=== PATIENT | male | born 1960 | race Caucasian/White ===

== ENCOUNTER 2021-08-16 10:30 | Emergency (ER) | payer OTHER, SELFPAY ==
[2021-08-16 10:47] VITALS: BP 158/78; PULSE 156; RESP 20; TEMP 37.9; O2SAT 100
--- NOTE | 2021-08-16 10:59 | ED.GENADULT ---
HPI - General Adult General Chief complaint: Abdominal Pain Stated complaint: abd pain/cough/uti Time Seen by Provider: 08/16/21 10:49 Source: patient Mode of arrival: ambulatory Limitations: no limitations History of Present Illness HPI narrative: 60-year-old male presented for multiple complaints including abdominal pain with associated left lower abdominal bulge, worsening over the past 3 weeks; decreased urinary output, decreased appetite with n/v/d. Endorses weakness and shortness of breath. Nephew at bedside also endorses yellow eyes and skin discoloration. Endorses night sweats. Denies hematuria or hematochezia or melena. Denies chest pain or palpitations. He drinks 1/5 of vodka daily none in the last 2 days, tremors noted. He smokes 1 pack/day. Related Data Home Medications Medication Instructions Recorded Confirmed No Home Medications 08/16/21 08/16/21 Allergies Allergy/AdvReac Type Severity Reaction Status Date / Time No Known Allergies Allergy Verified 08/16/21 10:33 Review of Systems Review of Systems: CONSTITUTIONAL: Endorses night sweats EYES: Endorses yellow discoloration denies visual changes ENT: Denies rhinorrhea, congestion CARDIOVASCULAR: Denies chest pain, palpitations, or edema. RESPIRATORY: Endorses shortness of breath and weakness denies cough GASTROINTESTINAL: Endorses abdominal pain, nausea, vomiting, diarrhea. Denies hematochezia, melena, hematemesis GENITOURINARY: Decreased urinary output denies dysuria, hematuria, or CVA tenderness. SKIN: Yellow discoloration, denies rash, itching, or wounds. MUSCULOSKELETAL: Denies back pain, joint pain, or myalgia. NEUROLOGIC: Denies headache, numbness, tingling, or weakness. PSYCH: Denies mood change All systems reviewed & are unremarkable except as noted in HPI and below PMFSH Comments At time of signature, I have reviewed and agree with nursing past medical, surgical, social and family history unless otherwise noted. Please see nursing chart for further information. There is no relevant family history pertinent to the presenting complaint Exam Narrative: GENERAL: toxic appearing, appears older than stated age HEAD: Normocephalic, atraumatic. EYES: EOMI. yellow sclera ENT: Mucous membranes pink and moist. NECK: Normal AROM. Supple. CHEST: right lower lobe wheezing labored, without respiratory distress. HEART:tachycardic, irregular No murmur appreciated. ABDOMEN: Tender abdomen: LLQ with guarding, asymmetry due to left lower bulging mass approx 5inches diameter, no bruising/discoloration; distended MUSCULOSKELETAL: No bony tenderness. EXTREMITIES: Normal range of motion. No edema. SKIN: Warm, dry, jaundice NEURO: Tremors to hands Alert and oriented x3. Gait unsteady/weakness. Course Course Emergency Course: Pt presented with multiple complaints, given presentation and exam, advised to go to ER for further evaluation and management. Pt agreeable to EMS transfer. EKG showed afib rvr. Patient is aware of diagnosis, understands and agrees to treatment plan. Anticipatory guidance given. Portions of this record may have been created with voice recognition software Level of Care: Express Care Visit Vital Signs Vital signs: Vital Signs Temperature 100.3 F H 08/16/21 10:47 Pulse Rate 156 H 08/16/21 10:47 Respiratory Rate 20 08/16/21 10:47 Blood Pressure 158/78 H 08/16/21 10:47 Pulse Oximetry 100 08/16/21 10:47 Temperature 100.3 F H 08/16/21 10:47 Pulse Rate 156 H 08/16/21 10:47 Respiratory Rate 20 08/16/21 10:47 Blood Pressure 158/78 H 08/16/21 10:47 Pulse Oximetry 100 08/16/21 10:47 reviewed Transfer Transfered to: [facility] rationale: Pt is agreeable to transfer for higher level of care. Requests transfer to [facility] via ambulance. Risks of transportation reviewed with pt; including injury, worsening of condition and . v/u. Report called to Dr Corbett, accepting physician
[2021-08-16 11:14] VITALS: PULSE 156; RESP 26; O2SAT 100
--- NOTE | 2021-08-16 11:28 | ECG_ITS ---
Measurements Intervals [place] Rate: 151 P: [place]: 0 QRS: 54 QRSD: 86 T: 59 QT: 327 QTc: 520 Interpretive Statements ATRIAL FIBRILLATION WITH RAPID VENTRICULAR RESPONSE VENTRICULAR PREMATURE COMPLEXES NONSPECIFIC ST & T-WAVE ABNORMALITY- ANTEROLAT/INF LEADS BASELINE ARTIFACT- I, III, AVL ABNORMAL ECG Electronically Signed On 08-16-2021 12:40:18 FUNERAL PRE NEED CONSULTANT by Philip Casarez D.O.
== END 2021-08-16 11:14 | disposition short-term general hospital (02) ==
PROVIDERS: Emergency Provider Nurse Practitioner Family
DX: I48.91 Unspecified atrial fibrillation (principal); R10.32 Left lower quadrant pain
CPT/HCPCS: 93005; 99215; G0463

== ENCOUNTER 2021-08-16 11:31 | Inpatient (IN) | payer OTHER, SELFPAY ==
[2021-08-16] VITALS (15 sets, daily range): BP systolic 92–145; BP diastolic 66–96; PULSE 79–912; RESP 16–24; TEMP 36.6–37.6; O2SAT 94–100; BMI 28.2
--- NOTE | ~2021-08-16 | CT_ITS ---
EXAMINATION: CT abdomen pelvis w con INDICATION: Abdominal pain and jaundice TECHNIQUE: Computed tomographic images of the abdomen and pelvis were obtained after the administrati on of 100 cc of Omnipaque 350 intravenous contrast. The dose-length product (DLP) was 754.32 mGy-cm. Automated exposure control and iterative reconstruction technique were employed. COMPARISON: None available FINDINGS: Minimal dependent atelectasis is present in the lung bases. The heart size is normal. There is heterogeneous enhancement of the liver a nodularity of the liver surface. The gallbladder is dist ended and contains multiple stones. The spleen, pancreas, and adrenal glands are normal. Hypoattenuat ing lesions in the kidneys, measuring up to 5 mm on the left, are too small to characterize but likel y represent cysts. There is calcified atherosclerosis of the aorta and many of the other arteries. T here is colonic diverticulosis with wall thickening of the sigmoid colon. There is an apparent fistul ous connection to an abscess of the anterior/superior bladder wall. The abscess measures approximatel y 13 x 10 x 15 cm and extends from the superior bladder wall anteriorly into the infraumbilical abdom inal wall. A second component of the abscess extends into the mesentery between the large and small b owel, best appreciated on coronal reconstructed image 81. There is moderate thoracic and lumbar spond ylosis. IMPRESSION: 1. Distended gallbladder with cholelithiasis, possible acute cholecystitis. Consider nuclear hepatobi liary scan. 2. Large abscess of the pelvis and lower abdominal wall, possibly due to fistulization between the si gmoid colon and bladder or urachal remnant. General and urologic surgical evaluation recommended. 3. Cirrhosis. These findings and recommendations were discussed with Dr. Jerad Maradiaga MD in the Emergency Dep artment at 1333 hours on 08/16/2021. Reviewed, dictated and finalized at location A. TRONIC TESTER IMPRESSION: 1. Distended gallbladder with cholelithiasis, possible acute cholecystitis. Con acupuncturist nuclear hepatobiliary scan. 2. Large abscess of the pelvis and lower abdominal wall, possibly due to fistul ization between the sigmoid colon and bladder or urachal remnant. General and u rologic surgical evaluation recommended. 3. Cirrhosis. These findings and recommendations were discussed with Garcia Escalona in the Emergency Department at 1333 hours on 08/16/2021.
--- NOTE | ~2021-08-16 | CT_ITS ---
EXAMINATION: CT abdomen pelvis w con DATE: 08/21/2021 08:56 INDICATION: Pelvic abscess. TECHNIQUE: Computed tomography (CT) of the abdomen and pelvis was performed with 100 mL Omnipaque 350 intravenous contrast. Automated exposure control and iterative reconstruction technique were employe d. The dose-length product was 720.47 mGy-cm. COMPARISON: CT abdomen and pelvis 08/16/2021 FINDINGS: The visualized portions of the lung bases demonstrate minimal atelectasis. There is a 4 mm nodule in left lower lobe, likely benign. No pleural effusion. The heart size is normal. No pericardi al effusion. The liver demonstrates steatosis and surface nodularity, consistent with cirrhosis. The gallbladder is distended and contains gallstones. Gallbladder wall thickening is noted. The spleen, p ancreas, adrenal glands, and kidneys are normal. There are scattered diverticula in the colon. There is wall thickening of the sigmoid colon. There is a network of fistulas between the sigmoid colon, ap pendix, small bowel, and anterosuperior bladder wall. There is anterosuperior wall thickening of the bladder. There is a percutaneous drain in expected position. No significant residual drainable fluid. There is a small volume of ascites. There are no pathologically enlarged lymph nodes. There is mild thoracolumbar spondylosis. IMPRESSION: 1. 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 Drain in expected position in this area without significant residual drainable fluid at this rocael e. 2. Small volume of ascites. 3. Cirrhosis of the liver. 4. Distended gallbladder with gallstones and gallbladder wall thickening. These findings are indeterm inate for acute cholecystitis given that gallbladder wall thickening is an expected finding with cirr hosis. Consider hepatobiliary scintigraphy. Reviewed, dictated and finalized at location A. BUYER IMPRESSION: 1. 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 Drain in expected position in this area without sign ificant residual drainable fluid at this time. 2. Small volume of ascites. 3. Cirrhosis of the liver. 4. Distended gallbladder with gallstones and gallbladder wall thickening. These findings are indeterminate for acute cholecystitis given that gallbladder wall thickening is an expected finding with cirrhosis. Consider hepatobiliary scint igraphy.
--- NOTE | ~2021-08-16 | XR_ITS ---
EXAMINATION: CYSTOGRAM DATE: 08/16/2021 16:00 INDICATION: Colovesical fistula TECHNIQUE: Initial uniform maker radiograph of the pelvis was performed. There was retrograde administration of Omnipaque 350 mixed with saline contrast into patient's existing Leo catheter. 16 fluoroscopic images of the pelvis were obtained including a postvoid image. Fluoroscopy exposure time was 0.8 yan brenden. FINDINGS: There is contrast within the bilateral renal collecting systems, ureters and bladder on the initial s cout image likely related to the prior contrast enhanced CT. The contrast in the bladder outlines the lunate consistent Leo catheter bulb and demonstrates a trabeculated mucosal contour. There is no e xtraluminal contrast accumulation on the initial uniform maker image or following the cystogram with addition al contrast filling of the bladder to suggest either bladder leak, fistulous communication to the bow el or communication with what appears to be an intramural or subserosal abscess at the dome of the bl adder on the prior CT. Some bladder spasm with spontaneous emptying of the bladder occurred during th e retrograde administration of contrast. IMPRESSION: 1. No evident bladder leak, fistulous communication to the bowel or communication with a suspected i ntramural or subserosal abscess at the dome of the bladder suspected based upon prior CT imaging. Reviewed, dictated and finalized at location A. RICTIVE PREPARATION OPERATOR IMPRESSION: 1. No evident bladder leak, fistulous communication to the bowel or communicat ion with a suspected intramural or subserosal abscess at the dome of the bladde r suspected based upon prior CT imaging.
--- NOTE | ~2021-08-16 | XR_ITS ---
EXAMINATION: XR chest 1V portable INDICATION: Cough TECHNIQUE: Portable AP chest at 1143 hours COMPARISON: None available FINDINGS: There are patchy airspace opacities throughout the lungs. No pleural effusion or pneumothor ax is identified. The cardiomediastinal silhouette is normal. IMPRESSION: 1. Patchy bilateral airspace opacities, likely pneumonia. Reviewed, dictated and finalized at location A. CLABLE MATERIALS COLLECTOR
--- NOTE | 2021-08-16 11:36 | ECG_ITS ---
Measurements Intervals [place] Rate: 138 P: 76 DE: 160 QRS: 58 QRSD: 92 T: 81 QT: 350 QTc: 531 Interpretive Statements SINUS TACHYCARDIA BORDERLINE ST-T WAVE ABNORMALITY- INF/HIGH LAT LEADS BASELINE ARTIFACT- I, II, III, AVR, AVL, AVF, V1-V6 ABNORMAL ECG Electronically Signed On 08-16-2021 13:56:24 PROJECT GEOPHYSICIST by Philip Casarez D.O.
[2021-08-16 12:09] LABS: Hematocrit 32.8 % (42.0-52.0); Hemoglobin 11.3 g/dL (14.0-18.0); Mean Corpuscular HGB Conc 34.5 g/dl (32-36); Mean Corpuscular Volume 107.5 fl (80-100); Mean Platelet Volume 11.8 fl (7.4-10.4); Platelet Count Result 195 k/mm3 (150-375); Red Blood Count 3.05 M/mm3 (4.6-6.20); Red Cell Distribution Width 13.8 % (11.5-14.5); White Blood Count 12.1 K/mm3 (4.5-10.0)
[2021-08-16 12:20] LABS: INR 1.4; Prothrombin Time 16.2 Seconds (11.1-14.7)
[2021-08-16 12:21] LABS: Partial Thromboplastin Time 25.4 SECONDS (22.3-36.8)
--- NOTE | 2021-08-16 12:21 | PC.NURSE ---
Pt states he has not seen his PCP in 1.5 years due to her moving. States he was in his usual state of health until approximately 3 weeks ago. He began having a cough and weakness. States he stopped drinking 3 days ago. Reports shaking and yellowing that is new.
--- NOTE | 2021-08-16 12:27 | ED.ABDPAIN ---
HPI - Abdominal Pain General Chief Complaint: Abdominal Pain Stated Complaint: abd pain Time Seen by Provider: 08/16/21 12:16 Source: patient Mode of arrival: ambulatory Limitations: no limitations History of Present Illness HPI narrative: Patient is a 6-year-old male complaining of abdominal distention and discomfort, from mid to lower abdomen, nonradiating, accompanied by yellowing of his skin that started 3 days ago. Patient denies any nausea, vomiting, diarrhea, urinary symptoms, fever or chills. Patient denies any chest pain, shortness of breath or GI bleed. Patient admits to drinking alcohol daily for long time. Related Data Home Medications Medication Instructions Recorded Confirmed No Home Medications 08/16/21 08/16/21 Allergies Allergy/AdvReac Type Severity Reaction Status Date / Time No Known Allergies Allergy Verified 08/16/21 10:33 Review of Systems Review of Systems: All systems reviewed & are unremarkable except as noted in HPI and below Constitutional: Constitutional: Denies body ache(s), Denies chills, Denies excessive sweating, Denies fatigue, Denies fever(s), Denies headache(s), Denies lethargy, Denies malaise, Denies weakness and Denies weight loss Eyes: Eyes: Denies blurry vision, Denies change in vision and Denies loss of vision ENT: Denies dizziness, Denies ear discharge, Denies headache(s), Denies lip swelling, Denies epistaxis, Denies nasal congestion, Denies neck pain, Denies throat swelling and Denies tongue swelling Cardiovascular: Cardiovascular: Denies chest pain, Denies chest pain at rest, Denies chest pain with activity, Denies diaphoresis, Denies rapid heart rate, Denies edema, Denies irregular heart rhythm, Denies lightheadedness, Denies palpitations, Denies dyspnea and Denies dyspnea on exertion Respiratory: Respiratory: Denies chest congestion, Denies cough, Denies hemoptysis, Denies dyspnea and Denies dyspnea on exertion Gastrointestinal: Gastrointestinal: Denies melena, Denies hematochezia, Denies diarrhea, Denies nausea, Denies vomiting and Denies hematemesis Musculoskeletal: Musculoskeletal: Denies abnormal gait, Denies deformity, Denies joint swelling, Denies limited range of motion, Denies neck pain and Denies numbness Neurologic: Denies Abnormal speech present, Denies abnormal gait, Denies confusion, Denies dizziness, Denies headache(s), Denies focal weakness, Denies loss of vision, Denies numbness, Denies Other visual disturbances, Denies Sensory deficit (Neuro) and Denies weakness Psychiatric: Psychiatric: Denies confusion, Denies depression, Denies auditory hallucinations, Denies homicidal ideation and Denies suicidal ideation Endocrine: Endocrine: Denies cold intolerance, Denies excessive sweating, Denies fatigue, Denies heat intolerance and Denies palpitations Hematologic/Lymphatic: Hematologic/Lymphatic: Denies easy bleeding and Denies easy bruising Allergic/Immunologic: Allergic/Immunologic: Denies lip swelling, Denies throat swelling and Denies tongue swelling PMFSH Comments Past medical history: None Family history: None Social history: Positive for smoker, heavy alcohol use, no drug use Exam Const: General: cooperative, comfortable, no acute distress, well developed, alert and awake; No confusion Orientation/consciousness: oriented to person, oriented to place, oriented to time, patient oriented x3 and No confusion Limitations: no limitations HENMT: Head: normal to inspection, normocephalic and atraumatic Ears: hearing grossly normal bilaterally, TM normal on the right and TM normal on the left General nose exam: Normal external nose present, Normal nares present and No nasal discharge present Face and sinus: normal facial exam Mouth: Yes Normal oral and palatal mucosa present, Yes lip normal, Yes tongue normal and Yes oropharynx normal Throat: posterior oropharynx normal, tonsils normal and uvula midline Eyes: Pupils: Equal, round and reactive pupils present
[2021-08-16 12:29] LABS: Alanine Aminotransferase 121 U/L (4-50); Albumin Level 3.2 g/dL (3.5-5.1); Alkaline Phosphatase 246 U/L (38-126); Anion Gap 16 mmol/L (8-16); Aspartate Amino Transferase 272 U/L (17-59); Bilirubin,Total 9.2 mg/dL (0.2-1.3); Blood Urea Nitrogen 19 mg/dL (9-20); Calcium 6.9 mg/dL (8.4-10.2); Carbon Dioxide 25 mmol/L (22-30); Chloride 93 mmol/L (98-107); Estimated CRCL calculation 59 ml/min; Estimated Glomerular Filt Rate 56; Glucose 192 mg/dL (65-110); Lipase 63 U/L (23-300); Potassium 3.3 mmol/L (3.4-5.0); Sodium 134 mmol/L (137-145)
[2021-08-16 12:34] LABS: Magnesium 0.4 mg/dL (1.6-2.3)
[2021-08-16 12:44] LABS: Lipase 61 U/L (23-300)
[2021-08-16] MEDS: LACTATED RINGERS 1,000 ML 999 ML IV CONT ×2 (12:44→14:04)
[2021-08-16] MEDS: IBUPROFEN 600 MG TABLET PO (12:45)
[2021-08-16 12:55] LABS: Band Neutrophils Percent 10 % (0-6); Lymphocytes Absolute Manual 0.48 K/mm3 (1.1-4.5); Monocytes Absolute Manual 0.36 K/mm3 (0.1-0.90); Monocytes Percent Manual 3 % (3-9); Neutrophils Absolute Manual 11.25 K/mm3 (1.3-6.7); Neutrophils Percent Manual 83 % (46-73); Platelet Estimate Adequate (Adequate); Total Cells Counted 100
--- NOTE | 2021-08-16 13:09 | PC.NURSE ---
pt in ct at this time.
[2021-08-16 14:18] LABS: Add Urine Microscopic? YES; Appearance Urine Clear (Clear); Bilirubin Urine 2+ (Negative); Blood Urine Negative (Negative); Color Urine Amber (Yellow); Glucose Urine UA 1+ mg/dL (Negative); Ketones Urine Negative (Negative); Leukocyte Esterase Ur Negative LEU/UL (Negative); Mucus Urine Moderate /lpf; Nitrate Urine Negative (Negative); Protein Urine 2+ mg/dL (Negative); Squamous Epithelial Cell Urine Many /hpf (Few); WBC Urine 0-3 /hpf
[2021-08-16] MEDS: LORazepam INJ (*CRX) 2 MG/ML VIAL 1 MG IV PUSH (14:30)
--- NOTE | 2021-08-16 15:00 | PM.IMHP ---
H&P: HPI History of Present Illness Date/Time: 08/16/21 15:00 Chief Complaint: Abdominal pain. Narrative: This is a pleasant 60-year-old male smoker with history of alcohol abuse who presented to the ER from urgent care for evaluation of abdominal pain. He reports a gradual onset of discomfort in the mid left lower quadrant about 3 weeks ago and a few days thereafter he noticed a bulge in the same area. He has a difficult time describing the pain but it is nonradiating and it has not been severe enough for him to take analgesics. He has had some chills and sweats at nighttime but no fever to his knowledge. The past several days he has noticed a generalized yellowing of his skin with decrease in appetite and he decided to go to urgent care for evaluation. On arrival there he was found to be in atrial fibrillation with rapid ventricular response though an EKG taken in the emergency department today showed sinus tachycardia. CT of the abdomen and pelvis showed a distended gallbladder with cholelithiasis and also a large abscess of the pelvis and lower abdominal wall, possibly due to fistulization between the sigmoid colon and bladder or urachal remnant as well as cirrhosis. Chest x-ray showed bilateral airspace opacities felt to be possible pneumonia. He is currently on his way for cystogram and depending on those results he may or may not go to the OR incision and drainage of the abdominal wall abscess. He is doing okay at this time and he denies fever, sinus congestion, otalgia, odynophagia, cough, shortness of breath, chest pain, pleuritic pain, nausea, and vomiting. He has had loose stools but he denies overt diarrhea. No acholic stools, melena, or hematochezia Review of Systems Review of Systems: 12 systems were reviewed. He has not had alcohol for 2 days and denies symptoms of withdrawal. He specifically denies tremors, anxiety, sweats, confusion, etc. He has never had signs or symptoms of alcohol withdrawal and he has had periods of time where he is quit drinking without issue. Except as documented, all other systems were reviewed and are negative. [facility] Past Medical History Medical History (Updated 08/16/21 @ 19:47 by Nataliia Alvarez PA-C) Alcohol abuse Cholelithiasis Cirrhosis Tobacco abuse Surgical History Surgical History History of open reduction and internal fixation (ORIF) procedure Internal fixation right leg fracture. Family History Family History (Updated 08/16/21 @ 19:40 by Nataliia Alvarez PA-C) Other Hypertension No pertinent family history Social History Social History (Updated 08/16/21 @ 19:41 by Nataliia Alvarez PA-C) Social History: Surrogate decision-maker: Campbell Gimenez, friend. CODE STATUS: Full code. Smoking packs per day: 1 Smoking cigarettes per day: 20.0 Smoking status: Current every day smoker Tobacco type: cigarettes Alcohol intake: current Alcohol use details: 06/28 vodka daily Substance use: never Additional living arrangements comments: The patient was in [place]. Originally from [facility]. Meds Home Medications and Allergies Home Medications Medication Instructions Recorded Confirmed Type No Home Medications 08/16/21 08/16/21 History Allergies Allergy/AdvReac Type Severity Reaction Status Date / Time No Known Allergies Allergy Verified 08/16/21 10:33 Vital Signs Vital Signs - 24 hr 08/16/21 11:34 08/16/21 11:50 08/16/21 12:05 Temperature 99.7 F H Pulse Rate 140 H 134 H Respiratory Rate 22 H 22 H 18 Blood Pressure 145/96 H 134/77 Pulse Oximetry 96 98 08/16/21 13:29 08/16/21 14:23 08/16/21 15:23 Temperature 99.2 F Pulse Rate 122 H 102 H 102 H Respiratory Rate 18 18 18 Blood Pressure 96/66 L 102/73 102/79 Pulse Oximetry 98 98 98 08/16/21 16:16 08/16/21 17:10 08/16/21 18:04 Temperature 97.9 F Pulse Rate 106 H 102 H 90 Respiratory Rate 22 H 18 21 H B
[2021-08-16 15:05] LABS: Reflex Lactic Acid Yes or No Add Lactic
[2021-08-16 15:35] LABS: Lactic Acid 2.6 mmol/L (0.7-2.1)
--- NOTE | 2021-08-16 15:35 | WPDGICN ---
Assessment and Plan Assessment and plan (1) Abdominal pain: Qualifiers: Abdominal location: left lower quadrant Qualified Code(s): R10.32 - Left lower quadrant pain Code(s): R10.9 - Unspecified abdominal pain Status: Acute Assessment and Plan: he has been found to have an abscess by CT scan. He has been started on antibiotics and (2) Intra-abdominal abscess: Code(s): K65.1 - Peritoneal abscess Status: Acute Assessment and Plan: CT scan suggest intra-abdominal abscess: IMPRESSION: 1. Distended gallbladder with cholelithiasis, possible acute cholecystitis. Consider nuclear hepatobiliary scan. 2. Large abscess of the pelvis and lower abdominal wall, possibly due to fistulization between the sigmoid colon and bladder or urachal remnant. General and urologic surgical evaluation recommended. 3. Cirrhosis. (3) Jaundice: Code(s): R17 - Unspecified jaundice Status: Acute Assessment and Plan: cirrhosis is noted on CT scan. Bile duct is not dilated. There is no choledocholithiasis seen. He does not seem to have symptoms suggestive of cholestatic jaundice such as itching. . I told that he has cirrhosis. He is not surprised. I explained that we cannot reverse cirrhosis but we will try to manage it and hopefully by staying off alcohol he will have some improvement (4) Cholelithiasis: Code(s): K80.20 - Calculus of gallbladder without cholecystitis without obstruction Status: Acute Assessment and Plan: Surgery has been consulted GI Consult Note Consult date/time: 08/16/21 15:35 HPI: Garrison Pierson is a 60 year old male who presents to the emergency room with several complaints. The main 1 is that he has discomfort in his lower abdomen. He states that this began 3 weeks ago with a feeling of soreness as though he had done multiple crunches. Over the next several days he began to notice arising and the tenderness. It is worse if he leans forward or sits up. He denies upper abdominal pain denies vomiting but he has not felt like eating for the past 3 weeks. He has not lost weight that he is aware of. He denies vomiting. He denies pruritus but he did become aware of the fact that he was jaundiced. He does not remember having epigastric pain or pain radiating to the back when he would eat that would be suspected with his gallbladder disease. CT scan of the abdomen does show cholelithiasis and an abdominal mass but does not show any evidence of choledocholithiasis or bile duct dilatation. He was never told that he had jaundice or liver disease before. He states that a few years ago he gave blood and short time later received a please send letter to referring physicianthat he shared with his primary care physician stating that he has antibodies to hepatitis. She did further studies and told that he did not have active hepatitis but simply had antibodies. He admits that he drinks a 5th of vodka per day he drinks his straight and has done that for many years Review of Systems Review of Systems: All systems reviewed & are unremarkable except as noted in HPI and below Meds Home Medications and Allergies Home Medications Medication Instructions Recorded Confirmed Type No Home Medications 08/16/21 08/16/21 History Allergies Allergy/AdvReac Type Severity Reaction Status Date / Time No Known Allergies Allergy Verified 08/16/21 10:33 Vital Signs Vital Signs - 24 hr 08/16/21 11:34 08/16/21 11:50 08/16/21 12:05 Temperature 37.6 C H Pulse Rate 140 H 134 H Respiratory Rate 22 H 22 H 18 Blood Pressure 145/96 H 134/77 Pulse Oximetry 96 98 08/16/21 13:29 08/16/21 14:23 08/16/21 15:23 Temperature 37.3 C Pulse Rate 122 H 102 H 102 H Respiratory Rate 18 18 18 Blood Pressure 96/66 L 102/73 102/79 Pulse Oximetry 98 98 98 Exam Const: General: no acute distress Nutritional Appearance: obese Orientation/consciousne
--- NOTE | 2021-08-16 15:41 | PM.CNGS ---
Assessment and Plan Assessment and plan (1) Intra-abdominal abscess: Code(s): K65.1 - Peritoneal abscess Status: Acute Assessment and Plan: CT scan reviewed and discussed with the patient in detail. There is evidence of a large abscess partially intra-abdominal and also extending into the subcutaneous tissue. There is a bulge correlating on exam where this abscess extends. There was concern of a possible fistulous connection to the bladder on CT. Urology was consulted. We ordered a stat cystogram, which showed no contrast leaking from the bladder to suggest a fistulous connection. It is unclear what the source of the abdominal abscess is at this time. There is some evidence of diverticulosis on CT with wall thickening, which could be a source. Another possibility could be a perforated malignancy. Regardless, the patient appears septic and we will plan to proceed with drainage of the intraabdominal abscess in the OR by Dr. Victor today. Keep NPO pre-operatively and continue broad-spectrum IV antibiotics. Thank you for allowing us to see the patient in consultation and we will continue to follow along with you. (2) Sepsis: Qualifiers: Sepsis acute organ dysfunction status: unspecified Sepsis type: sepsis due to unspecified organism Qualified Code(s): A41.9 - Sepsis, unspecified organism Code(s): A41.9 - Sepsis, unspecified organism Status: Acute Assessment and Plan: Criteria met on admission with tachycardia, leukocytosis, fever in the presence of an infection. Secondary to #1 above. Blood cx drawn. Continue broad-spectrum IV antibiotics and IV fluid resuscitation. Plan to take him to the OR today for drainage of the abdominal abscess. See plan above. (3) Jaundice: Code(s): R17 - Unspecified jaundice Status: Acute (4) Cirrhosis: Qualifiers: Ascites presence: unspecified Hepatic cirrhosis type: alcoholic cirrhosis Qualified Code(s): K70.30 - Alcoholic cirrhosis of liver without ascites Code(s): K74.60 - Unspecified cirrhosis of liver Status: Acute Assessment and Plan: Liver cirrhosis noted on CT with transaminitis. No evidence of an obstructive cause, no choledocholithiasis or dilation of bile ducts. Likely related to alcohol abuse. GI has been consulted. Monitor labs. (5) Alcohol abuse: Code(s): F10.10 - Alcohol abuse, uncomplicated Status: Acute Assessment and Plan: Encouraged cessation and stressed that this is imperative. (6) Atrial fibrillation with rapid ventricular response: Code(s): I48.91 - Unspecified atrial fibrillation Status: Acute Assessment and Plan: EKG from urgent care showed afib with RVR, repeat EKG here showed sinus tachycardia. HR improving with IV fluids and he appears to be in sinus tachycardia on the quality assurance monitor final while in the ER during my exam. (7) Tobacco abuse: Code(s): Z72.0 - Tobacco use Status: Acute (8) Cholelithiasis: Code(s): K80.20 - Calculus of gallbladder without cholecystitis without obstruction Status: Acute (9) Electrolyte imbalance: Code(s): E87.8 - Other disorders of electrolyte and fluid balance, not elsewhere classified Status: Acute Additional Plan I have discussed the patient's case and plan of care with Dr. Victor. History of Present Illness Consult details Consult date: 08/16/21 Reason for consult: other (Abdominal abscess into the intraabdominal space and subcutaneous space with possible fistulous connection to the bladder, cholelithiasis) Requesting physician: Jerad Maradiaga MD Narrative: This is a 60-year-old male with a history of heavy alcohol and tobacco abuse, who was referred to the ER after being evaluated in the [facility] urgent care. The patient report first noticing LLQ abdominal pain about 3 weeks ago. He reports ignoring the abdominal pain and after a few days, he began to notice a bulge in the left lower abdom
--- NOTE | 2021-08-16 16:03 | PC.NURSE ---
Pt in cystogram
[2021-08-16] MEDS: KCL 20 MEQ/SW 100 ML 100 ML 50 MEQ IVPB ×2 (16:16→22:28)
--- NOTE | 2021-08-16 16:34 | PC.NURSE ---
Pt contact updated. Report called to OR.
--- NOTE | 2021-08-16 17:11 | WPDANESEPPF ---
Anes - Initial Pre Proc Eval Procedure: Operation Date: 08/16/21 17:00 Proposed Procedures p Excision Abdominal Wall Mass - Luis Alberto Victor MD Date/Time: 08/16/21 17:11 Surgeon: Gokul Saavedra MD Pre Op Diagnosis: sepsis,acute cholecystitis,intra-abdominal/abdomin Patient Data Age: 60 Gender: M Height: 1.83 m Weight: 100 kg Last Vital Signs Temp 37.3 C 08/16/21 14:23 Pulse 102 H 08/16/21 17:10 Resp 18 08/16/21 17:10 BP 102/78 08/16/21 17:10 Pulse Ox 98 08/16/21 17:10 Allergies Allergy/AdvReac Type Severity Reaction Status Date / Time No Known Allergies Allergy Verified 08/16/21 10:33 Home Medications Medication Instructions Recorded Confirmed Type No Home Medications 08/16/21 08/16/21 History Laboratory Tests 08/16/21 08/16/21 08/16/21 11:46 11:46 11:46 WBC 12.1 K/mm3 H K/mm3 (4.5-10.0) RBC 3.05 M/mm3 L M/mm3 (4.6-6.20) Hgb 11.3 g/dL L g/dL (14.0-18.0) Hct 32.8 % L % (42.0-52.0) MCV 107.5 fl H fl (80-100) MCH 37.0 pg H pg (26-34) MCHC 34.5 g/dl g/dl (32-36) RDW 13.8 % % (11.5-14.5) Plt Count 195 k/mm3 k/mm3 (150-375) MPV 11.8 fl H fl (7.4-10.4) Immature Gran % (Auto) Not Reportable Neut % (Auto) Not Reportable Lymph % (Auto) Not Reportable Baker % (Auto) Not Reportable Eos % (Auto) Not Reportable Baso % (Auto) Not Reportable Lymph # (Auto) Not Reportable Baker # (Auto) Not Reportable Eos # (Auto) Not Reportable Baso # (Auto) Not Reportable Abs Immat Gran (auto) Not Reportable Absolute Neuts (auto) Not Reportable Absolute Nucleated RBC Not Reportable Total Counted 100 Neutrophils % (Manual) 83 % H % (46-73) Band Neutrophils % 10 % H % (0-6) Lymphocytes % (Manual) 4.0 % L % (18-44) Monocytes % (Manual) 3 % % (3-9) Nucleated RBC % Not Reportable Abs Neuts (Manual) 11.25 K/mm3 H K/mm3 (1.3-6.7) Abs Lymphs (Manual) 0.48 K/mm3 L K/mm3 (1.1-4.5) Abs Monocytes (Manual) 0.36 K/mm3 K/mm3 (0.1-0.90) Platelet Estimate Adequate (Adequate) PT 16.2 Seconds H Seconds (11.1-14.7) INR 1.4 APTT 25.4 SECONDS SECONDS (22.3-36.8) Sodium 134 mmol/L L mmol/L (137-145) Potassium 3.3 mmol/L L mmol/L (3.4-5.0) Chloride 93 mmol/L L mmol/L (98-107) Carbon Dioxide 25 mmol/L mmol/L (22-30) Anion Gap 16 mmol/L mmol/L (8-16) BUN 19 mg/dL mg/dL (9-20) Creatinine 1.30 mg/dL mg/dL (0.7-1.3) Estim Creat Clear Calc 59 ml/min ml/min Estimated GFR 56 L (59 - ) Glucose 192 mg/dL H mg/dL (65-110) Lactic Acid Calcium 6.9 mg/dL L mg/dL (8.4-10.2) Magnesium Total Bilirubin 9.2 mg/dL H mg/dL (0.2-1.3) AST 272 U/L H U/L (17-59) ALT 121 U/L H U/L (4-50) Alkaline Phosphatase 246 U/L H U/L (38-126) Total Protein 7.0 g/dL g/dL (6.3-8.2) Albumin 3.2 g/dL L g/dL (3.5-5.1) Lipase 63 U/L U/L (23-300) Urine Color Urine Appearance Urine pH Ur Specific Johnson Urine Protein Urine Glucose (UA) Urine Ketones Ur Blood (Man) Urine Nitrate Urine Bilirubin Urine Urobilinogen Leukocyte Esterase Rfl Urine RBC Urine WBC Ur Squamous Epith Cells Urine Mucus SARS-CoV-2 RNA (RT-PCR) 08/16/21 08/16/21 08/16/21 11:46 11:46 11:46 WBC RBC Hgb
--- NOTE | 2021-08-16 17:14 | WPDHPUPDATE1 ---
History and Physical Update Update Date/Time: 08/16/21 17:14 History and Physical has been reviewed, including an updated exam of the patient. There are NO changes in the patient's condition. Risks, benefits, and alternatives have been discussed and questions answered. Patient agrees to proceed with procedure.
[2021-08-16 17:15] LABS: SARS-CoV-2 RNA PCR Negative
[2021-08-16] MEDS: MAGNESIUM SULFATE 3GM/D5W100ML 3 GM/100 ML BAG IVPB (17:22)
[2021-08-16] MEDS: SODIUM CHLORIDE 0.9% IV 1,000 ML 30 ML IV CONT (18:05)
--- NOTE | 2021-08-16 18:48 | W.PM.PROC2 ---
Procedure Note - Detailed Date of Procedure 08/16/21 Pre-op Diagnosis Large abdominal wall abscess, sepsis Post-op Diagnosis same Procedure Performed Incision and drainage of complicated abdominal wall abscess Surgeon Luis Alberto Victor MD Bilingual Student Tutor ROLLY Waggoner Anesthesia general Indications Patient is a 60-year-old man who presented to the emergency room with lower abdominal pain and a large mass in the left lower quadrant, suprapubic area. He has lactic acidosis and evidence of sepsis. His CT scan showed a very large abdominal wall abscess that extends into the abdominal cavity and is associated with both the urinary bladder and the sigmoid colon. A cystogram was done and showed no communication of the abscess with either colon or urinary bladder. Etiology of the abscess is unclear. He is taken to surgery now for incision and drainage. Findings Very large abscess as expected. About 500 cc of purulent fluid were drained. It did communicate with the lower peritoneal cavity as well as the subcutaneous. Description of Procedure The patient was taken to surgery and induced into general anesthesia. The entire abdomen was prepped and draped. A transversely oriented incision over what appeared to be the apex of the abscess in the left lower abdomen was made. Dissection was carried through the subcutaneous and into the abscess itself. Foul-smelling purulent fluid came forth in abundance. Cultures for aerobes anaerobes and Gram stain were obtained. Using the suction we evacuated all of the abscess contents. I was then able to place a finger into the abscess and noted that it did probe down into the pelvis. The abscess cavity was thoroughly irrigated with saline. It was irrigated and suctioned several times. A large mushroom catheter was then passed into the abscess and down into the pelvic depth of the abscess. It was brought out the drainage site. The catheter was sutured to the skin with 2-0 silk. It was cut so that just a few cm extended beyond the skin level. A bulky gauze dressing was then placed. The patient was awakened and taken to recovery in good condition. Sponge and needle counts were correct x2. Estimated Blood Loss -5 Drains Yes (Large mushroom catheter) Packing No Pathology other (Culture sent) Complications No immediate complications Condition stable Disposition PACU
[2021-08-16 20:44] LABS: Anion Gap 9 mmol/L (8-16); Blood Urea Nitrogen 19 mg/dL (9-20); Calcium 6.3 mg/dL (8.4-10.2); Carbon Dioxide 27 mmol/L (22-30); Chloride 93 mmol/L (98-107); Estimated CRCL calculation 76 ml/min; Estimated Glomerular Filt Rate > 60; Glucose 233 mg/dL (65-110); Lactate Dehydrogenase 423 U/L (313-618); Magnesium 1.3 mg/dL (1.6-2.3); Potassium 3.3 mmol/L (3.4-5.0); Sodium 129 mmol/L (137-145)
[2021-08-16] MEDS: LACTATED RINGERS 1,000 ML 100 ML IV CONT (21:00)
[2021-08-16 21:03] LABS: Iron 30 ug/dL (49-181)
[2021-08-16 21:13] LABS: Percent Iron Saturation 23 % (20-50)
[2021-08-16 21:49] LABS: Hepatitis B Surface Antigen Negative (Negative)
[2021-08-16 21:54] LABS: HAV RESULT Negative (Negative); Hepatitis B Core IgM Result Negative (Negative)
[2021-08-16 21:56] LABS: Folic Acid 9.3 ng/mL (2.76->20); Vitamin B12 > 1000.0 pg/mL (239-931)
[2021-08-16 22:06] LABS: Hepatitis C Virus Antibody Negative (Negative)
[2021-08-16] MEDS: MAGNESIUM SULF 1 GM/D5W 100 ML 1 GM/100 ML BAG IVPB (22:27)
[2021-08-16] MEDS: THIAMINE HCL 200 MG/2 ML VIAL 100 MG IV PUSH (22:27)
[2021-08-17] VITALS (12 sets, daily range): BP systolic 100–144; BP diastolic 58–87; PULSE 68–109; RESP 12–21; TEMP 36.1–36.9; O2SAT 92–100
[2021-08-17 00:35] LABS: Glucose Point of Care 259 mg/dl (65-105)
[2021-08-17 04:59] LABS: Hematocrit 26.3 % (42.0-52.0); Immature Platelet Fraction Pct 10.8 % (0.9-11.2); Mean Corpuscular HGB Conc 34.2 g/dl (32-36); Mean Platelet Volume 11.9 fl (7.4-10.4); Platelet Count Result 140 k/mm3 (150-375); Red Blood Count 2.37 M/mm3 (4.6-6.20); Red Cell Distribution Width 13.7 % (11.5-14.5); White Blood Count 6.6 K/mm3 (4.5-10.0)
[2021-08-17 05:13] LABS: INR 1.4; Prothrombin Time 16.6 Seconds (11.1-14.7)
[2021-08-17 05:14] LABS: Partial Thromboplastin Time 34.6 SECONDS (22.3-36.8)
[2021-08-17 05:18] LABS: Alanine Aminotransferase 96 U/L (4-50); Albumin Level 2.7 g/dL (3.5-5.1); Alkaline Phosphatase 170 U/L (38-126); Anion Gap 10 mmol/L (8-16); Aspartate Amino Transferase 150 U/L (17-59); Bilirubin,Total 6.6 mg/dL (0.2-1.3); Blood Urea Nitrogen 18 mg/dL (9-20); Calcium 6.1 mg/dL (8.4-10.2); Carbon Dioxide 27 mmol/L (22-30); Chloride 95 mmol/L (98-107); Estimated CRCL calculation 84 ml/min; Estimated Glomerular Filt Rate > 60; Glucose 241 mg/dL (65-110); Magnesium 1.3 mg/dL (1.6-2.3); Potassium 3.2 mmol/L (3.4-5.0); Sodium 132 mmol/L (137-145)
[2021-08-17 05:19] LABS: Lactic Acid Reflex 1.2 mmol/L (0.7-2.1)
[2021-08-17] MEDS: MAGNESIUM SULF 2 GM/WATER 50ML 2 GM/50 ML BAG IVPB (08:13)
[2021-08-17] MEDS: CALCIUM GLUC 2,000 MG/NS 100ML 2,000 MG/100 ML BAG 100 MG IVPB (08:14)
[2021-08-17 08:24] LABS: Hemoglobin A1C 5.8 % (<5.7)
[2021-08-17 08:45] LABS: Glucose Point of Care 232 mg/dl (65-105)
[2021-08-17] MEDS: INSULIN ASPART (*BKC) 100 UNITS/ML SUB-Q ×3 (08:45→16:47)
[2021-08-17] MEDS: POTASSIUM CHLORIDE 20 MEQ TABLET 40 MEQ PO (08:48)
[2021-08-17] MEDS: FOLIC ACID 1 MG TABLET PO (08:49)
[2021-08-17] MEDS: THIAMINE HCL 100 MG TABLET PO (08:49)
[2021-08-17] MEDS: PANTOPRAZOLE 40 MG TABLET PO (08:50)
[2021-08-17] MEDS: ENOXAPARIN 40 MG/0.4 ML SYRINGE SUB-Q (08:50)
[2021-08-17] MEDS: chlordiazePOXIDE (*CRX) 25 MG CAPSULE PO ×3 (08:57→20:41)
[2021-08-17] MEDS: LACTATED RINGERS 1,000 ML 100 ML IV CONT ×2 (10:12→20:40)
--- NOTE | 2021-08-17 11:44 | WPDANESPN ---
Anes - Prog Note Post-Op Date/Time: 08/17/21 11:44 Cardiovascular status: normal and other (management per ICU team) Respiratory status: normal Airway patency: baseline Mental status: baseline Post-Op hydration status: normal and other (management per ICU team) Vital Signs: Last Vital Signs Temp 36.9 C 08/17/21 04:00 Pulse 68 08/17/21 06:00 Resp 12 08/17/21 06:00 BP 100/59 L 08/17/21 06:00 Pulse Ox 95 08/17/21 06:00 Pain Score (VAS): 1 I/O: Intake & Output 08/16/21 08/17/21 08/17/21 23:59 07:59 15:59 Intake Total 1200 1200 Output Total 225 900 Balance 975 300 Laboratory Tests 08/17/21 04:43 08/17/21 04:43 08/16/21 08/16/21 08/16/21 11:46 11:46 11:46 WBC 12.1 H RBC 3.05 L Hgb 11.3 L Hct 32.8 L MCV 107.5 H MCH 37.0 H MCHC 34.5 RDW 13.8 Plt Count 195 MPV 11.8 H Immature Gran % (Auto) Not Reportable Neut % (Auto) Not Reportable Lymph % (Auto) Not Reportable Ventura % (Auto) Not Reportable Eos % (Auto) Not Reportable Baso % (Auto) Not Reportable Lymph # (Auto) Not Reportable Ventura # (Auto) Not Reportable Eos # (Auto) Not Reportable Baso # (Auto) Not Reportable Abs Immat Gran (auto) Not Reportable Absolute Neuts (auto) Not Reportable Absolute Nucleated RBC Not Reportable Total Counted 100 Neutrophils % (Manual) 83 H Band Neutrophils % 10 H Lymphocytes % (Manual) 4.0 L Monocytes % (Manual) 3 Nucleated RBC % Not Reportable Abs Neuts (Manual) 11.25 H Abs Lymphs (Manual) 0.48 L Abs Monocytes (Manual) 0.36 Platelet Estimate Adequate % Immature Plt Fraction PT 16.2 H INR 1.4 APTT 25.4 Sodium 134 L Potassium 3.3 L Chloride 93 L Carbon Dioxide 25 Anion Gap 16 BUN 19 Creatinine 1.30 Estim Creat Clear Calc 59 Estimated GFR 56 L Glucose 192 H POC Capillary Glucose Hemoglobin A1c Lactic Acid Calcium 6.9 L Magnesium Iron TIBC % Saturation Ferritin Total Bilirubin 9.2 H AST 272 H ALT 121 H Alkaline Phosphatase 246 H Lactate Dehydrogenase Total Protein 7.0 Albumin 3.2 L Lipase 63 Vitamin B12 Folate TSH (Reflex) Urine Color Urine Appearance Urine pH Ur Specific Gomer Urine Protein Urine Glucose (UA) Urine Ketones Ur Blood (Man) Urine Nitrate Urine Bilirubin Urine Urobilinogen Leukocyte Esterase Rfl Urine RBC Urine WBC Ur Squamous Epith Cells Urine Mucus Hepatitis A IgM Ab Hep Bs Antigen Hep B Core IgM Ab Hepatitis C Ab Screen SARS-CoV-2 RNA (RT-PCR) Blood Type Antibody Screen 08/16/21 08/16/21 08/16/21 11:46 11:46 11:46 WBC RBC Hgb Hct MCV MCH MCHC RDW Plt Count MPV Immature Gran % (Auto) Neut % (Auto) Lymph % (Auto) Ventura % (Auto) Eos % (Auto) Baso % (Auto) Lymph # (Auto) Ventura # (Auto) Eos # (Auto) Baso # (Auto) Abs Immat Gran (auto) Absolute Neuts (auto) Absolute Nucleated RBC Total Counted Neutrophils % (Manual) Band Neutrophils % Lymphocytes % (Manual) Monocytes % (Manual) Nucleated RBC % Abs Neuts (Manual) Abs Lymphs (Manual) Abs Monocytes (Manual) Platelet Estimate % Immature Plt Fraction PT INR APTT Sodium Potassium Chloride Carbon Dioxide Anion Gap BUN Creatinine Estim Creat Clear Calc Estimated GFR Glucose POC Capillary Glucose Hemoglobin A1c Lactic Acid 5.0 H* Calcium Magnesium 0.4 L Iron TIBC % Saturation Ferritin Total Bilirubin AST ALT Alkaline Phosphatase Lactate Dehydrogenase Total Protein Albumin Lipase 61 Vitamin B12 Folate TSH (Reflex) Urine Color Urine Appearance Urine pH Ur Specific Gomer Urine Protein Urine G
[2021-08-17 12:28] LABS: Glucose Point of Care 273 mg/dl (65-105)
--- NOTE | 2021-08-17 12:29 | PM.IMPN ---
Progress Note: A&P Assessment and Plan (1) Sepsis: Qualifiers: Sepsis acute organ dysfunction status: unspecified Sepsis type: sepsis due to unspecified organism Qualified Code(s): A41.9 - Sepsis, unspecified organism Code(s): A41.9 - Sepsis, unspecified organism Status: Acute Assessment and Plan: RESOLVED Present on admission and supported by fever, leukocytosis with bandemia, and lactic acidosis in the setting of infection. Lactic acid level has improved with IV fluid rehydration. -08/16 Blood cultures with no growth so far -08/16: Abscess cultures pending (2) Abdominal wall abscess: Code(s): L02.211 - Cutaneous abscess of abdominal wall Status: Acute Assessment and Plan: 08/16/2021 status post incision and drainage of the abdominal abscess by surgery -see operative note for further information -surgery following the patient -discuss with surgery team, okay to transfer to [facility] floor (3) Electrolyte abnormality: Code(s): E87.8 - Other disorders of electrolyte and fluid balance, not elsewhere classified Status: Acute Assessment and Plan: potassium and magnesium replaced, -mild hyponatremia at with sodium levels of 132, continue to monitor (4) Hyperglycemia: Code(s): R73.9 - Hyperglycemia, unspecified Status: Acute Assessment and Plan: Added sliding scale insulin and Accu-Cheks -hemoglobin A1c this admission is 5.8 (5) Hepatitis: Code(s): K75.9 - Inflammatory liver disease, unspecified Status: Acute Assessment and Plan: Etiology not entirely clear. May be related to sepsis, alcoholic hepatitis, or other. Possible cholecystitis on CT though that seems less likely by exam. -hepatitis panel is negative -continue to monitor (6) Cirrhosis: Qualifiers: Ascites presence: unspecified Hepatic cirrhosis type: alcoholic cirrhosis Qualified Code(s): K70.30 - Alcoholic cirrhosis of liver without ascites Code(s): K74.60 - Unspecified cirrhosis of liver Status: Acute Assessment and Plan: Likely related to his ongoing alcohol abuse. Will need close follow-up for this as an outpatient. (7) Macrocytic anemia: Code(s): D53.9 - Nutritional anemia, unspecified Status: Acute Assessment and Plan: Check iron studies and B12/folate. -could be related to alcohol abuse (8) Tobacco abuse: Code(s): Z72.0 - Tobacco use Status: Acute Assessment and Plan: Discussed cessation of tobacco use, he is going to look into it. He declines the need for nicotine patch. (9) Alcohol abuse: Code(s): F10.10 - Alcohol abuse, uncomplicated Status: Acute Assessment and Plan: Initiate CIWA protocol. Continue thiamine and folic acid. -patient on Librium -continue p.r.n. Ativan (10) Abnormal CT scan, gallbladder: Code(s): R93.2 - Abnormal findings on diagnostic imaging of liver and biliary tract Status: Acute Assessment and Plan: CT shows possible acute cholecystitis. History and exam do not suggest this however. -surgery following (11) Intra-abdominal abscess: Code(s): K65.1 - Peritoneal abscess Status: Acute Assessment and Plan: As above Additional Plan This dictation may have been done utilizing a voice recognition system. Attempts have been made to correct errors. However, there may be uncorrected grammatical, spelling, and recognition errors present. Subjective Date/time seen: 08/17/21 12:29 Interval history: 60-year-old gentleman with history of cholelithiasis, cirrhosis, tobacco abuse, alcohol abuse presented the ED on 08/16/2020 with complains of abdominal pain. CT scan of the abdomen and pelvis showed distended gallbladder with cholelithiasis and also a large abscess of the pelvis and lower abdominal wall possibly to fistulization between the sigmoid colon and bladder or urachal
--- NOTE | 2021-08-17 13:00 | PM.PNGS ---
Progress Note: A&P Assessment and Plan (1) Intra-abdominal abscess: Code(s): K65.1 - Peritoneal abscess Status: Acute Assessment and Plan: POD#1 incision and drainage of complicated abdominal wall abscess. WBC down to normal. Afebrile. Clinically improving. Continue with gauze dressing changes over the left lower quadrant drain and monitor output. Continue IV antibiotics. Okay from our standpoint to transfer the patient out of ICU today. Okay to remove Leo catheter. (2) Sepsis: Qualifiers: Sepsis acute organ dysfunction status: unspecified Sepsis type: sepsis due to unspecified organism Qualified Code(s): A41.9 - Sepsis, unspecified organism Code(s): A41.9 - Sepsis, unspecified organism Status: Acute Assessment and Plan: Improving following source control in the OR yesterday. Blood cx NGTD. Continue broad-spectrum IV antibiotics. Downgraded out of ICU today. (3) Jaundice: Code(s): R17 - Unspecified jaundice Status: Acute Assessment and Plan: Total bilirubin down to 6.6 today. Continue to trend labs. (4) Cirrhosis: Qualifiers: Ascites presence: unspecified Hepatic cirrhosis type: alcoholic cirrhosis Qualified Code(s): K70.30 - Alcoholic cirrhosis of liver without ascites Code(s): K74.60 - Unspecified cirrhosis of liver Status: Acute (5) Alcohol abuse: Code(s): F10.10 - Alcohol abuse, uncomplicated Status: Acute Additional Plan I have discussed the plan of care with Dr. Victor. Subjective Subjective Date/Time Seen: 08/17/21 13:00 Post Op day: 1 Patient reports: no new complaints, feels better, pain is less and afebrile Interval history: Patient seen and examined. He reports feeling much better today. He is not having any abdominal pain at the time of my exam. He is eating a solid diet and tolerating this well. Denies any nausea, vomiting, or bloating. Per nursing, they did have to change his abdominal dressing overnight due to saturation of drainage. Vital signs remained stable overnight and the grain unloader machine is comfortable with downgrading the patient today. Review of Systems Review of Systems: All systems reviewed & are unremarkable except as noted in HPI and below Constitutional: Constitutional: Reports as per HPI, Reports no additional constitutional complaints, Denies chills and Denies fever(s) Cardiovascular: Cardiovascular: Reports no additional cardiovascular complaints, Denies chest pain and Denies leg edema Respiratory: Respiratory: Reports no additional respiratory complaints, Denies cough and Denies dyspnea Gastrointestinal: Gastrointestinal: Reports as per HPI and Reports no additional gastrointestinal complaints Neurologic: Reports system reviewed and no additional complaints, except as documented, Denies Abnormal speech present and Denies focal weakness Exam Const: General: comfortable, no acute distress, alert and awake Orientation/consciousness: patient oriented x3 GI: Inspection: non-distended GI Palp: Yes Soft to palpation, Yes Tenderness to palpation present (GI) ( Only at drain site and left lower quadrant, improved), No Guarding due to palpation present (GI), No Palpable mass present ( no bulge) and No Rebound tenderness present Auscultation: normal bowel sounds Other: left lower quadrant mushroom drain in place draining cloudy serosanguineous drainage Urinary Catheter: Urinary Catheter: patent and draining and urine clear Skin: General skin exam: jaundice Neuro: General: moves all extremities and no focal motor deficits Extrem: General: no clubbing, cyanosis or edema and no calf tenderness Psych: Mental Status: mental status grossly normal Insight: Good insight present (Psych) Judgement: Good judgement present (Psych) Objective Data Vital Signs Vital Signs: Vital Signs - 24 hr 08/16/21 13:29 08/16/21 14:23 08/16/21 15:23 Temperature 99.2 F Pulse Rate 122
[2021-08-17] MEDS: HYDROcodone/acetaminophen (*CRX) 5-325 MG TABLET 1 TAB PO (13:37)
[2021-08-17] MEDS: MORPHINE SULFATE (*CRX) 4 MG/ML INJ IV PUSH (14:16)
--- NOTE | 2021-08-17 16:06 | PC.NURSE ---
This patient, Garrison Pierson, was received from ICU on 08/17/21 at 1540 . Patient/family oriented to unit policies and routines
[2021-08-17 16:33] LABS: Glucose Point of Care 244 mg/dl (65-105)
--- NOTE | 2021-08-17 16:38 | PC.NURSE ---
This patient, Garrison Pierson, was transferred to room 256 via wheelchair on 08/17/21 at 1638. Personal belongings sent with patient. Report given to med/transverse abdominal muscle surgeon. Appropriate documentation sent with patient.
[2021-08-17 21:06] LABS: Glucose Point of Care 212 mg/dl (65-105)
[2021-08-18] VITALS (8 sets, daily range): BP systolic 102–122; BP diastolic 57–72; PULSE 91–109; RESP 16–18; TEMP 35.8–36.6; O2SAT 94–96
[2021-08-18] MEDS: chlordiazePOXIDE (*CRX) 25 MG CAPSULE PO ×4 (02:35→21:27)
[2021-08-18] MEDS: LACTATED RINGERS 1,000 ML 100 ML IV CONT (05:26)
--- NOTE | 2021-08-18 07:24 | WPDGIPROGNO ---
Progress Note: A&P Assessment and Plan (1) Abdominal pain: Qualifiers: Abdominal location: left lower quadrant Qualified Code(s): R10.32 - Left lower quadrant pain Code(s): R10.9 - Unspecified abdominal pain Status: Inactive Assessment and Plan: he has been found to have an abscess by CT scan. He has been started on antibiotics and and surgery has drained it. This was an abdominal wall abscess not communicating with internal organs (2) Intra-abdominal abscess: Code(s): K65.1 - Peritoneal abscess Status: Acute Assessment and Plan: CT scan suggest intra-abdominal abscess: IMPRESSION: 1. Distended gallbladder with cholelithiasis, possible acute cholecystitis. Consider nuclear hepatobiliary scan. 2. Large abscess of the pelvis and lower abdominal wall, possibly due to fistulization between the sigmoid colon and bladder or urachal remnant. General and urologic surgical evaluation recommended. 3. Cirrhosis. according to surgeon's report this did communicate with the intraperitoneal cavity but did not communicate with the colon or bladder (3) Jaundice: Code(s): R17 - Unspecified jaundice Status: Acute Assessment and Plan: cirrhosis is noted on CT scan. Bile duct is not dilated. There is no choledocholithiasis seen. He does not seem to have symptoms suggestive of cholestatic jaundice such as itching. . I told that he has cirrhosis. He is not surprised. I explained that we cannot reverse cirrhosis but we will try to manage it and hopefully by staying off alcohol he will have some improvement 08/18 bilirubin is down to 6.5. AST and ALT slightly higher at 2:55 a.m. and 100. Alkaline phosphatase 193. Iron studies are normal and hepatitis serology all negative (4) Cholelithiasis: Code(s): K80.20 - Calculus of gallbladder without cholecystitis without obstruction Status: Acute Assessment and Plan: Surgery has been consulted This may explain part of his liver enzyme elevation although he is known to have cirrhosis and has not been followed by anybody. Subjective Date/time seen: 08/18/21 07:24 he states that he is still having pain, not unexpectedly, from drainage of his abscess. Otherwise no new complaints. His white blood count is down to normal. INR is 1.5. Bilirubin has come down to 6.5 but LFTs are slightly higher. He will need to be evaluated as an outpatient regarding his liver disease. Ideally with hepatology. Dr. King will be covering for me until August 23 Review of Systems Review of Systems: All systems reviewed & are unremarkable except as noted in HPI and below Exam Const: General: alert and uncomfortable Orientation/consciousness: patient oriented x3 Resp: Auscultation: clear to auscultation bilaterally Cardio: Rhythm: regular rhythm GI: Inspection: other ( large dressing to lower abdomen) GI Palp: Yes abdominal tenderness ( mild and generalized, mostly near abscess), Yes Soft to palpation, No Tenderness to palpation present (GI) and No Ascites present Auscultation: normal bowel sounds Neuro: General: patient oriented x3 Objective Data Vital Signs Vital Signs: Vital Signs - 24 hr 08/17/21 08:00 08/17/21 10:00 08/17/21 12:00 Temperature 36.6 C 36.6 C Pulse Rate 84 81 77 Respiratory Rate 16 14 18 Blood Pressure 117/87 115/87 127/81 Pulse Oximetry 98 98 97 08/17/21 14:00 08/17/21 15:49 08/17/21 19:08 Temperature 36.6 C 36.1 C L 36.2 C L Pulse Rate 90 109 H 94 Respiratory Rate 19 16 18 Blood Pressure 144/82 H 107/61 100/60 Pulse Oximetry 95 95 100 08/17/21 20:00 08/17/21 23:14 08/18/21 00:00 Temperature 36.2 C L Pulse Rate 94 101 H Respiratory Rate 18 18 Blood Pressure 100/60 102/58 L 102/58 L Pulse Oximetry 100 92 08/18/21 03:27 08/18/21 04:00 Temperature 36.2 C L Pulse Rate 91 Respiratory Rate 16 Blood Pressure 103/57 L 103/57 L Pulse Oximetry 94 Intake/O
[2021-08-18 07:44] LABS: Glucose Point of Care 169 mg/dl (65-105)
[2021-08-18] MEDS: PANTOPRAZOLE 40 MG TABLET PO (08:24)
[2021-08-18] MEDS: THIAMINE HCL 100 MG TABLET PO (08:24)
[2021-08-18] MEDS: ENOXAPARIN 40 MG/0.4 ML SYRINGE SUB-Q (08:24)
[2021-08-18] MEDS: FOLIC ACID 1 MG TABLET PO (08:24)
--- NOTE | 2021-08-18 10:53 | PM.IMPN ---
Progress Note: A&P Assessment and Plan (1) Sepsis: Qualifiers: Sepsis acute organ dysfunction status: unspecified Sepsis type: sepsis due to unspecified organism Qualified Code(s): A41.9 - Sepsis, unspecified organism Code(s): A41.9 - Sepsis, unspecified organism Status: Acute Assessment and Plan: RESOLVED Present on admission and supported by fever, leukocytosis with bandemia, and lactic acidosis in the setting of infection. Lactic acid level has improved with IV fluid rehydration. -08/16 Blood cultures with no growth so far -08/16: Abscess cultures pending . G stain with many white blood cells few Gram-positive cocci few Gram-negative bacilli currently on Zosyn start date 08/17/2021 (2) Abdominal wall abscess: Code(s): L02.211 - Cutaneous abscess of abdominal wall Status: Acute Assessment and Plan: 08/16/2021 status post incision and drainage of the abdominal abscess by surgery -see operative note for further information -surgery following the patient (3) Electrolyte abnormality: Code(s): E87.8 - Other disorders of electrolyte and fluid balance, not elsewhere classified Status: Acute Assessment and Plan: potassium and magnesium replaced, -mild hyponatremia at with sodium levels of 132, continue to monitor Recheck labs today (4) Hyperglycemia: Code(s): R73.9 - Hyperglycemia, unspecified Status: Acute Assessment and Plan: Added sliding scale insulin and Accu-Cheks -hemoglobin A1c this admission is 5.8 Likely due to underlying infection (5) Hepatitis: Code(s): K75.9 - Inflammatory liver disease, unspecified Status: Acute Assessment and Plan: Etiology not entirely clear. May be related to sepsis, alcoholic hepatitis, or other. Possible cholecystitis on CT though that seems less likely by exam. -hepatitis panel is negative -continue to monitor (6) Cirrhosis: Qualifiers: Ascites presence: unspecified Hepatic cirrhosis type: alcoholic cirrhosis Qualified Code(s): K70.30 - Alcoholic cirrhosis of liver without ascites Code(s): K74.60 - Unspecified cirrhosis of liver Status: Acute Assessment and Plan: Likely related to his ongoing alcohol abuse. Will need close follow-up for this as an outpatient. (7) Macrocytic anemia: Code(s): D53.9 - Nutritional anemia, unspecified Status: Acute Assessment and Plan: Check iron studies and B12/folate. -could be related to alcohol abuse (8) Tobacco abuse: Code(s): Z72.0 - Tobacco use Status: Acute Assessment and Plan: Discussed cessation of tobacco use, he is going to look into it. He declines the need for nicotine patch. (9) Alcohol abuse: Code(s): F10.10 - Alcohol abuse, uncomplicated Status: Acute Assessment and Plan: Initiate CIWA protocol. Continue thiamine and folic acid. -patient on Librium -continue p.r.n. Ativan (10) Abnormal CT scan, gallbladder: Code(s): R93.2 - Abnormal findings on diagnostic imaging of liver and biliary tract Status: Acute Assessment and Plan: CT shows possible acute cholecystitis. History and exam do not suggest this however. -surgery following (11) Intra-abdominal abscess: Code(s): K65.1 - Peritoneal abscess Status: Acute Assessment and Plan: As above Subjective Date/time seen: 08/18/21 10:53 Interval history: 60-year-old gentleman with history of cholelithiasis, cirrhosis, tobacco abuse, alcohol abuse presented the ED on 08/16/2020 with complains of abdominal pain. CT scan of the abdomen and pelvis showed distended gallbladder with cholelithiasis and also a large abscess of the pelvis and lower abdominal wall possibly to fistulization between the sigmoid colon and bladder or urachal remnant as well as cirrhosis. Chest x-ray showed bilateral airspace opacities felt to be possible pn
[2021-08-18 11:19] LABS: Hematocrit 24.5 % (42.0-52.0); Hemoglobin 8.4 g/dL (14.0-18.0); Immature Platelet Fraction Pct 9.6 % (0.9-11.2); Mean Corpuscular HGB Conc 34.3 g/dl (32-36); Mean Corpuscular Hemoglobin 37.5 pg (26-34); Mean Corpuscular Volume 109.4 fl (80-100); Mean Platelet Volume 11.3 fl (7.4-10.4); Platelet Count Result 151 k/mm3 (150-375); Red Blood Count 2.24 M/mm3 (4.6-6.20); Red Cell Distribution Width 13.7 % (11.5-14.5); White Blood Count 7.9 K/mm3 (4.5-10.0)
[2021-08-18 11:40] LABS: INR 1.4; Prothrombin Time 16.6 Seconds (11.1-14.7)
[2021-08-18 11:42] LABS: Glucose Point of Care 184 mg/dl (65-105)
[2021-08-18 12:10] LABS: Band Neutrophils Percent 8 % (0-6); Lymphocytes Absolute Manual 0.55 K/mm3 (1.1-4.5); Metamyelocytes Percent 2 %; Monocytes Absolute Manual 0.31 K/mm3 (0.1-0.90); Monocytes Percent Manual 4 % (3-9); Neutrophils Absolute Manual 6.87 K/mm3 (1.3-6.7); Neutrophils Percent Manual 79 % (46-73); Total Cells Counted 100
[2021-08-18 12:11] LABS: Hypochromasia 2+ (NORMAL); Platelet Estimate Adequate (Adequate)
[2021-08-18 12:41] LABS: Alanine Aminotransferase 100 U/L (4-50); Albumin Level 2.3 g/dL (3.5-5.1); Alkaline Phosphatase 193 U/L (38-126); Anion Gap 10 mmol/L (8-16); Aspartate Amino Transferase 255 U/L (17-59); Bilirubin,Total 6.5 mg/dL (0.2-1.3); Blood Urea Nitrogen 14 mg/dL (9-20); Calcium 6.2 mg/dL (8.4-10.2); Carbon Dioxide 26 mmol/L (22-30); Chloride 95 mmol/L (98-107); Estimated CRCL calculation 84 ml/min; Estimated Glomerular Filt Rate > 60; Glucose 188 mg/dL (65-110); Potassium 3.7 mmol/L (3.4-5.0); Sodium 131 mmol/L (137-145)
--- NOTE | 2021-08-18 15:16 | PM.PNGS ---
Progress Note: A&P Assessment and Plan (1) Abdominal wall abscess: Code(s): L02.211 - Cutaneous abscess of abdominal wall Status: Acute Assessment and Plan: Seems to be well drained. Probably repeat CT scan on Saturday. Cultures show polymicrobial infection by Gram stain. No growth of any organisms as yet. Patient continues on Zosyn which is appropriate. Advance to regular diet. DC Leo catheter. Increase ambulation. (2) Cirrhosis: Qualifiers: Ascites presence: unspecified Hepatic cirrhosis type: alcoholic cirrhosis Qualified Code(s): K70.30 - Alcoholic cirrhosis of liver without ascites Code(s): K74.60 - Unspecified cirrhosis of liver Status: Chronic Assessment and Plan: Bilirubin around 6. Remains jaundiced as below. Dr. Medina following (3) Jaundice: Code(s): R17 - Unspecified jaundice Status: Acute (4) Macrocytic anemia: Code(s): D53.9 - Nutritional anemia, unspecified Status: Chronic (5) Alcohol abuse: Code(s): F10.10 - Alcohol abuse, uncomplicated Status: Chronic (6) Cholelithiasis: Code(s): K80.20 - Calculus of gallbladder without cholecystitis without obstruction Status: Chronic Assessment and Plan: Gallstones on imaging but no evidence of cholecystitis. No plans for cholecystectomy at this time. Cholecystectomy in cirrhotic patient is much more hazardous procedure. Would only recommend if clearly indicated and necessary. Subjective Subjective Date/Time Seen: 08/18/21 15:16 Post Op day: 2 Patient reports: no new complaints, pain is less, tolerating a regular diet and afebrile Review of Systems Review of Systems: All systems reviewed & are unremarkable except as noted in HPI and below Constitutional: Constitutional: Denies chills, Denies fever(s), Denies headache(s) and Reports lethargy Cardiovascular: Cardiovascular: Denies chest pain and Denies dyspnea Respiratory: Respiratory: Denies cough and Denies dyspnea Gastrointestinal: Gastrointestinal: Denies abdominal pain, Denies GI cramping, Denies heartburn, Denies diarrhea and Denies vomiting Neurologic: Denies confusion and Denies headache(s) Exam Const: General: comfortable and no acute distress; No confusion Orientation/consciousness: patient oriented x3 and No confusion GI: Inspection: non-distended and incision (Dressing dry and intact. Drain in good position.) GI Palp: Yes Soft to palpation, Yes Tenderness to palpation present (GI) (Mild tenderness at drain site), No Guarding due to palpation present (GI), No Hernia present, No Palpable mass present and No Rebound tenderness present Auscultation: normal bowel sounds Skin: General skin exam: jaundice Neuro: General: patient oriented x3, no focal motor deficits and No confusion Extrem: General: no calf tenderness and no edema Psych: Affect: normal affect Insight: Good insight present (Psych) Judgement: Good judgement present (Psych) Objective Data Vital Signs Vital Signs: Vital Signs - 24 hr 08/17/21 15:49 08/17/21 19:08 08/17/21 20:00 Temperature 36.1 C L 36.2 C L Pulse Rate 109 H 94 94 Respiratory Rate 16 18 18 Blood Pressure 107/61 100/60 100/60 Pulse Oximetry 95 100 100 08/17/21 23:14 08/18/21 00:00 08/18/21 03:27 Temperature 36.2 C L 36.2 C L Pulse Rate 101 H 91 Respiratory Rate 18 16 Blood Pressure 102/58 L 102/58 L 103/57 L Pulse Oximetry 92 94 08/18/21 04:00 08/18/21 09:50 08/18/21 14:00 Temperature 36.0 C L 36.4 C L Pulse Rate 94 95 Respiratory Rate 18 18 Blood Pressure 103/57 L 115/68 118/72 Pulse Oximetry 95 96 Intake/Output Intake/Output: Intake & Output 08/15/21 08/16/21 08/17/21 08/18/21 23:59 23:59 23:59 23:59 Intake Total 2250 3320 2880 Output Total 225 1999 850 Balance 2024 1319 2029 Meds/Results Medications: Active Medications Generic Name Dose Route Start Last Admin Trade Name Freq PRN Reason Stop
[2021-08-18 16:25] LABS: Glucose Point of Care 173 mg/dl (65-105)
[2021-08-18 21:36] LABS: Glucose Point of Care 182 mg/dl (65-105)
[2021-08-19] VITALS (7 sets, daily range): BP systolic 100–126; BP diastolic 52–90; PULSE 78–101; RESP 16–20; TEMP 36.1–37.1; O2SAT 96–99
[2021-08-19] MEDS: chlordiazePOXIDE (*CRX) 25 MG CAPSULE PO ×4 (03:00→19:37)
[2021-08-19 05:47] LABS: Basophils Absolute Auto 0.1 K/mm3 (0.0-0.1); Basophils Percent Auto 0.5 % (0.2-1.2); Eosinophils Percent Auto 0.3 % (0-4.4); Hematocrit 26.4 % (42.0-52.0); Immature Granulocyte Absolute 0.08 K/mm3 (0.00-0.031); Immature Granulocyte Percent A 0.9 % (0-0.5); Lymphocytes Absolute Auto 1.07 K/mm3 (0.9-3.2); Lymphocytes Percent Auto 11.6 % (18.3-44.2); Mean Corpuscular HGB Conc 34.1 g/dl (32-36); Mean Corpuscular Volume 108.6 fl (80-100); Mean Platelet Volume 11.6 fl (7.4-10.4); Monocytes Absolute Auto 0.5 K/mm3 (0.1-0.6); Monocytes Percent Auto 5.2 % (2.6-8.5); Neutrophils Absolute Auto 7.5 K/mm3 (1.3-6.7); Neutrophils Percent Auto 81.5 % (45.5-73.1); Platelet Count Result 149 k/mm3 (150-375); Red Blood Count 2.43 M/mm3 (4.6-6.20); Red Cell Distribution Width 13.8 % (11.5-14.5); White Blood Count 9.2 K/mm3 (4.5-10.0)
[2021-08-19 05:55] LABS: Alanine Aminotransferase 141 U/L (4-50); Albumin Level 2.6 g/dL (3.5-5.1); Alkaline Phosphatase 244 U/L (38-126); Anion Gap 5 mmol/L (8-16); Aspartate Amino Transferase 295 U/L (17-59); Bilirubin,Total 7.1 mg/dL (0.2-1.3); Blood Urea Nitrogen 11 mg/dL (9-20); Calcium 6.1 mg/dL (8.4-10.2); Carbon Dioxide 29 mmol/L (22-30); Chloride 97 mmol/L (98-107); Estimated CRCL calculation 84 ml/min; Estimated Glomerular Filt Rate > 60; Glucose 163 mg/dL (65-110); Sodium 131 mmol/L (137-145)
[2021-08-19 07:38] LABS: Glucose Point of Care 143 mg/dl (65-105)
[2021-08-19] MEDS: FOLIC ACID 1 MG TABLET PO (09:20)
[2021-08-19] MEDS: THIAMINE HCL 100 MG TABLET PO (09:20)
[2021-08-19] MEDS: PANTOPRAZOLE 40 MG TABLET PO (09:20)
[2021-08-19] MEDS: ENOXAPARIN 40 MG/0.4 ML SYRINGE SUB-Q (09:20)
[2021-08-19 11:28] LABS: Glucose Point of Care 164 mg/dl (65-105)
[2021-08-19 11:42] LABS: Glucose Point of Care 179 mg/dl (65-105)
--- NOTE | 2021-08-19 13:22 | PM.IMPN ---
Progress Note: A&P Assessment and Plan (1) Sepsis: Qualifiers: Sepsis acute organ dysfunction status: unspecified Sepsis type: sepsis due to unspecified organism Qualified Code(s): A41.9 - Sepsis, unspecified organism Code(s): A41.9 - Sepsis, unspecified organism Status: Acute Assessment and Plan: RESOLVED Present on admission and supported by fever, leukocytosis with bandemia, and lactic acidosis in the setting of infection. Lactic acid level has improved with IV fluid rehydration. -08/16 Blood cultures with no growth so far -08/16: Abscess cultures with E coli. Streptococcus anginosus. sensitivity pending currently on Zosyn start date 08/17/2021 (2) Abdominal wall abscess: Code(s): L02.211 - Cutaneous abscess of abdominal wall Status: Acute Assessment and Plan: 08/16/2021 status post incision and drainage of the abdominal abscess by surgery -see operative note for further information -surgery following the patient (3) Electrolyte abnormality: Code(s): E87.8 - Other disorders of electrolyte and fluid balance, not elsewhere classified Status: Acute Assessment and Plan: potassium and magnesium replaced, -mild hyponatremia at with sodium levels of 132, continue to monitor Recheck labs today (4) Hyperglycemia: Code(s): R73.9 - Hyperglycemia, unspecified Status: Acute Assessment and Plan: Added sliding scale insulin and Accu-Cheks -hemoglobin A1c this admission is 5.8 Likely due to underlying infection (5) Hepatitis: Code(s): K75.9 - Inflammatory liver disease, unspecified Status: Acute Assessment and Plan: Etiology not entirely clear. May be related to sepsis, alcoholic hepatitis, or other. Possible cholecystitis on CT though that seems less likely by exam. -hepatitis panel is negative -continue to monitor (6) Cirrhosis: Qualifiers: Ascites presence: unspecified Hepatic cirrhosis type: alcoholic cirrhosis Qualified Code(s): K70.30 - Alcoholic cirrhosis of liver without ascites Code(s): K74.60 - Unspecified cirrhosis of liver Status: Chronic Assessment and Plan: Likely related to his ongoing alcohol abuse. Will need close follow-up for this as an outpatient. (7) Macrocytic anemia: Code(s): D53.9 - Nutritional anemia, unspecified Status: Chronic Assessment and Plan: Check iron studies and B12/folate. -could be related to alcohol abuse (8) Tobacco abuse: Code(s): Z72.0 - Tobacco use Status: Acute Assessment and Plan: Discussed cessation of tobacco use, he is going to look into it. He declines the need for nicotine patch. (9) Alcohol abuse: Code(s): F10.10 - Alcohol abuse, uncomplicated Status: Chronic Assessment and Plan: Initiate CIWA protocol. Continue thiamine and folic acid. -patient on Librium -continue p.r.n. Ativan (10) Abnormal CT scan, gallbladder: Code(s): R93.2 - Abnormal findings on diagnostic imaging of liver and biliary tract Status: Acute Assessment and Plan: CT shows possible acute cholecystitis. History and exam do not suggest this however. -surgery following (11) Intra-abdominal abscess: Code(s): K65.1 - Peritoneal abscess Status: Acute Assessment and Plan: As above Additional Plan This dictation may have been done utilizing a voice recognition system. Attempts have been made to correct errors. However, there may be uncorrected grammatical, spelling, and recognition errors present. Subjective Date/time seen: 08/19/21 13:22 Interval history: 60-year-old gentleman with history of cholelithiasis, cirrhosis, tobacco abuse, alcohol abuse presented the ED on 08/16/2020 with complains of abdominal pain. CT scan of the abdomen and pelvis showed distended gallbladder with cholelithiasis and also a large abscess of the pelvis and lower
--- NOTE | 2021-08-19 14:35 | WPDGIPROGNO ---
Progress Note: A&P Assessment and Plan (1) Abdominal wall abscess: Code(s): L02.211 - Cutaneous abscess of abdominal wall Status: Acute Assessment and Plan: s/p surgical drainage, on antibiotics- this is better surgery planning to repeat CT scan in few days to reassess repeat imaging did not find fistula (2) Cirrhosis, alcoholic: Code(s): K70.30 - Alcoholic cirrhosis of liver without ascites Status: Acute Assessment and Plan: new diagnosis, he is an alcoholic hepatitis panel negative jaundice probably exacerbated by infection, he has normal renal function now nutritional support, thiamine and will need to stop drinking altogether if never had egd then at some point will need egd to assess if varices also will need close follow-up with liver imaging every 6 months for HCC screening (3) Jaundice: Code(s): R17 - Unspecified jaundice Status: Acute Assessment and Plan: elevated but relatively stable (4) Macrocytic anemia: Code(s): D53.9 - Nutritional anemia, unspecified Status: Chronic Assessment and Plan: multifactorial from cirrhosis, etoh abuse, infection, etc Subjective Date/time seen: 08/19/21 14:35 Interval history: no new complaints, abdominal pain better- dressing in place Review of Systems Review of Systems: All systems reviewed & are unremarkable except as noted in HPI and below Exam Const: General: comfortable and no acute distress; No confusion Orientation/consciousness: patient oriented x3 and No confusion Eyes: Other: icteric sclerae Neck: Neck: supple Resp: Auscultation: clear to auscultation bilaterally Cardio: Rate: regular rate GI: Inspection: non-distended and incision (Dressing dry and intact. Drain in good position.) GI Palp: Yes Soft to palpation, Yes Tenderness to palpation present (GI) (Mild tenderness at drain site), No Guarding due to palpation present (GI), No Palpable mass present and No Rebound tenderness present Auscultation: normal bowel sounds Skin: General skin exam: no rashes or lesions noted and jaundice Neuro: General: patient oriented x3, no focal motor deficits and No confusion Speech: normal speech Extrem: General: no calf tenderness and no edema Psych: Affect: normal affect Insight: Good insight present (Psych) Judgement: Good judgement present (Psych) Objective Data Vital Signs Vital Signs: Vital Signs - 24 hr 08/18/21 17:55 08/18/21 19:09 08/18/21 23:24 Temperature 97.9 F 98 F 96.4 F L Pulse Rate 104 H 109 H 106 H Pulse Rate [Bilateral Pedal (Dorsalis Pedis) Palpation] Respiratory Rate 16 18 17 Blood Pressure 115/60 122/62 116/64 Pulse Oximetry 96 96 94 08/19/21 04:00 08/19/21 10:12 08/19/21 12:00 Temperature 98.8 F 97.0 F L Pulse Rate 97 91 Pulse Rate [Bilateral Pedal (Dorsalis Pedis) Palpation] 78 Respiratory Rate 17 20 Blood Pressure 100/60 126/90 Pulse Oximetry 96 99 08/19/21 14:13 Temperature 98.6 F Pulse Rate 98 Pulse Rate [Bilateral Pedal (Dorsalis Pedis) Palpation] Respiratory Rate 16 Blood Pressure 101/71 Pulse Oximetry 98 Intake/Output Intake/Output: Intake & Output 08/16/21 08/17/21 08/18/21 08/19/21 23:59 23:59 23:59 23:59 Intake Total 2250 3320 2980 870 Output Total 225 2000 1150 750 Balance 2025 1320 1830 120 Meds/Results Medications: Active Medications Generic Name Dose Route Start Last Admin Trade Name Freq PRN Reason Stop Dose Admin Acetaminophen 500 mg 08/16/21 19:04 Acetaminophen 500 Mg Tablet PO Q6H PRN Mild Pain (1-3) or Fever Hydrocodone Bitart/Acetaminophen 1 tab 08/16/21 19:04 08/17/21 13:37 Hydrocodone/Acetaminophen (*Crx) 5-325 Mg Tablet PO 1 tab Q4H PRN Administration Pain Rated 4-6 Chlordiazepoxide HCl 25 mg 08/17/21 09:00 08/19/21 09:19 Chlordiazepoxide (*Crx) 25 Mg Capsule PO 25 mg Q6H RYANN Administration Dextrose 12.5 gm 08/17/21 07:44 Dextrose 50% 25
[2021-08-19] MEDS: POTASSIUM CHLORIDE 20 MEQ TABLET 40 MEQ PO (15:07)
[2021-08-19 16:10] LABS: Glucose Point of Care 199 mg/dl (65-105)
--- NOTE | 2021-08-19 16:12 | PM.PNGS ---
Progress Note: A&P Assessment and Plan (1) Abdominal wall abscess: Code(s): L02.211 - Cutaneous abscess of abdominal wall Status: Acute Assessment and Plan: Seems to be well drained. Probably repeat CT scan on Saturday. Cultures show polymicrobial infection by Gram stain. E coli and strep anginosus now identified but no sensitivities yet. Patient continues on Zosyn which is still appropriate. Advance to regular diet. urinating okay with Leo catheter out. Increase ambulation. (2) Cirrhosis: Qualifiers: Ascites presence: unspecified Hepatic cirrhosis type: alcoholic cirrhosis Qualified Code(s): K70.30 - Alcoholic cirrhosis of liver without ascites Code(s): K74.60 - Unspecified cirrhosis of liver Status: Chronic Assessment and Plan: Bilirubin around 7. Remains jaundiced as below. Dr. Medina following (3) Jaundice: Code(s): R17 - Unspecified jaundice Status: Acute (4) Macrocytic anemia: Code(s): D53.9 - Nutritional anemia, unspecified Status: Chronic Assessment and Plan: H&H stable. (5) Alcohol abuse: Code(s): F10.10 - Alcohol abuse, uncomplicated Status: Chronic (6) Cholelithiasis: Code(s): K80.20 - Calculus of gallbladder without cholecystitis without obstruction Status: Chronic Assessment and Plan: Gallstones on imaging but no evidence of cholecystitis. No plans for cholecystectomy at this time. Cholecystectomy in cirrhotic patient is much more hazardous procedure. Would only recommend if clearly indicated and necessary. (7) Electrolyte abnormality: Code(s): E87.8 - Other disorders of electrolyte and fluid balance, not elsewhere classified Status: Acute Assessment and Plan: potassium low at 3.0 hospitalist has supplemented Magnesium low at 1.0 ( I ordered one 3 gram rider and will start p.o. supplementation tomorrow morning). Recheck magnesium in 2 days Subjective Subjective Date/Time Seen: 08/19/21 16:12 Post Op day: 3 (Postop day 3 status post left lower quadrant abdominal abscess drainage) Patient reports: no new complaints, feels better and still having pain ( but significantly less than prior to surgery) Interval history: patient lying on his side sleeping when I entered the room. He awakens easily. Seems to be comfortable. Nurse states that he is up walking in the the room but not in the wong. Apparently tolerating his diet. Review of Systems Review of Systems: All systems reviewed & are unremarkable except as noted in HPI and below Constitutional: Constitutional: Reports as per HPI, Reports no additional constitutional complaints, Denies chills, Reports fatigue, Denies fever(s), Denies headache(s) and Reports lethargy Respiratory: Respiratory: Reports no additional respiratory complaints, Denies cough and Denies dyspnea Gastrointestinal: Gastrointestinal: Reports as per HPI Musculoskeletal: Musculoskeletal: Denies deformity, Denies joint swelling, Denies numbness and Denies tingling Integumentary/Breasts: Skin/Breast: Reports jaundice Neurologic: Reports system reviewed and no additional complaints, except as documented, Denies Abnormal speech present, Denies confusion, Denies headache(s), Denies focal weakness, Denies numbness and Denies tingling Psychiatric: Psychiatric: Denies confusion and Reports other (alcohol abuse) Endocrine: Endocrine: Reports fatigue Exam Const: General: comfortable, no acute distress, alert and awake; No confusion Nutritional Appearance: average body habitus Orientation/consciousness: patient oriented x3 and No confusion HENMT: Head: normocephalic and atraumatic Ears: hearing grossly normal bilaterally Mouth: No moist mucous membranes Eyes: General: appearance normal, both eyes and all related structures Sclera: scleral abnormality bilateral (scleral icteric) Pupils: Equal, round and reactive pupils present EOM: EOMs intac
[2021-08-19] MEDS: MAGNESIUM SULFATE 3GM/D5W100ML 3 GM/100 ML BAG IVPB (16:16)
[2021-08-19 20:46] LABS: Glucose Point of Care 195 mg/dl (65-105)
[2021-08-20] VITALS: BP 116/54; PULSE 91; RESP 16; TEMP 36.8; O2SAT 96
[2021-08-20 02:35] LABS: Glucose Point of Care 170 mg/dl (65-105)
[2021-08-20] MEDS: chlordiazePOXIDE (*CRX) 25 MG CAPSULE PO ×2 (02:37→09:32)
[2021-08-20 04:00] VITALS: BP 133/59; PULSE 82; RESP 17; TEMP 36.4; O2SAT 97
[2021-08-20 04:55] LABS: Basophils Absolute Auto 0.1 K/mm3 (0.0-0.1); Basophils Percent Auto 0.7 % (0.2-1.2); Eosinophils Absolute Auto 0.1 K/mm3 (0-0.3); Eosinophils Percent Auto 0.9 % (0-4.4); Hematocrit 26.8 % (42.0-52.0); Immature Granulocyte Absolute 0.12 K/mm3 (0.00-0.031); Immature Granulocyte Percent A 1.3 % (0-0.5); Lymphocytes Absolute Auto 1.13 K/mm3 (0.9-3.2); Lymphocytes Percent Auto 12.7 % (18.3-44.2); Mean Corpuscular HGB Conc 33.6 g/dl (32-36); Mean Corpuscular Volume 110.3 fl (80-100); Mean Platelet Volume 11.1 fl (7.4-10.4); Monocytes Absolute Auto 0.5 K/mm3 (0.1-0.6); Monocytes Percent Auto 5.5 % (2.6-8.5); Neutrophils Percent Auto 78.9 % (45.5-73.1); Platelet Count Result 151 k/mm3 (150-375); Red Blood Count 2.43 M/mm3 (4.6-6.20); Red Cell Distribution Width 14.3 % (11.5-14.5); White Blood Count 8.9 K/mm3 (4.5-10.0)
[2021-08-20 05:06] LABS: Alanine Aminotransferase 137 U/L (4-50); Albumin Level 2.6 g/dL (3.5-5.1); Alkaline Phosphatase 273 U/L (38-126); Anion Gap 3 mmol/L (8-16); Aspartate Amino Transferase 234 U/L (17-59); Bilirubin,Total 7.5 mg/dL (0.2-1.3); Blood Urea Nitrogen 9 mg/dL (9-20); Calcium 6.3 mg/dL (8.4-10.2); Carbon Dioxide 29 mmol/L (22-30); Chloride 99 mmol/L (98-107); Estimated CRCL calculation 106 ml/min; Estimated Glomerular Filt Rate > 60; Glucose 152 mg/dL (65-110); Potassium 3.4 mmol/L (3.4-5.0); Sodium 131 mmol/L (137-145)
[2021-08-20 07:48] LABS: Glucose Point of Care 159 mg/dl (65-105)
[2021-08-20 08:00] VITALS: BP 106/63; PULSE 91; RESP 16; TEMP 36.5; O2SAT 99
[2021-08-20] MEDS: ENOXAPARIN 40 MG/0.4 ML SYRINGE SUB-Q (09:32)
[2021-08-20] MEDS: PANTOPRAZOLE 40 MG TABLET PO (09:32)
[2021-08-20] MEDS: FOLIC ACID 1 MG TABLET PO (09:32)
[2021-08-20] MEDS: MAGNESIUM OXIDE 400 MG TABLET PO (09:32)
[2021-08-20] MEDS: THIAMINE HCL 100 MG TABLET PO (09:32)
--- NOTE | 2021-08-20 10:11 | WPDGIPROGNO ---
Progress Note: A&P Assessment and Plan (1) Abdominal wall abscess: Code(s): L02.211 - Cutaneous abscess of abdominal wall Status: Acute Assessment and Plan: s/p surgical drainage, on antibiotics- this is better and he has less pain. imaging negative for fistula surgery planning to repeat CT scan in 1-2 days to reassess (2) Cirrhosis, alcoholic: Code(s): K70.30 - Alcoholic cirrhosis of liver without ascites Status: Acute Assessment and Plan: new diagnosis, he is an alcoholic hepatitis panel negative jaundice probably exacerbated by infection and has been ~ 7 he also could have component of alcoholic hepatitis but can not get steroids because active infection normal renal function and he is comfortable nutritional support, thiamine and will need to stop drinking altogether if never had egd then at some point will need egd to assess if varices also will need close follow-up with liver imaging every 6 months for HCC screening (3) Jaundice: Code(s): R17 - Unspecified jaundice Status: Acute Assessment and Plan: elevated but relatively stable (4) Macrocytic anemia: Code(s): D53.9 - Nutritional anemia, unspecified Status: Chronic Assessment and Plan: multifactorial from cirrhosis, etoh abuse, infection, etc Subjective Date/time seen: 08/20/21 10:11 Interval history: he is doing well and comfortable watching TV Review of Systems Review of Systems: All systems reviewed & are unremarkable except as noted in HPI and below Exam Const: General: comfortable and no acute distress; No confusion Orientation/consciousness: patient oriented x3 and No confusion Eyes: Other: icteric sclerae Neck: Neck: supple Resp: Auscultation: clear to auscultation bilaterally Cardio: Rate: regular rate GI: Inspection: non-distended and incision (Dressing dry and intact. Drain in good position.) GI Palp: Yes Soft to palpation, Yes Tenderness to palpation present (GI) (Mild tenderness at drain site), No Guarding due to palpation present (GI), No Palpable mass present and No Rebound tenderness present Auscultation: normal bowel sounds Skin: General skin exam: no rashes or lesions noted and jaundice Neuro: General: patient oriented x3, no focal motor deficits and No confusion Speech: normal speech Extrem: General: no calf tenderness and no edema Psych: Affect: normal affect Insight: Good insight present (Psych) Judgement: Good judgement present (Psych) Objective Data Vital Signs Vital Signs: Vital Signs - 24 hr 08/19/21 10:12 08/19/21 12:00 08/19/21 14:13 Temperature 97.0 F L 98.6 F Pulse Rate 91 98 Pulse Rate [Bilateral Pedal (Dorsalis Pedis) Palpation] 78 Respiratory Rate 20 16 Blood Pressure 126/90 101/71 Pulse Oximetry 99 98 08/19/21 16:00 08/19/21 17:57 08/19/21 20:00 Temperature 98.4 F 98.4 F Pulse Rate 101 H 100 Pulse Rate [Bilateral Pedal (Dorsalis Pedis) Palpation] 86 Respiratory Rate 16 17 Blood Pressure 100/52 L 118/71 Pulse Oximetry 96 97 08/20/21 00:00 08/20/21 04:00 08/20/21 08:00 Temperature 98.3 F 97.6 F 97.7 F Pulse Rate 91 82 91 Pulse Rate [Bilateral Pedal (Dorsalis Pedis) Palpation] Respiratory Rate 16 17 16 Blood Pressure 116/54 L 133/59 L 106/63 Pulse Oximetry 96 97 99 Intake/Output Intake/Output: Intake & Output 08/17/21 08/18/21 08/19/21 08/20/21 23:59 23:59 23:59 23:59 Intake Total 3320 2980 1160 880 Output Total 1999 1150 1550 600 Balance 1320 1830 -390 280 Meds/Results Medications: Active Medications Generic Name Dose Route Start Last Admin Trade Name Freq PRN Reason Stop Dose Admin Acetaminophen 500 mg 08/16/21 19:04 Acetaminophen 500 Mg Tablet PO Q6H PRN Mild Pain (1-3) or Fever Hydrocodone Bitart/Acetaminophen 1 tab 08/16/21 19:04 08/17/21 13:37 Hydrocodone/Acetaminophen (*Crx) 5-325 Mg Tablet PO 1 tab Q4H PRN Administration Pain Rated 4-6
[2021-08-20 12:00] VITALS: BP 99/60; PULSE 85; RESP 16; TEMP 37.3; O2SAT 97
[2021-08-20 13:08] LABS: Glucose Point of Care 174 mg/dl (65-105)
--- NOTE | 2021-08-20 14:08 | PM.IMPN ---
Progress Note: A&P Assessment and Plan (1) Sepsis: Qualifiers: Sepsis acute organ dysfunction status: unspecified Sepsis type: sepsis due to unspecified organism Qualified Code(s): A41.9 - Sepsis, unspecified organism Code(s): A41.9 - Sepsis, unspecified organism Status: Acute Assessment and Plan: RESOLVED Present on admission and supported by fever, leukocytosis with bandemia, and lactic acidosis in the setting of infection. Lactic acid level has improved with IV fluid rehydration. -08/16 Blood cultures with no growth so far -08/16: Abscess cultures with E coli. Streptococcus anginosus. sensitivity pending currently on Zosyn start date 08/17/2021 (2) Abdominal wall abscess: Code(s): L02.211 - Cutaneous abscess of abdominal wall Status: Acute Assessment and Plan: 08/16/2021 status post incision and drainage of the abdominal abscess by surgery -see operative note for further information -surgery following the patient Plan for tomorrow per General surgery Drain in place further management per surgery (3) Electrolyte abnormality: Code(s): E87.8 - Other disorders of electrolyte and fluid balance, not elsewhere classified Status: Acute Assessment and Plan: potassium and magnesium replaced, -mild hyponatremia at with sodium levels of 132, continue to monitor Recheck labs and monitor (4) Hyperglycemia: Code(s): R73.9 - Hyperglycemia, unspecified Status: Acute Assessment and Plan: Added sliding scale insulin and Accu-Cheks -hemoglobin A1c this admission is 5.8 Likely due to underlying infection (5) Hepatitis: Code(s): K75.9 - Inflammatory liver disease, unspecified Status: Acute Assessment and Plan: Etiology not entirely clear. May be related to sepsis, alcoholic hepatitis, or other. Possible cholecystitis on CT though that seems less likely by exam. -hepatitis panel is negative -continue to monitor (6) Cirrhosis: Qualifiers: Ascites presence: unspecified Hepatic cirrhosis type: alcoholic cirrhosis Qualified Code(s): K70.30 - Alcoholic cirrhosis of liver without ascites Code(s): K74.60 - Unspecified cirrhosis of liver Status: Chronic Assessment and Plan: Likely related to his ongoing alcohol abuse. Will need close follow-up for this as an outpatient. GI following (7) Macrocytic anemia: Code(s): D53.9 - Nutritional anemia, unspecified Status: Chronic Assessment and Plan: Check iron studies and B12/folate. -could be related to alcohol abuse (8) Tobacco abuse: Code(s): Z72.0 - Tobacco use Status: Acute Assessment and Plan: Discussed cessation of tobacco use, he is going to look into it. He declines the need for nicotine patch. (9) Alcohol abuse: Code(s): F10.10 - Alcohol abuse, uncomplicated Status: Chronic Assessment and Plan: Initiate CIWA protocol. Continue thiamine and folic acid. -patient on Librium, will taper Librium to q.8 hours -continue p.r.n. Ativan (10) Abnormal CT scan, gallbladder: Code(s): R93.2 - Abnormal findings on diagnostic imaging of liver and biliary tract Status: Acute Assessment and Plan: CT shows possible acute cholecystitis. History and exam do not suggest this however. -surgery following (11) Intra-abdominal abscess: Code(s): K65.1 - Peritoneal abscess Status: Acute Assessment and Plan: As above Additional Plan This dictation may have been done utilizing a voice recognition system. Attempts have been made to correct errors. However, there may be uncorrected grammatical, spelling, and recognition errors present. Subjective Date/time seen: 08/20/21 14:08 Interval history: 60-year-old gentleman with history of cholelithiasis, cirrhosis, tobacco abuse, alcohol abuse presented the ED on 08/16/2020 with complains of abdominal pain
--- NOTE | 2021-08-20 15:59 | PM.PNGS ---
Progress Note: A&P Assessment and Plan (1) Abdominal wall abscess: Code(s): L02.211 - Cutaneous abscess of abdominal wall Status: Acute Assessment and Plan: Seems to be well drained. Will schedule repeat CT scan of ABD/pelvis for late morning on Saturday so if Dr. Victor doesn't end up wanting it he can cancel it on AM rounds.. Cultures show polymicrobial infection by Gram stain. E coli and strep anginosus now identified but no sensitivities yet. Patient continues on Zosyn which is still appropriate. Has dvanced to regular diet. urinating okay with Leo catheter out. Increase ambulation. (Nurses report he is up walking (2) Cirrhosis: Qualifiers: Ascites presence: unspecified Hepatic cirrhosis type: alcoholic cirrhosis Qualified Code(s): K70.30 - Alcoholic cirrhosis of liver without ascites Code(s): K74.60 - Unspecified cirrhosis of liver Status: Chronic Assessment and Plan: Bilirubin around 7. Remains jaundiced as below. Dr. Medina/Shamika following (3) Jaundice: Code(s): R17 - Unspecified jaundice Status: Acute (4) Macrocytic anemia: Code(s): D53.9 - Nutritional anemia, unspecified Status: Chronic Assessment and Plan: H&H stable. (5) Alcohol abuse: Code(s): F10.10 - Alcohol abuse, uncomplicated Status: Chronic (6) Cholelithiasis: Code(s): K80.20 - Calculus of gallbladder without cholecystitis without obstruction Status: Chronic Assessment and Plan: Gallstones on imaging but no evidence of cholecystitis. No plans for cholecystectomy at this time. Cholecystectomy in cirrhotic patient is much more hazardous procedure. Would only recommend if clearly indicated and necessary. Subjective Subjective Date/Time Seen: 08/20/21 15:59 Post Op day: 4 ( Status post abscess drainage) Patient reports: no new complaints Interval history: patient states he is eating okay and having bowel movements. denies much pain. Review of Systems Review of Systems: All systems reviewed & are unremarkable except as noted in HPI and below Constitutional: Constitutional: Reports as per HPI, Reports no additional constitutional complaints, Denies chills, Reports fatigue, Denies fever(s), Denies headache(s) and Reports lethargy Eyes: Eyes: Reports no additional eye complaints and Denies change in vision ENT: Reports system reviewed and no additional complaints, except as documented and Denies headache(s) Respiratory: Respiratory: Reports no additional respiratory complaints, Denies cough and Denies dyspnea Gastrointestinal: Gastrointestinal: Reports as per HPI, Reports no additional gastrointestinal complaints, Denies abdominal pain, Denies melena, Reports bloating (bulge in LLQ), Denies hematochezia, Denies constipation, Denies GI cramping, Denies heartburn, Denies diarrhea, Reports loose stools, Denies nausea and Denies vomiting Musculoskeletal: Musculoskeletal: Denies deformity, Denies joint swelling, Denies numbness and Denies tingling Integumentary/Breasts: Skin/Breast: Reports jaundice Neurologic: Reports system reviewed and no additional complaints, except as documented, Denies Abnormal speech present, Denies confusion, Denies headache(s), Denies focal weakness, Denies numbness and Denies tingling Exam Const: General: comfortable, no acute distress, alert and awake; No confusion Nutritional Appearance: average body habitus Orientation/consciousness: patient oriented x3 and No confusion HENMT: Head: normocephalic and atraumatic Ears: hearing grossly normal bilaterally Mouth: No moist mucous membranes Eyes: General: appearance normal, both eyes and all related structures Sclera: scleral abnormality bilateral (scleral icteric) Pupils: Equal, round and reactive pupils present EOM: EOMs intact bilaterally Neck: Neck: full ROM and supple Resp: Effort & Inspection: able to speak in complete sentences and no res
[2021-08-20 16:00] VITALS: BP 110/57; PULSE 94; RESP 18; TEMP 36.9; O2SAT 97
[2021-08-20 16:18] LABS: Glucose Point of Care 198 mg/dl (65-105)
[2021-08-20 20:00] VITALS: BP 98/60; PULSE 104; RESP 17; TEMP 36.7; O2SAT 98
[2021-08-20 20:12] LABS: Glucose Point of Care 170 mg/dl (65-105)
[2021-08-21] VITALS (7 sets, daily range): BP systolic 99–131; BP diastolic 66–78; PULSE 86–101; RESP 17–22; TEMP 36.2–36.4; O2SAT 97–100
[2021-08-21] MEDS: chlordiazePOXIDE (*CRX) 25 MG CAPSULE PO ×2 (03:14→20:46)
[2021-08-21 05:28] LABS: Basophils Absolute Auto 0.1 K/mm3 (0.0-0.1); Basophils Percent Auto 0.6 % (0.2-1.2); Eosinophils Absolute Auto 0.1 K/mm3 (0-0.3); Eosinophils Percent Auto 0.9 % (0-4.4); Hematocrit 30.6 % (42.0-52.0); Hemoglobin 10.5 g/dL (14.0-18.0); Immature Granulocyte Absolute 0.14 K/mm3 (0.00-0.031); Immature Granulocyte Percent A 1.3 % (0-0.5); Lymphocytes Absolute Auto 1.76 K/mm3 (0.9-3.2); Lymphocytes Percent Auto 15.9 % (18.3-44.2); Mean Corpuscular HGB Conc 34.3 g/dl (32-36); Mean Corpuscular Hemoglobin 36.6 pg (26-34); Mean Corpuscular Volume 106.6 fl (80-100); Mean Platelet Volume 11.3 fl (7.4-10.4); Monocytes Absolute Auto 0.6 K/mm3 (0.1-0.6); Neutrophils Absolute Auto 8.5 K/mm3 (1.3-6.7); Neutrophils Percent Auto 76.3 % (45.5-73.1); Platelet Count Result 212 k/mm3 (150-375); Red Blood Count 2.87 M/mm3 (4.6-6.20); Red Cell Distribution Width 14.4 % (11.5-14.5); White Blood Count 11.1 K/mm3 (4.5-10.0)
[2021-08-21 05:42] LABS: Alanine Aminotransferase 138 U/L (4-50); Albumin Level 2.9 g/dL (3.5-5.1); Alkaline Phosphatase 331 U/L (38-126); Anion Gap 6 mmol/L (8-16); Aspartate Amino Transferase 209 U/L (17-59); Bilirubin,Total 8.8 mg/dL (0.2-1.3); Blood Urea Nitrogen 9 mg/dL (9-20); Calcium 6.9 mg/dL (8.4-10.2); Carbon Dioxide 28 mmol/L (22-30); Chloride 97 mmol/L (98-107); Estimated CRCL calculation 94 ml/min; Estimated Glomerular Filt Rate > 60; Glucose 160 mg/dL (65-110); Magnesium 1.2 mg/dL (1.6-2.3); Potassium 3.7 mmol/L (3.4-5.0); Sodium 131 mmol/L (137-145)
[2021-08-21 07:36] LABS: Glucose Point of Care 151 mg/dl (65-105)
[2021-08-21] MEDS: ENOXAPARIN 40 MG/0.4 ML SYRINGE SUB-Q (09:06)
[2021-08-21] MEDS: MAGNESIUM OXIDE 400 MG TABLET PO (09:07)
[2021-08-21] MEDS: MAGNESIUM SULF 2 GM/WATER 50ML 2 GM/50 ML BAG IVPB (09:07)
[2021-08-21] MEDS: THIAMINE HCL 100 MG TABLET PO (09:07)
[2021-08-21] MEDS: FOLIC ACID 1 MG TABLET PO (09:07)
[2021-08-21] MEDS: PANTOPRAZOLE 40 MG TABLET PO (09:07)
[2021-08-21 09:38] LABS: Ammonia < 9 umol/L (9-30)
--- NOTE | 2021-08-21 11:03 | PM.PNGS ---
Progress Note: A&P Assessment and Plan (1) Abdominal wall abscess: Code(s): L02.211 - Cutaneous abscess of abdominal wall Status: Acute Assessment and Plan: Continues to improve. WBC up slightly to 11K today, afebrile. Repeat CT scan ordered this morning, which showed the abscess has been adequately drained without any residual fluid collection. There is also mention of fistulous connections between the sigmoid colon, appendix, small bowel, and anterosuperior bladder wall. Cystogram on admission showed no evidence of bladder leak. Dr. Victor will review CT scan independently. Continue IV Zosyn. Abscess cx showed E coli, susceptible to Zosyn, and strep anginosus. Monitor LLQ drain, continue gauze dressing changes. (2) Cirrhosis: Qualifiers: Ascites presence: unspecified Hepatic cirrhosis type: alcoholic cirrhosis Qualified Code(s): K70.30 - Alcoholic cirrhosis of liver without ascites Code(s): K74.60 - Unspecified cirrhosis of liver Status: Chronic Assessment and Plan: Newly diagnosed with liver cirrhosis. Bilirubin 8.8 today. Hep panel negative. GI following. (3) Jaundice: Code(s): R17 - Unspecified jaundice Status: Acute (4) Macrocytic anemia: Code(s): D53.9 - Nutritional anemia, unspecified Status: Chronic (5) Alcohol abuse: Code(s): F10.10 - Alcohol abuse, uncomplicated Status: Chronic (6) Cholelithiasis: Code(s): K80.20 - Calculus of gallbladder without cholecystitis without obstruction Status: Chronic Additional Plan I have discussed the plan of care with Dr. Victor. Subjective Subjective Date/Time Seen: 08/21/21 10:03 Post Op day: 5 Patient reports: no new complaints, bowel movement (Today) and afebrile Interval history: Patient seen and examined today. He reports feeling well with no complaints of abdominal pain. He reports having a BM this morning. He denies any nausea or vomiting, but does report lack of appetite. Supplements have been ordered in addition to his diet. No other complaints at this time. Review of Systems Review of Systems: All systems reviewed & are unremarkable except as noted in HPI and below Constitutional: Constitutional: Reports as per HPI, Reports no additional constitutional complaints, Denies chills and Denies fever(s) Cardiovascular: Cardiovascular: Reports no additional cardiovascular complaints, Denies chest pain and Denies leg edema Respiratory: Respiratory: Reports no additional respiratory complaints, Denies cough and Denies dyspnea Gastrointestinal: Gastrointestinal: Reports as per HPI and Reports no additional gastrointestinal complaints Neurologic: Reports system reviewed and no additional complaints, except as documented, Denies Abnormal speech present and Denies focal weakness Exam Const: General: no acute distress and alert Orientation/consciousness: patient oriented x3 Eyes: Sclera: scleral abnormality bilateral (scleral icteric) Resp: Effort & Inspection: no respiratory distress Auscultation: clear to auscultation bilaterally Cardio: Rhythm: regular rhythm GI: Inspection: non-distended GI Palp: Yes Soft to palpation, Yes Tenderness to palpation present (GI) (LLQ, reportedly improved) and No Guarding due to palpation present (GI) Auscultation: normal bowel sounds Other: LLQ mushroom drain in place draining serosanguineous drainage, mod amount on dressing. Skin: General skin exam: jaundice Neuro: General: moves all extremities and no focal motor deficits Extrem: General: no calf tenderness and no edema Psych: Insight: Good insight present (Psych) Judgement: Good judgement present (Psych) Objective Data Vital Signs Vital Signs: Vital Signs - 24 hr 08/20/21 12:00 08/20/21 16:00 08/20/21 20:00 Temperature 99.1 F 98.4 F 98.1 F Pulse Rate 85 94 104 H Pulse Rate [Bilateral Pedal (Dorsalis Pedis) Palpation] Respiratory Rate 16 18 17 Blood Pressure 99
--- NOTE | 2021-08-21 11:12 | PM.IMPN ---
Progress Note: A&P Assessment and Plan (1) Sepsis: Qualifiers: Sepsis acute organ dysfunction status: unspecified Sepsis type: sepsis due to unspecified organism Qualified Code(s): A41.9 - Sepsis, unspecified organism Code(s): A41.9 - Sepsis, unspecified organism Status: Acute Assessment and Plan: RESOLVED Present on admission and supported by fever, leukocytosis with bandemia, and lactic acidosis in the setting of infection. Lactic acid level has improved with IV fluid rehydration. -08/16 Blood cultures with no growth so far -08/16: Abscess cultures with E coli. Streptococcus anginosus. E coli is pansensitive. currently on Zosyn start date 08/17/2021 May change to Augmentin for continue treatment. 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 Drain in place further management per surgery drain cavity without significant residual drainable fluid. Removal of drain per General surgery will await their recommendations (3) Electrolyte abnormality: Code(s): E87.8 - Other disorders of electrolyte and fluid balance, not elsewhere classified Status: Acute Assessment and Plan: potassium and magnesium replaced, -mild hyponatremia at with sodium levels of 132, continue to monitor Recheck labs and monitor Replace magnesium with magnesium sulfate 2 g today (4) Hyperglycemia: Code(s): R73.9 - Hyperglycemia, unspecified Status: Acute Assessment and Plan: Added sliding scale insulin and Accu-Cheks -hemoglobin A1c this admission is 5.8 Likely due to underlying infection (5) Hepatitis: Code(s): K75.9 - Inflammatory liver disease, unspecified Status: Acute Assessment and Plan: Etiology not entirely clear. May be related to sepsis, alcoholic hepatitis, or other. Possible cholecystitis on CT though that seems less likely by exam. -hepatitis panel is negative -continue to monitor (6) Cirrhosis: Qualifiers: Ascites presence: unspecified Hepatic cirrhosis type: alcoholic cirrhosis Qualified Code(s): K70.30 - Alcoholic cirrhosis of liver without ascites Code(s): K74.60 - Unspecified cirrhosis of liver Status: Chronic Assessment and Plan: Likely related to his ongoing alcohol abuse. Counseled on stopping alcohol use He will need to follow up with liver closely as an outpatient basis CT abdomen with minimal ascites Will need EGD to assess for versus Hepatitis profile is negative Ferritin is 964 Alpha fetoprotein ordered which is pending INR is 1.4, AST more than ALT, macrocytosis suggestive of alcoholic liver disease Ammonia level is normal Add lactulose p.r.n. (7) Macrocytic anemia: Code(s): D53.9 - Nutritional anemia, unspecified Status: Chronic Assessment and Plan: B12 folate normal iron studies with anemia of chronic disease -could be related to alcohol abuse (8) Tobacco abuse: Code(s): Z72.0 - Tobacco use Status: Acute Assessment and Plan: Discussed cessation of tobacco use, he is going to look into it. He declines the need for nicotine patch. (9) Alcohol abuse: Code(s): F10.10 - Alcohol abuse, uncomplicated Status: Chronic Assessment and Plan: Initiate CIWA protocol. Continue thiamine and folic acid. -patient on Librium, on Librium will continue to taper down -continue p.r.n. Ativan (10) Abnormal CT scan, gallbladder: Code(s): R93.2 - Abnormal findings on jose ramon
[2021-08-21 11:26] LABS: Glucose Point of Care 155 mg/dl (65-105)
--- NOTE | 2021-08-21 15:53 | WPDGIPROGNO ---
Progress Note: A&P Assessment and Plan (1) Abdominal wall abscess: Code(s): L02.211 - Cutaneous abscess of abdominal wall Status: Acute Assessment and Plan: s/p surgical drainage, on antibiotics- this is better and he has less pain. cystogram without leakage or fistula in bladder CT scan repeated, abscess better but possible network of fistulas in sigmoid, appendix, small bowel. Also drain in good position without residual abscess, noted distended GB and cirrhosis- surgery reviewed imaging and no obvious fistula that will need surgery and recommending to continue with antibiotics, agree that no clinical evidence of cholecystitis he probably will need colonoscopy but as outpatient (2) Cirrhosis, alcoholic: Code(s): K70.30 - Alcoholic cirrhosis of liver without ascites Status: Acute Assessment and Plan: new diagnosis, he is an alcoholic hepatitis panel negative jaundice probably exacerbated by infection and has been ~ 7-8 range nutritional support, thiamine and will need to stop drinking altogether if never had egd then at some point will need egd to assess if varices liver imaging every 6 months for HCC screening (3) Jaundice: Code(s): R17 - Unspecified jaundice Status: Acute Assessment and Plan: elevated but relatively stable (4) Macrocytic anemia: Code(s): D53.9 - Nutritional anemia, unspecified Status: Chronic Assessment and Plan: multifactorial from cirrhosis, etoh abuse, infection, etc Subjective Date/time seen: 08/21/21 15:53 Interval history: patient is doing well, resting. Review of Systems Review of Systems: All systems reviewed & are unremarkable except as noted in HPI and below Exam Const: General: comfortable and no acute distress; No confusion Orientation/consciousness: patient oriented x3 and No confusion Eyes: Other: icteric sclerae Neck: Neck: supple Resp: Auscultation: clear to auscultation bilaterally Cardio: Rate: regular rate GI: Inspection: non-distended and incision (dressing in pace) GI Palp: Yes Soft to palpation, Yes Tenderness to palpation present (GI) (Mild tenderness at drain site), No Guarding due to palpation present (GI), No Palpable mass present and No Rebound tenderness present Auscultation: normal bowel sounds Skin: General skin exam: no rashes or lesions noted and jaundice Neuro: General: patient oriented x3, no focal motor deficits and No confusion Speech: normal speech Extrem: General: no calf tenderness and no edema Psych: Affect: normal affect Insight: Good insight present (Psych) Judgement: Good judgement present (Psych) Objective Data Vital Signs Vital Signs: Vital Signs - 24 hr 08/20/21 16:00 08/20/21 20:00 08/21/21 00:00 Temperature 98.4 F 98.1 F 97.6 F Pulse Rate 94 104 H 98 Pulse Rate [Bilateral Pedal (Dorsalis Pedis) Palpation] Respiratory Rate 18 17 17 Blood Pressure 110/57 L 98/60 L 131/78 Pulse Oximetry 97 98 99 08/21/21 03:16 08/21/21 04:00 08/21/21 10:00 Temperature 97.5 F L 97.2 F L Pulse Rate 94 86 Pulse Rate [Bilateral Pedal (Dorsalis Pedis) Palpation] 94 Respiratory Rate 17 22 H Blood Pressure 99/71 L 115/74 Pulse Oximetry 97 100 08/21/21 12:20 Temperature 97.3 F L Pulse Rate 90 Pulse Rate [Bilateral Pedal (Dorsalis Pedis) Palpation] Respiratory Rate 20 Blood Pressure 110/71 Pulse Oximetry 98 Intake/Output Intake/Output: Intake & Output 08/18/21 08/19/21 08/20/21 08/21/21 23:59 23:59 23:59 23:59 Intake Total 2980 1160 1340 1300 Output Total 1150 7995 997 1968 Balance 1830 -390 540 300 Meds/Results Medications: Active Medications Generic Name Dose Route Start Last Admin Trade Name Freq PRN Reason Stop Dose Admin Acetaminophen 500 mg 08/16/21 19:04 Acetaminophen 500 Mg Tablet PO Q6H PRN Mild Pain (1-3) or Fever Hydrocodone Bitart/Acetaminophen 1 tab 08/16/21 19:04 08/17/21 13:37 Hydrocodone/Acetami
[2021-08-21 15:58] LABS: Glucose Point of Care 454 mg/dl (65-105)
[2021-08-21 16:07] LABS: Glucose Point of Care 236 mg/dl (65-105)
[2021-08-21] MEDS: INSULIN ASPART (*BKC) 100 UNITS/ML SUB-Q (16:19)
[2021-08-21 20:35] LABS: Glucose Point of Care 227 mg/dl (65-105)
[2021-08-22] VITALS (9 sets, daily range): BP systolic 108–138; BP diastolic 56–80; PULSE 78–95; RESP 14–21; TEMP 36.1–36.7; O2SAT 98–100
[2021-08-22 05:19] LABS: Basophils Absolute Auto 0.1 K/mm3 (0.0-0.1); Basophils Percent Auto 0.7 % (0.2-1.2); Eosinophils Absolute Auto 0.1 K/mm3 (0-0.3); Eosinophils Percent Auto 0.8 % (0-4.4); Hematocrit 26.9 % (42.0-52.0); Hemoglobin 9.1 g/dL (14.0-18.0); Immature Granulocyte Absolute 0.21 K/mm3 (0.00-0.031); Immature Granulocyte Percent A 2.1 % (0-0.5); Lymphocytes Absolute Auto 1.55 K/mm3 (0.9-3.2); Lymphocytes Percent Auto 15.7 % (18.3-44.2); Mean Corpuscular HGB Conc 33.8 g/dl (32-36); Mean Corpuscular Hemoglobin 37.1 pg (26-34); Mean Corpuscular Volume 109.8 fl (80-100); Mean Platelet Volume 11.2 fl (7.4-10.4); Monocytes Absolute Auto 0.5 K/mm3 (0.1-0.6); Monocytes Percent Auto 5.4 % (2.6-8.5); Neutrophils Absolute Auto 7.4 K/mm3 (1.3-6.7); Neutrophils Percent Auto 75.3 % (45.5-73.1); Platelet Count Result 171 k/mm3 (150-375); Red Blood Count 2.45 M/mm3 (4.6-6.20); Red Cell Distribution Width 14.7 % (11.5-14.5); White Blood Count 9.9 K/mm3 (4.5-10.0)
[2021-08-22 05:53] LABS: Alanine Aminotransferase 102 U/L (4-50); Albumin Level 2.6 g/dL (3.5-5.1); Alkaline Phosphatase 288 U/L (38-126); Anion Gap 7 mmol/L (8-16); Aspartate Amino Transferase 155 U/L (17-59); Bilirubin,Total 7.9 mg/dL (0.2-1.3); Blood Urea Nitrogen 7 mg/dL (9-20); Calcium 6.7 mg/dL (8.4-10.2); Carbon Dioxide 25 mmol/L (22-30); Chloride 101 mmol/L (98-107); Estimated CRCL calculation 106 ml/min; Estimated Glomerular Filt Rate > 60; Glucose 136 mg/dL (65-110); Magnesium 1.3 mg/dL (1.6-2.3); Potassium 3.9 mmol/L (3.4-5.0); Sodium 133 mmol/L (137-145)
[2021-08-22 07:30] LABS: Glucose Point of Care 129 mg/dl (65-105)
[2021-08-22] MEDS: MAGNESIUM SULF 4 GM/WATER100ML 4 GM/100 ML BAG IVPB (09:00)
[2021-08-22] MEDS: MAGNESIUM OXIDE 400 MG TABLET PO (10:09)
[2021-08-22] MEDS: THIAMINE HCL 100 MG TABLET PO (10:09)
[2021-08-22] MEDS: FOLIC ACID 1 MG TABLET PO (10:12)
[2021-08-22] MEDS: ENOXAPARIN 40 MG/0.4 ML SYRINGE SUB-Q (10:13)
[2021-08-22] MEDS: PANTOPRAZOLE 40 MG TABLET PO (10:14)
[2021-08-22] MEDS: LACTULOSE 20 GM/30 ML UDC PO (10:14)
[2021-08-22 11:18] LABS: Glucose Point of Care 186 mg/dl (65-105)
[2021-08-22] MEDS: chlordiazePOXIDE (*CRX) 25 MG CAPSULE PO ×2 (12:29→20:19)
--- NOTE | 2021-08-22 12:41 | PM.PNGS ---
Progress Note: A&P Assessment and Plan (1) Abdominal wall abscess: Code(s): L02.211 - Cutaneous abscess of abdominal wall Status: Acute Assessment and Plan: Abscess adequately drained. Continue to monitor the abdominal drain today. Dr. Victor plans to withdraw the drain up to the subcutaneous space tomorrow at the bedside and suture in place. Continue gauze dressing changes. Continue IV antibiotics. Encouraged increasing activity, continue PT/OT (2) Cirrhosis: Qualifiers: Ascites presence: unspecified Hepatic cirrhosis type: alcoholic cirrhosis Qualified Code(s): K70.30 - Alcoholic cirrhosis of liver without ascites Code(s): K74.60 - Unspecified cirrhosis of liver Status: Chronic Assessment and Plan: Newly diagnosed with liver cirrhosis with heavy alcohol use. Bilirubin 7.9 today. Hep panel negative. GI following. (3) Jaundice: Code(s): R17 - Unspecified jaundice Status: Acute (4) Macrocytic anemia: Code(s): D53.9 - Nutritional anemia, unspecified Status: Chronic (5) Alcohol abuse: Code(s): F10.10 - Alcohol abuse, uncomplicated Status: Chronic (6) Cholelithiasis: Code(s): K80.20 - Calculus of gallbladder without cholecystitis without obstruction Status: Chronic Additional Plan I have discussed the plan of care with Dr. Victor. Subjective Subjective Date/Time Seen: 08/22/21 12:41 Post Op day: 6 Patient reports: feels better, tolerating a regular diet, flatus, bowel movement and afebrile Interval history: Patient seen and examined. He reports feeling well today. No abdominal pain, nausea, vomiting, or bloating. Tolerating a regular diet but still with poor appetite. He is trying to drink the supplements. He does have complaints of dysuria and feeling like he is not emptying his bladder. Exam Const: General: no acute distress and awake Orientation/consciousness: patient oriented x3 GI: Inspection: non-distended GI Palp: Yes Soft to palpation, No Tenderness to palpation present (GI), No Guarding due to palpation present (GI) and No Rebound tenderness present Auscultation: normal bowel sounds Other: LLQ mushroom drain in place draining mostly serous drainage today slightly wells, drainage seems to be decreasing Skin: General skin exam: jaundice Neuro: General: moves all extremities and no focal motor deficits Extrem: General: no calf tenderness and no edema Psych: Insight: Good insight present (Psych) Judgement: Good judgement present (Psych) Objective Data Vital Signs Vital Signs: Vital Signs - 24 hr 08/21/21 18:10 08/21/21 20:00 08/22/21 00:00 Temperature 97.3 F L 97.4 F L 97.1 F L Pulse Rate 90 101 H 78 Pulse Rate [Bilateral Pedal (Dorsalis Pedis) Palpation] 94 94 Respiratory Rate 20 17 17 Blood Pressure 110/71 124/66 108/58 L Pulse Oximetry 98 98 99 08/22/21 04:00 08/22/21 08:00 08/22/21 10:00 Temperature 97.1 F L 96.9 F L Pulse Rate 87 94 Pulse Rate [Bilateral Pedal (Dorsalis Pedis) Palpation] 94 94 Respiratory Rate 17 14 Blood Pressure 112/71 112/71 110/56 L Pulse Oximetry 98 100 Intake/Output Intake/Output: Intake & Output 08/19/21 08/20/21 08/21/21 08/22/21 23:59 23:59 23:59 23:59 Intake Total 1160 1340 1950 910 Output Total 7823 670 7252 800 Balance -390 540 550 110 Meds/Results Medications: Active Medications Generic Name Dose Route Start Last Admin Trade Name Freq PRN Reason Stop Dose Admin Acetaminophen 500 mg 08/16/21 19:04 Acetaminophen 500 Mg Tablet PO Q6H PRN Mild Pain (1-3) or Fever Hydrocodone Bitart/Acetaminophen 1 tab 08/16/21 19:04 08/17/21 13:37 Hydrocodone/Acetaminophen (*Crx) 5-325 Mg Tablet PO 1 tab Q4H PRN Administration Pain Rated 4-6 Chlordiazepoxide HCl 25 mg 08/21/21 21:00 08/22/21 12:29 Chlordiazepoxide (*Crx) 25 Mg Capsule PO 25 mg Q12HR RYANN Administration Dextrose 12.5 gm 08/17/21 07:44 Dex
--- NOTE | 2021-08-22 14:03 | P.PNIM_ITS ---
Progress Note: A&P Assessment and Plan (1) Sepsis: Qualifiers: Sepsis acute organ dysfunction status: unspecified Sepsis type: sepsis due to unspecified organism Qualified Code(s): A41.9 - Sepsis, unspecified o rganism Code(s): A41.9 - Sepsis, unspecified organism Status: Acute Assessment and Plan: RESOLVED Present on admission and supported by fever, leukocytosis with bandemia, and lactic acidosis in the setting of infection. Lactic acid level has improved with IV fluid rehydration. -08/16 Blood cultures with no growth so far -08/16: Abscess cultures with E coli. Streptococcus anginosus. E coli is pansensitive. currently on Zosyn start date 08/17/2021 May change to Augmentin for continue treatment. 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 Drain in place further management per surgery drain cavity without significant residual drainable fluid. Removal of drain per General surgery will await their recommendations (3) Electrolyte abnormality: Code(s): E87.8 - Other disorders of electrolyte and fluid balance, not elsewhere classified Status: Acute Assessment and Plan: potassium and magnesium replaced, -mild hyponatremia at with sodium levels of 132, continue to monitor Recheck labs and monitor Replace magnesium with magnesium sulfate 2 g today (4) Hyperglycemia: Code(s): R73.9 - Hyperglycemia, unspecified Status: Acute Assessment and Plan: Added sliding scale insulin and Accu-Cheks -hemoglobin A1c this admission is 5.8 Likely due to underlying infection (5) Hepatitis: Code(s): K75.9 - Inflammatory liver disease, unspecified Status: Acute Assessment and Plan: Etiology not entirely clear. May be related to sepsis, alcoholic hepatitis, or other. Possible cholecystitis on CT though that seems less likely by exam. -hepatitis panel is negative -continue to monitor (6) Cirrhosis: Qualifiers: Ascites presence: unspecified Hepatic cirrhosis type: alcoholic cirrhosis Qualified Code(s): K70.30 - Alcoholic cirrhosis of liver without ascites Code(s): K74.60 - Unspecified cirrhosis of liver Status: Chronic Assessment and Plan: Likely related to his ongoing alcohol abuse. Counseled on stopping alcohol use He will need to follow up with liver closely as an outpatient basis CT abdomen with minimal ascites Will need EGD to assess for versus Hepatitis profile is negative Ferritin is 964 Alpha fetoprotein ordered which is pending INR is 1.4, AST more than ALT, macrocytosis suggestive of alcoholic liver disease Ammonia level is normal Add lactulose p.r.n. (7) Macrocytic anemia: Code(s): D53.9 - Nutritional anemia, unspecified Status: Chronic Assessment and Plan: B12 folate normal iron studies with anemia of chronic disease -could be related to alcohol abuse (8) Tobacco abuse: Code(s): Z72.0 - Tobacco use Status: Acute Assessment and Plan: Discussed cessation of tobacco use, he is going to look into
--- NOTE | 2021-08-22 15:20 | PC.NURSE ---
On 08/22/21 [employer] studentMartha charted in [facility]. I have reviewed their documentation and agree with the findings.
[2021-08-22 16:40] LABS: Glucose Point of Care 219 mg/dl (65-105)
[2021-08-22] MEDS: INSULIN ASPART (*BKC) 100 UNITS/ML SUB-Q (17:26)
--- NOTE | 2021-08-22 17:37 | WPDGIPROGNO ---
Progress Note: A&P Assessment and Plan (1) Abdominal wall abscess: Code(s): L02.211 - Cutaneous abscess of abdominal wall Status: Acute Assessment and Plan: s/p surgical drainage, on antibiotics- this is better, management by surgery team cystogram without leakage or fistula in bladder new CT scan showed abscess better but possible network of fistulas in sigmoid, appendix, small bowel. Also drain in good position without residual abscess, noted distended GB and cirrhosis. he probably will need colonoscopy but as outpatient (2) Cirrhosis, alcoholic: Code(s): K70.30 - Alcoholic cirrhosis of liver without ascites Status: Acute Assessment and Plan: new diagnosis due to excess alcohol use hepatitis panel negative jaundice probably exacerbated by infection and has been ~ 7-8 range nutritional support, thiamine and will need to stop drinking altogether egd as outpatient to assess if varices liver imaging every 6 months for HCC screening (3) Jaundice: Code(s): R17 - Unspecified jaundice Status: Acute Assessment and Plan: elevated but relatively stable (4) Macrocytic anemia: Code(s): D53.9 - Nutritional anemia, unspecified Status: Chronic Assessment and Plan: multifactorial from cirrhosis, etoh abuse, infection, etc (5) Diarrhea: Code(s): R19.7 - Diarrhea, unspecified Status: Acute Assessment and Plan: probably from antibiotics, will check for C diff Subjective Date/time seen: 08/22/21 17:37 Interval history: c/o diarrhea today Review of Systems Review of Systems: All systems reviewed & are unremarkable except as noted in HPI and below Exam Const: General: comfortable and no acute distress; No confusion Orientation/consciousness: patient oriented x3 and No confusion Eyes: Other: icteric sclerae Neck: Neck: supple Resp: Auscultation: clear to auscultation bilaterally Cardio: Rate: regular rate GI: Inspection: non-distended and incision (dressing in pace) GI Palp: Yes Soft to palpation, Yes Tenderness to palpation present (GI) (Mild tenderness at drain site), No Guarding due to palpation present (GI), No Palpable mass present and No Rebound tenderness present Auscultation: normal bowel sounds Skin: General skin exam: no rashes or lesions noted and jaundice Neuro: General: patient oriented x3, no focal motor deficits and No confusion Speech: normal speech Extrem: General: no calf tenderness and no edema Psych: Affect: normal affect Insight: Good insight present (Psych) Judgement: Good judgement present (Psych) Objective Data Vital Signs Vital Signs: Vital Signs - 24 hr 08/21/21 18:10 08/21/21 20:00 08/22/21 00:00 Temperature 97.3 F L 97.4 F L 97.1 F L Pulse Rate 90 101 H 78 Pulse Rate [Bilateral Pedal (Dorsalis Pedis) Palpation] 94 94 Respiratory Rate 20 17 17 Blood Pressure 110/71 124/66 108/58 L Pulse Oximetry 98 98 99 08/22/21 04:00 08/22/21 08:00 08/22/21 10:00 Temperature 97.1 F L 96.9 F L Pulse Rate 87 94 Pulse Rate [Bilateral Pedal (Dorsalis Pedis) Palpation] 94 94 Respiratory Rate 17 14 Blood Pressure 112/71 112/71 110/56 L Pulse Oximetry 98 100 08/22/21 12:00 08/22/21 14:00 08/22/21 16:00 Temperature 97.6 F 97.7 F Pulse Rate 95 92 Pulse Rate [Bilateral Pedal (Dorsalis Pedis) Palpation] 94 Respiratory Rate 16 16 Blood Pressure 110/56 L 138/80 138/77 Pulse Oximetry 100 99 Intake/Output Intake/Output: Intake & Output 08/19/21 08/20/21 08/21/21 08/22/21 23:59 23:59 23:59 23:59 Intake Total 1160 1340 1950 1130 Output Total 0763 537 0658 800 Balance -390 540 550 330 Meds/Results Medications: Active Medications Generic Name Dose Route Start Last Admin Trade Name Sheeba PRN Reason Stop Dose Admin Acetaminophen 500 mg 08/16/21 19:04 Acetaminophen 500 Mg Tablet PO Q6H PRN Mild Pain (1-3) or Fever Hydrocodone Bitart/Acetaminophen 1 tab
[2021-08-22 20:15] LABS: Glucose Point of Care 161 mg/dl (65-105)
[2021-08-23] VITALS (8 sets, daily range): BP systolic 102–137; BP diastolic 50–74; PULSE 86–94; RESP 17–21; TEMP 35.9–36.6; O2SAT 97–100
[2021-08-23 05:59] LABS: Hematocrit 25.3 % (42.0-52.0); Hemoglobin 8.8 g/dL (14.0-18.0); Mean Corpuscular HGB Conc 34.8 g/dl (32-36); Mean Corpuscular Hemoglobin 37.1 pg (26-34); Mean Corpuscular Volume 106.8 fl (80-100); Mean Platelet Volume 11.2 fl (7.4-10.4); Platelet Count Result 181 k/mm3 (150-375); Red Blood Count 2.37 M/mm3 (4.6-6.20); Red Cell Distribution Width 14.8 % (11.5-14.5); White Blood Count 11.6 K/mm3 (4.5-10.0)
[2021-08-23 06:14] LABS: Alanine Aminotransferase 91 U/L (4-50); Albumin Level 2.6 g/dL (3.5-5.1); Alkaline Phosphatase 328 U/L (38-126); Anion Gap 8 mmol/L (8-16); Aspartate Amino Transferase 129 U/L (17-59); Bilirubin,Total 8.1 mg/dL (0.2-1.3); Blood Urea Nitrogen 6 mg/dL (9-20); Calcium 7.3 mg/dL (8.4-10.2); Carbon Dioxide 23 mmol/L (22-30); Chloride 101 mmol/L (98-107); Estimated CRCL calculation 122 ml/min; Estimated Glomerular Filt Rate > 60; Glucose 153 mg/dL (65-110); Magnesium 1.4 mg/dL (1.6-2.3); Potassium 3.9 mmol/L (3.4-5.0); Sodium 132 mmol/L (137-145)
--- NOTE | 2021-08-23 07:29 | WPDGIPROGNO ---
Progress Note: A&P Assessment and Plan (1) Abdominal wall abscess: Code(s): L02.211 - Cutaneous abscess of abdominal wall Status: Acute Assessment and Plan: s/p surgical drainage, on antibiotics- this is better, management by surgery team cystogram without leakage or fistula in bladder new CT scan showed abscess better but possible network of fistulas in sigmoid, appendix, small bowel. Also drain in good position without residual abscess, noted distended GB and cirrhosis. he will need colonoscopy at some point (2) Cirrhosis, alcoholic: Code(s): K70.30 - Alcoholic cirrhosis of liver without ascites Status: Acute Assessment and Plan: new diagnosis due to excess alcohol use hepatitis panel negative jaundice probably exacerbated by infection and has been ~ 7-8 range nutritional support, thiamine and will need to stop drinking altogether egd as outpatient to assess if varices liver imaging every 6 months for HCC screening unfortunately liver studies and bilirubin are not improving. I emphasized to him the importance of stay away from alcohol. I will schedule him for EGD tomorrow for the varices (3) Jaundice: Code(s): R17 - Unspecified jaundice Status: Acute Assessment and Plan: elevated but relatively stable (4) Macrocytic anemia: Code(s): D53.9 - Nutritional anemia, unspecified Status: Chronic Assessment and Plan: multifactorial from cirrhosis, etoh abuse, infection, etc. B12 and folic acid levels are normal (5) Diarrhea: Code(s): R19.7 - Diarrhea, unspecified Status: Acute Assessment and Plan: probably from antibiotics, will check for C diff Subjective Date/time seen: 08/23/21 07:29 he tells me he feels a little better every day. The plan is to have his drain removed at bedside today. I discussed with him his recent illness. He states that he thinks he began to feel pain about a month ago. Possibly he has something like diverticulitis that rupture at that time if this is indeed an abscess that started in the gut. His hepatic function also is unfortunately not improving, bilirubin increasing. I told that we need to do an EGD to rule out varices I will do that tomorrow. Review of Systems Review of Systems: All systems reviewed & are unremarkable except as noted in HPI and below Exam Const: General: alert Orientation/consciousness: patient oriented x3 Resp: Auscultation: clear to auscultation bilaterally Cardio: Rhythm: regular rhythm GI: Inspection: incision (Dressing on lower abdomen) GI Palp: Yes Soft to palpation and No Tenderness to palpation present (GI) Auscultation: normal bowel sounds Neuro: General: patient oriented x3 Objective Data Vital Signs Vital Signs: Vital Signs - 24 hr 08/22/21 08:00 08/22/21 10:00 08/22/21 12:00 Temperature 36.1 C L Pulse Rate 94 Pulse Rate [Bilateral Pedal (Dorsalis Pedis) Palpation] 94 94 Respiratory Rate 14 Blood Pressure 112/71 110/56 L 110/56 L Pulse Oximetry 100 08/22/21 14:00 08/22/21 16:00 08/22/21 20:00 Temperature 36.4 C 36.5 C Pulse Rate 95 92 87 Pulse Rate [Bilateral Pedal (Dorsalis Pedis) Palpation] 94 Respiratory Rate 16 16 21 H Blood Pressure 138/80 138/77 127/66 Pulse Oximetry 100 99 100 08/22/21 20:05 08/23/21 00:00 08/23/21 03:33 Temperature 36.7 C 35.9 C L Pulse Rate 87 92 Pulse Rate [Bilateral Pedal (Dorsalis Pedis) Palpation] 94 94 Respiratory Rate 21 H 21 H Blood Pressure 124/66 117/67 117/67 Pulse Oximetry 100 100 08/23/21 04:00 Temperature 36.4 C Pulse Rate 89 Pulse Rate [Bilateral Pedal (Dorsalis Pedis) Palpation] Respiratory Rate 18 Blood Pressure 108/65 Pulse Oximetry 97 Intake/Output Intake/Output: Intake & Output 08/20/21 08/21/21 08/22/21 08/23/21 23:59 23:59 23:59 23:59 Intake Total 1340 1950 1870 700 Output Total 800 1400 970 500 Balance 540 550 900 200 Meds/Results Medications: Ac
[2021-08-23 07:36] LABS: Glucose Point of Care 146 mg/dl (65-105)
[2021-08-23] MEDS: MAGNESIUM SULFATE 3GM/D5W100ML 3 GM/100 ML BAG IVPB (08:40)
[2021-08-23] MEDS: ENOXAPARIN 40 MG/0.4 ML SYRINGE SUB-Q (08:42)
[2021-08-23] MEDS: MAGNESIUM OXIDE 400 MG TABLET PO (08:43)
[2021-08-23] MEDS: FOLIC ACID 1 MG TABLET PO (08:44)
[2021-08-23] MEDS: PANTOPRAZOLE 40 MG TABLET PO (08:44)
[2021-08-23] MEDS: THIAMINE HCL 100 MG TABLET PO (08:44)
[2021-08-23] MEDS: chlordiazePOXIDE (*CRX) 25 MG CAPSULE PO ×2 (08:47→20:05)
[2021-08-23 11:37] LABS: Glucose Point of Care 156 mg/dl (65-105)
[2021-08-23] MEDS: LIDO 1%/EPINEPHRINE 1:100,000 20 ML VIAL INFILTRATE (13:30)
--- NOTE | 2021-08-23 14:49 | PM.PNGS ---
Progress Note: A&P Assessment and Plan (1) Abdominal wall abscess: Code(s): L02.211 - Cutaneous abscess of abdominal wall Status: Acute Assessment and Plan: Removed about half of the mushroom catheter draining the abscess today. Remaining catheter sutured in place at bedside. Continue dressing changes and hopefully remove the rest of the catheter in 4-7 days. This can be done as an outpatient if patient ready to go home otherwise. (2) Jaundice: Code(s): R17 - Unspecified jaundice Status: Acute (3) Cirrhosis, alcoholic: Code(s): K70.30 - Alcoholic cirrhosis of liver without ascites Status: Chronic Subjective Subjective Date/Time Seen: 08/23/21 14:49 Patient reports: no new complaints and afebrile Review of Systems Review of Systems: All systems reviewed & are unremarkable except as noted in HPI and below (HPI and those items note below) Constitutional: Constitutional: Denies chills, Denies fever(s) and Reports poor appetite Gastrointestinal: Gastrointestinal: Reports bloating (Appetite has been poor), Denies nausea and Denies vomiting Genitourinary: Genitourinary: Reports dysuria and Reports urinary hesitancy Exam Const: General: cooperative, comfortable, no acute distress, alert, awake and lethargic Nutritional Appearance: overweight GI: Inspection: non-distended, incision (Drain in place. Pulled drain back about 5 in and re-sutured.) and other (Excess drain cut off and discarded. End of drain in subcutaneous now) GI Palp: Yes Soft to palpation, No Tenderness to palpation present (GI) and No Guarding due to palpation present (GI) Auscultation: normal bowel sounds Skin: General skin exam: jaundice Objective Data Vital Signs Vital Signs: Vital Signs - 24 hr 08/22/21 16:00 08/22/21 20:00 08/22/21 20:05 Temperature 36.5 C 36.7 C Pulse Rate 92 87 87 Pulse Rate [Bilateral Pedal (Dorsalis Pedis) Palpation] 94 Respiratory Rate 16 21 H 21 H Blood Pressure 138/77 127/66 124/66 Pulse Oximetry 99 100 100 08/23/21 00:00 08/23/21 03:33 08/23/21 04:00 Temperature 35.9 C L 36.4 C Pulse Rate 92 89 Pulse Rate [Bilateral Pedal (Dorsalis Pedis) Palpation] 94 94 Respiratory Rate 21 H 18 Blood Pressure 117/67 117/67 108/65 Pulse Oximetry 100 97 08/23/21 08:00 08/23/21 12:00 Temperature 35.9 C L Pulse Rate 89 Pulse Rate [Bilateral Pedal (Dorsalis Pedis) Palpation] 94 94 Respiratory Rate 17 Blood Pressure 137/74 137/74 Pulse Oximetry 99 Intake/Output Intake/Output: Intake & Output 08/20/21 08/21/21 08/22/21 08/23/21 23:59 23:59 23:59 23:59 Intake Total 1340 1950 1870 970 Output Total 800 1400 970 500 Balance 540 550 900 470 Meds/Results Medications: Active Medications Generic Name Dose Route Start Last Admin Trade Name Freq PRN Reason Stop Dose Admin Acetaminophen 500 mg 08/16/21 19:04 Acetaminophen 500 Mg Tablet PO Q6H PRN Mild Pain (1-3) or Fever Hydrocodone Bitart/Acetaminophen 1 tab 08/16/21 19:04 08/17/21 13:37 Hydrocodone/Acetaminophen (*Crx) 5-325 Mg Tablet PO 1 tab Q4H PRN Administration Pain Rated 4-6 Chlordiazepoxide HCl 25 mg 08/21/21 21:00 08/23/21 08:47 Chlordiazepoxide (*Crx) 25 Mg Capsule PO 25 mg Q12HR RYANN Administration Dextrose 12.5 gm 08/17/21 07:44 Dextrose 50% 25 Gm/50 Ml Syringe IV PUSH PRN PRN Hypoglycemia Protocol Enoxaparin Sodium 40 mg 08/17/21 09:00 08/23/21 08:42 Enoxaparin 40 Mg/0.4 Ml Syringe SUB-Q 40 mg DAILY RYANN Administration Folic Acid 1 mg 08/17/21 09:00 08/23/21 08:44 Folic Acid 1 Mg Tablet PO 1 mg DAILY RYANN Administration Glucagon 1 mg 08/17/21 07:44 Glucagon For Inj 1 Mg Vial IM PRN PRN Hypoglycemia Protocol Glucose 15 gm 08/17/21 07:44 Glucose Oral Gel 15 Gm Of Glucse In 37.5 Gm Tube PO PRN PRN Hypoglycemia Protocol Dextrose 1,000 mls @ 100 mls/hr 08/17/21 07:
[2021-08-23 17:45] LABS: Glucose Point of Care 181 mg/dl (65-105)
[2021-08-23 22:07] LABS: Glucose Point of Care 194 mg/dl (65-105)
[2021-08-24] VITALS (9 sets, daily range): BP systolic 85–143; BP diastolic 46–88; PULSE 64–94; RESP 14–21; TEMP 36.1–36.6; O2SAT 98–100; BMI 28.7
[2021-08-24 05:52] LABS: Mean Corpuscular HGB Conc 33.3 g/dl (32-36); Mean Corpuscular Volume 111.1 fl (80-100); Mean Platelet Volume 11.1 fl (7.4-10.4); Platelet Count Result 183 k/mm3 (150-375); Red Blood Count 2.43 M/mm3 (4.6-6.20); Red Cell Distribution Width 14.9 % (11.5-14.5); White Blood Count 10.4 K/mm3 (4.5-10.0)
[2021-08-24 06:10] LABS: Alanine Aminotransferase 78 U/L (4-50); Albumin Level 2.6 g/dL (3.5-5.1); Alkaline Phosphatase 309 U/L (38-126); Anion Gap 6 mmol/L (8-16); Aspartate Amino Transferase 110 U/L (17-59); Bilirubin,Total 7.3 mg/dL (0.2-1.3); Blood Urea Nitrogen 6 mg/dL (9-20); Calcium 7.6 mg/dL (8.4-10.2); Carbon Dioxide 25 mmol/L (22-30); Chloride 102 mmol/L (98-107); Estimated CRCL calculation 106 ml/min; Estimated Glomerular Filt Rate > 60; Glucose 148 mg/dL (65-110); Magnesium 1.4 mg/dL (1.6-2.3); Potassium 3.8 mmol/L (3.4-5.0); Sodium 133 mmol/L (137-145)
[2021-08-24 07:38] LABS: Glucose Point of Care 160 mg/dl (65-105)
[2021-08-24] MEDS: MAGNESIUM SULFATE 3GM/D5W100ML 3 GM/100 ML BAG IVPB (10:21)
[2021-08-24 11:21] LABS: Glucose Point of Care 168 mg/dl (65-105)
[2021-08-24 12:18] LABS: Glucose Point of Care 140 mg/dl (65-105)
[2021-08-24] MEDS: LACTATED RINGERS 1,000 ML 150 ML IV CONT (12:18)
--- NOTE | 2021-08-24 12:21 | WPDANESEPPF ---
Anes - Initial Pre Proc Eval Procedure: Operation Date: 08/24/21 12:30 Proposed Procedures p Esophagogastroduodenoscopy - Spike Medina MD Date/Time: 08/24/21 12:21 Surgeon: Gokul Saavedra MD Pre Op Diagnosis: sepsis,acute cholecystitis,intra-abdominal/abdomin Patient Data Age: 60 Gender: M Height: 1.83 m Weight: 96.1 kg Last Vital Signs Temp 36.3 C L 08/24/21 08:08 Pulse 78 08/24/21 08:08 Resp 14 08/24/21 08:08 BP 109/68 08/24/21 08:08 Pulse Ox 100 08/24/21 08:08 Allergies Allergy/AdvReac Type Severity Reaction Status Date / Time No Known Allergies Allergy Verified 08/24/21 12:08 Home Medications Medication Instructions Recorded Confirmed Type No Home Medications 08/16/21 08/24/21 History Laboratory Tests 08/23/21 08/23/21 08/23/21 05:50 16:45 20:03 WBC RBC Hgb Hct MCV MCH MCHC RDW Plt Count MPV Sodium Potassium Chloride Carbon Dioxide Anion Gap BUN Creatinine Estim Creat Clear Calc Estimated GFR Glucose POC Capillary Glucose 181 mg/dl H mg/dl 194 mg/dl H mg/dl (65-105) (65-105) Calcium Magnesium Total Bilirubin AST ALT Alkaline Phosphatase Total Protein Albumin C. difficile (PCR) Pending 08/24/21 08/24/21 08/24/21 05:47 05:47 07:31 WBC 10.4 K/mm3 H K/mm3 (4.5-10.0) RBC 2.43 M/mm3 L M/mm3 (4.6-6.20) Hgb 9.0 g/dL L g/dL (14.0-18.0) Hct 27.0 % L % (42.0-52.0) MCV 111.1 fl H fl (80-100) MCH 37.0 pg H pg (26-34) MCHC 33.3 g/dl g/dl (32-36) RDW 14.9 % H % (11.5-14.5) Plt Count 183 k/mm3 k/mm3 (150-375) MPV 11.1 fl H fl (7.4-10.4) Sodium 133 mmol/L L mmol/L (137-145) Potassium 3.8 mmol/L mmol/L (3.4-5.0) Chloride 102 mmol/L mmol/L (98-107) Carbon Dioxide 25 mmol/L mmol/L (22-30) Anion Gap 6 mmol/L L mmol/L (8-16) BUN 6 mg/dL L mg/dL (9-20) Creatinine 0.70 mg/dL mg/dL (0.7-1.3) Estim Creat Clear Calc 106 ml/min ml/min Estimated GFR > 60 (59 - ) Glucose 148 mg/dL H mg/dL (65-110) POC Capillary Glucose 160 mg/dl H mg/dl (65-105) Calcium 7.6 mg/dL L mg/dL (8.4-10.2) Magnesium 1.4 mg/dL L mg/dL (1.6-2.3) Total Bilirubin 7.3 mg/dL H mg/dL (0.2-1.3) AST 110 U/L H U/L (17-59) ALT 78 U/L H U/L (4-50) Alkaline Phosphatase 309 U/L H U/L (38-126) Total Protein 6.0 g/dL L g/dL (6.3-8.2) Albumin 2.6 g/dL L g/dL (3.5-5.1) C. difficile (PCR) 08/24/21 08/24/21 11:11 12:15 WBC RBC Hgb Hct MCV MCH MCHC RDW Plt Count MPV Sodium Potassium Chloride Carbon Dioxide Anion Gap BUN Creatinine Estim Creat Clear Calc Estimated GFR Glucose POC Capillary Glucose 168 mg/dl H mg/dl 140 mg/dl H mg/dl (65-105) (65-105) Calcium Magnesium Total Bilirubin AST ALT Alkaline Phosphatase Total Protein Albumin C. difficile (PCR) Patient hx anesthesia problems: none Family hx anesthesia problems: none Results Review: All pre-operative results and documents have been reviewed as part of the pre-operative evaluation. [facility] Past Medical History Medical History (Updated 08/23/21 @ 15:46 by Luis Alberto
[2021-08-24] MEDS: POTASSIUM CHLORIDE 20 MEQ TABLET 40 MEQ PO (13:41)
[2021-08-24] MEDS: PANTOPRAZOLE 40 MG TABLET PO (13:42)
[2021-08-24] MEDS: chlordiazePOXIDE (*CRX) 25 MG CAPSULE PO ×2 (13:42→21:38)
[2021-08-24] MEDS: MAGNESIUM OXIDE 400 MG TABLET PO (13:42)
[2021-08-24] MEDS: THIAMINE HCL 100 MG TABLET PO (13:42)
[2021-08-24] MEDS: ENOXAPARIN 40 MG/0.4 ML SYRINGE SUB-Q (13:42)
[2021-08-24] MEDS: FOLIC ACID 1 MG TABLET PO (13:43)
--- NOTE | 2021-08-24 14:30 | PC.NURSE ---
On 08/24/21, the student, [Pablo Dunn], provided care and completed [facility] documentation on this patient. I have reviewed the student's documentation and agree with the findings.
[2021-08-24 17:22] LABS: Glucose Point of Care 133 mg/dl (65-105)
[2021-08-24 21:43] LABS: Glucose Point of Care 171 mg/dl (65-105)
[2021-08-25] VITALS: BP 142/69; PULSE 92; RESP 100; TEMP 36.1; O2SAT 100
[2021-08-25 04:00] VITALS: BP 127/82; PULSE 82; RESP 21; TEMP 36.3; O2SAT 100
[2021-08-25 04:41] LABS: Hematocrit 30.9 % (42.0-52.0); Hemoglobin 10.5 g/dL (14.0-18.0); Mean Corpuscular Hemoglobin 37.5 pg (26-34); Mean Corpuscular Volume 110.4 fl (80-100); Mean Platelet Volume 11.2 fl (7.4-10.4); Platelet Count Result 239 k/mm3 (150-375); Red Cell Distribution Width 15.5 % (11.5-14.5); White Blood Count 13.7 K/mm3 (4.5-10.0)
[2021-08-25 04:54] LABS: Alanine Aminotransferase 82 U/L (4-50); Albumin Level 3.1 g/dL (3.5-5.1); Alkaline Phosphatase 368 U/L (38-126); Anion Gap 5 mmol/L (8-16); Aspartate Amino Transferase 117 U/L (17-59); Bilirubin,Total 7.2 mg/dL (0.2-1.3); Blood Urea Nitrogen 6 mg/dL (9-20); Calcium 8.1 mg/dL (8.4-10.2); Carbon Dioxide 25 mmol/L (22-30); Chloride 102 mmol/L (98-107); Estimated CRCL calculation 106 ml/min; Estimated Glomerular Filt Rate > 60; Glucose 143 mg/dL (65-110); Magnesium 1.5 mg/dL (1.6-2.3); Potassium 4.2 mmol/L (3.4-5.0); Sodium 132 mmol/L (137-145)
[2021-08-25 07:46] LABS: Glucose Point of Care 136 mg/dl (65-105)
[2021-08-25] MEDS: FOLIC ACID 1 MG TABLET PO (08:25)
[2021-08-25] MEDS: THIAMINE HCL 100 MG TABLET PO (08:25)
[2021-08-25] MEDS: PANTOPRAZOLE 40 MG TABLET PO (08:25)
[2021-08-25] MEDS: MAGNESIUM OXIDE 400 MG TABLET PO (08:25)
[2021-08-25] MEDS: ENOXAPARIN 40 MG/0.4 ML SYRINGE SUB-Q (08:25)
[2021-08-25] MEDS: chlordiazePOXIDE (*CRX) 25 MG CAPSULE PO ×2 (08:25→20:03)
[2021-08-25 09:30] VITALS: BP 110/72; PULSE 86; RESP 16; TEMP 36.1; O2SAT 99
[2021-08-25] MEDS: MAGNESIUM SULF 2 GM/WATER 50ML 2 GM/50 ML BAG IVPB (10:30)
--- NOTE | 2021-08-25 11:11 | PCNFU ---
Nutrition Follow-Up Complete: Altered GI function as related to diverticular abscess as evidenced by NPO Goal: Meet estimated nutritional needs Patient is progressing towards goal. We will continue current goal. Pt current nutrition is Regular with Ensure compact BID. Last recorded weight is 95.5 kg, up from 94.3 kg on admit. Bowel Motility:+BM reported 3/4 Labs Reviewed:Mg 1.5, BUN 6, Glu 143, Alb 3.1, Na 132, Hct 30.9,Hgb 10.5 Meds Noted:Thiamine, Folic Acid, Librium, Lovenox, Mag-ox, Protonix, Zosyn Skin:WNL Additional Notes: Nutrition follow up. Patient had EGD noting candidiasis esophagitis. Diet orders has advanced to a regular diet with ensure compact BID providing an additional 220 kcals and 9 gms protein. Oral Intake at breakfast 50% of meal. Agree with diet orders. Monitoring: will monitor every 5 days.
[2021-08-25 11:29] LABS: Glucose Point of Care 154 mg/dl (65-105)
--- NOTE | 2021-08-25 11:45 | PM.PNGS ---
Progress Note: A&P Assessment and Plan (1) Abdominal wall abscess: Code(s): L02.211 - Cutaneous abscess of abdominal wall Status: Acute Assessment and Plan: Draining mushroom catheter was backed out 2 days ago and is only in the subcutaneous now. Plan to leave this in place for several more days and then removed completely. Will be in about 5 more days. This can be managed as an outpatient if patient is ready to be discharged. He will need outpatient colonoscopy in 3-4 weeks assuming no recurrent infections or abscesses. (2) Cirrhosis, alcoholic: Code(s): K70.30 - Alcoholic cirrhosis of liver without ascites Status: Chronic Assessment and Plan: Total bilirubin down to 7.1 today. Patient would be high risk for any intra-abdominal surgery. (3) Jaundice: Code(s): R17 - Unspecified jaundice Status: Acute Assessment and Plan: See above. Jaundice slightly better. (4) Cholelithiasis: Code(s): K80.20 - Calculus of gallbladder without cholecystitis without obstruction Status: Chronic Assessment and Plan: Has gallstones but no evidence of cholecystitis. No plans for cholecystectomy. Cholecystectomy would be quite high risk in this patient with cirrhosis and elevated liver enzymes jaundice. (5) Catherine esophagitis: Code(s): B37.81 - Candidal esophagitis Status: Acute Assessment and Plan: Suggested on EGD yesterday. Biopsy reports are pending. Perhaps we are waiting for the biopsies. Consider starting oral Diflucan. Subjective Subjective Date/Time Seen: 08/25/21 11:45 Patient reports: feels better, pain is less, tolerating a regular diet, bowel movement and other (Only complaint is dribbling urine and occasional incontinence of urine) Interval history: Nursing reports that when patient was sleeping yesterday he was incontinent of a large amount of urine. He has had some dribbling urinary incontinence as well. No complaints of abdominal pain or complaints regarding his drain. Review of Systems Review of Systems: All systems reviewed & are unremarkable except as noted in HPI and below (HPI and those items below) Constitutional: Constitutional: Denies chills, Denies fever(s), Denies headache(s), Denies night sweats and Denies poor appetite Gastrointestinal: Gastrointestinal: Denies abdominal pain, Denies constipation, Denies GI cramping, Denies nausea and Denies vomiting Genitourinary: Genitourinary: Reports urinary incontinence Exam GI: Inspection: non-distended and incision (Drain in place with minimal drainage) GI Palp: Yes Soft to palpation, No Tenderness to palpation present (GI), No Hernia present and No Palpable mass present Skin: General skin exam: jaundice (Less jaundiced than yesterday or the day before) Objective Data Vital Signs Vital Signs: Vital Signs - 24 hr 08/24/21 12:22 08/24/21 12:51 08/24/21 13:01 Temperature 36.1 C L Pulse Rate 85 82 83 Pulse Rate [Bilateral Pedal (Dorsalis Pedis) Palpation] Respiratory Rate 16 20 20 Blood Pressure 143/88 H 85/46 L 103/56 L Pulse Oximetry 100 98 98 08/24/21 13:11 08/24/21 16:00 08/24/21 20:00 Temperature 36.6 C Pulse Rate 80 81 Pulse Rate [Bilateral Pedal (Dorsalis Pedis) Palpation] 94 Respiratory Rate 18 21 H Blood Pressure 102/48 L 115/62 Pulse Oximetry 98 100 08/25/21 00:00 08/25/21 04:00 08/25/21 09:30 Temperature 36.1 C L 36.3 C L 36.1 C L Pulse Rate 92 82 86 Pulse Rate [Bilateral Pedal (Dorsalis Pedis) Palpation] Respiratory Rate 100 H 21 H 16 Blood Pressure 142/69 H 127/82 110/72 Pulse Oximetry 100 100 99 Intake/Output Intake/Output: Intake & Output 08/22/21 08/23/21 08/24/21 08/25/21 23:59 23:59 23:59 23:59 Intake Total 1870 2070 700 750 Output Total 970 1025 950 600 Balance 900 1045 -250 150 Meds/Results Medications: Active Medications Generic Name Dose Route Start Last Admin Trade Name Freq PRN Reason Stop Dos
[2021-08-25 13:18] VITALS: BP 129/74; PULSE 89; RESP 18; TEMP 36.6; O2SAT 100
--- NOTE | 2021-08-25 13:20 | WPDANESPN ---
Anes - Prog Note Post-Op Date/Time: 08/25/21 13:20 Cardiovascular status: normal and other (management per ICU team) Respiratory status: normal Airway patency: baseline Mental status: baseline Post-Op hydration status: normal and other (management per ICU team) Vital Signs: Last Vital Signs Temp 36.6 C 08/25/21 13:18 Pulse 89 08/25/21 13:18 Resp 18 08/25/21 13:18 BP 129/74 08/25/21 13:18 Pulse Ox 100 08/25/21 13:18 Pain Score (VAS): 0 I/O: Intake & Output 08/24/21 08/25/21 08/25/21 23:59 07:59 15:59 Intake Total 300 450 300 Output Total 350 600 Balance -50 -150 300 Laboratory Tests 08/25/21 04:33 08/25/21 04:33 08/23/21 08/24/21 08/24/21 05:50 17:19 21:32 WBC RBC Hgb Hct MCV MCH MCHC RDW Plt Count MPV Sodium Potassium Chloride Carbon Dioxide Anion Gap BUN Creatinine Estim Creat Clear Calc Estimated GFR Glucose POC Capillary Glucose 133 H 171 H Calcium Magnesium Total Bilirubin AST ALT Alkaline Phosphatase Total Protein Albumin C. difficile (PCR) Cancelled 08/25/21 08/25/21 08/25/21 04:33 04:33 07:38 WBC 13.7 H RBC 2.80 L Hgb 10.5 L Hct 30.9 L MCV 110.4 H MCH 37.5 H MCHC 34.0 RDW 15.5 H Plt Count 239 MPV 11.2 H Sodium 132 L Potassium 4.2 Chloride 102 Carbon Dioxide 25 Anion Gap 5 L BUN 6 L Creatinine 0.70 Estim Creat Clear Calc 106 Estimated GFR > 60 Glucose 143 H POC Capillary Glucose 136 H Calcium 8.1 L Magnesium 1.5 L Total Bilirubin 7.2 H AST 117 H ALT 82 H Alkaline Phosphatase 368 H Total Protein 8.0 Albumin 3.1 L C. difficile (PCR) 08/25/21 11:19 WBC RBC Hgb Hct MCV MCH MCHC RDW Plt Count MPV Sodium Potassium Chloride Carbon Dioxide Anion Gap BUN Creatinine Estim Creat Clear Calc Estimated GFR Glucose POC Capillary Glucose 154 H Calcium Magnesium Total Bilirubin AST ALT Alkaline Phosphatase Total Protein Albumin C. difficile (PCR) Post-procedural complaints: none Patient Feedback: Patient satisfied with anesthetic care.
[2021-08-25] MEDS: FLUCONAZOLE 100 MG TABLET PO (13:25)
--- NOTE | 2021-08-25 13:47 | WPDGIPROGNO ---
Progress Note: A&P Assessment and Plan (1) Abdominal wall abscess: Code(s): L02.211 - Cutaneous abscess of abdominal wall Status: Acute Assessment and Plan: s/p surgical drainage, on antibiotics- this is better, management by surgery team cystogram without leakage or fistula in bladder new CT scan showed abscess better but possible network of fistulas in sigmoid, appendix, small bowel. Also drain in good position without residual abscess, noted distended GB and cirrhosis. he will need colonoscopy at some point (2) Cirrhosis, alcoholic: Code(s): K70.30 - Alcoholic cirrhosis of liver without ascites Status: Chronic Assessment and Plan: new diagnosis due to excess alcohol use hepatitis panel negative jaundice probably exacerbated by infection and has been ~ 7-8 range nutritional support, thiamine and will need to stop drinking altogether egd as outpatient to assess if varices liver imaging every 6 months for HCC screening unfortunately liver studies and bilirubin are not improving. I emphasized to him the importance of stay away from alcohol. I will schedule him for EGD tomorrow to r/o the varices 3/ his EGD was negative for varices. He did reveal severe Catherine esophagitis. We will begin him on fluconazole for 20 days. fortunately, so far there is no significant evidence of portal hypertension except that on the most recent CT scan there was a small amount of ascites. Varices were not present. (3) Jaundice: Code(s): R17 - Unspecified jaundice Status: Acute Assessment and Plan: elevated but relatively stable Unfortunately, his liver functions are not improving during his hospitalization. (4) Macrocytic anemia: Code(s): D53.9 - Nutritional anemia, unspecified Status: Chronic Assessment and Plan: multifactorial from cirrhosis, etoh abuse, infection, etc. B12 and folic acid levels are normal (5) Diarrhea: Code(s): R19.7 - Diarrhea, unspecified Status: Acute Assessment and Plan: This has improved. Subjective Date/time seen: 08/25/21 13:47 he denies any new complaints. He states that he has not had any significant pain with swallowing. I discussed his esophagitis with Dr. Victor. I explained that reason I had not started Diflucan as because he had been on medications that are contraindicated, including a ondansetron, and hydrocodone, with possible prolongation of QT and we agree that we could stop those medications now so that he can begin his antifungal therapy Review of Systems Review of Systems: All systems reviewed & are unremarkable except as noted in HPI and below Exam Const: General: no acute distress, alert and uncomfortable Nutritional Appearance: obese Orientation/consciousness: patient oriented x3 Eyes: Sclera: scleral abnormality ( icterus) Resp: Auscultation: clear to auscultation bilaterally Cardio: Rhythm: regular rhythm GI: Inspection: incision (Dressing on lower abdomen) and other ( large dressing to lower abdomen) Auscultation: normal bowel sounds Skin: General skin exam: erythema ( palm or erythema) and jaundice Neuro: General: patient oriented x3 Objective Data Vital Signs Vital Signs: Vital Signs - 24 hr 08/24/21 16:00 08/24/21 20:00 08/25/21 00:00 Temperature 36.6 C 36.1 C L Pulse Rate 81 92 Pulse Rate [Bilateral Pedal (Dorsalis Pedis) Palpation] 94 Respiratory Rate 21 H 100 H Blood Pressure 115/62 142/69 H Pulse Oximetry 100 100 08/25/21 04:00 08/25/21 09:30 08/25/21 13:18 Temperature 36.3 C L 36.1 C L 36.6 C Pulse Rate 82 86 89 Pulse Rate [Bilateral Pedal (Dorsalis Pedis) Palpation] Respiratory Rate 21 H 16 18 Blood Pressure 127/82 110/72 129/74 Pulse Oximetry 100 99 100 Intake/Output Intake/Output: Intake & Output 08/22/21 08/23/21 08/24/21 08/25/21 23:59 23:59 23:59 23:59 Intake Total 1870 2070 700 970 Output Total 970 1025 950 600 Balance 900 1
[2021-08-25 16:34] LABS: Glucose Point of Care 132 mg/dl (65-105)
[2021-08-25 17:09] VITALS: BP 132/80; PULSE 84; RESP 18; TEMP 36.4; O2SAT 100
[2021-08-25 20:00] VITALS: BP 120/62; PULSE 89; PULSE 94; RESP 17; TEMP 37.2; O2SAT 99
[2021-08-25 20:22] LABS: Glucose Point of Care 106 mg/dl (65-105)
[2021-08-26] VITALS: BP 111/55; PULSE 96; RESP 18; TEMP 36.6; O2SAT 97
[2021-08-26 04:00] VITALS: BP 126/65; PULSE 101; RESP 16; TEMP 36.6; O2SAT 98
[2021-08-26 04:57] LABS: Hematocrit 26.1 % (42.0-52.0); Hemoglobin 8.7 g/dL (14.0-18.0); Mean Corpuscular HGB Conc 33.3 g/dl (32-36); Mean Corpuscular Hemoglobin 37.7 pg (26-34); Platelet Count Result 176 k/mm3 (150-375); Red Blood Count 2.31 M/mm3 (4.6-6.20); Red Cell Distribution Width 15.6 % (11.5-14.5); White Blood Count 10.5 K/mm3 (4.5-10.0)
[2021-08-26 05:10] LABS: Alanine Aminotransferase 67 U/L (4-50); Albumin Level 2.6 g/dL (3.5-5.1); Alkaline Phosphatase 319 U/L (38-126); Anion Gap 5 mmol/L (8-16); Aspartate Amino Transferase 129 U/L (17-59); Bilirubin,Total 9.2 mg/dL (0.2-1.3); Blood Urea Nitrogen 5 mg/dL (9-20); Calcium 7.7 mg/dL (8.4-10.2); Carbon Dioxide 24 mmol/L (22-30); Chloride 104 mmol/L (98-107); Estimated CRCL calculation 122 ml/min; Estimated Glomerular Filt Rate > 60; Glucose 130 mg/dL (65-110); Magnesium 1.4 mg/dL (1.6-2.3); Potassium 4.2 mmol/L (3.4-5.0); Sodium 133 mmol/L (137-145)
[2021-08-26 08:00] LABS: Glucose Point of Care 124 mg/dl (65-105)
[2021-08-26] MEDS: FLUCONAZOLE 100 MG TABLET PO (08:06)
[2021-08-26] MEDS: THIAMINE HCL 100 MG TABLET PO (08:06)
[2021-08-26] MEDS: MAGNESIUM SULF 4 GM/WATER100ML 4 GM/100 ML BAG IVPB (08:07)
[2021-08-26] MEDS: FOLIC ACID 1 MG TABLET PO (08:07)
[2021-08-26] MEDS: PANTOPRAZOLE 40 MG TABLET PO (08:07)
[2021-08-26] MEDS: MAGNESIUM OXIDE 400 MG TABLET PO (08:07)
[2021-08-26] MEDS: ENOXAPARIN 40 MG/0.4 ML SYRINGE SUB-Q (08:13)
[2021-08-26 09:05] VITALS: BP 107/65; PULSE 96; RESP 20; TEMP 36.1; O2SAT 99
[2021-08-26 11:25] LABS: Glucose Point of Care 140 mg/dl (65-105)
[2021-08-26 13:05] VITALS: BP 123/72; PULSE 85; RESP 14; TEMP 36.2; O2SAT 100
[2021-08-26 16:22] LABS: Glucose Point of Care 109 mg/dl (65-105)
[2021-08-26 17:20] VITALS: BP 117/58; PULSE 71; RESP 16; TEMP 36.2; O2SAT 100
[2021-08-26 19:57] VITALS: BP 111/68; PULSE 81; RESP 17; TEMP 37.1; O2SAT 100
[2021-08-26 20:24] LABS: Glucose Point of Care 122 mg/dl (65-105)
[2021-08-27 04:23] VITALS: BP 134/56; PULSE 84; RESP 16; TEMP 36.4; O2SAT 95
[2021-08-27 04:59] LABS: Hematocrit 25.2 % (42.0-52.0); Hemoglobin 8.4 g/dL (14.0-18.0); Mean Corpuscular HGB Conc 33.3 g/dl (32-36); Mean Corpuscular Hemoglobin 36.8 pg (26-34); Mean Corpuscular Volume 110.5 fl (80-100); Mean Platelet Volume 11.1 fl (7.4-10.4); Platelet Count Result 176 k/mm3 (150-375); Red Blood Count 2.28 M/mm3 (4.6-6.20); White Blood Count 9.7 K/mm3 (4.5-10.0)
[2021-08-27 05:19] LABS: Alanine Aminotransferase 67 U/L (4-50); Albumin Level 2.5 g/dL (3.5-5.1); Alkaline Phosphatase 322 U/L (38-126); Anion Gap 6 mmol/L (8-16); Aspartate Amino Transferase 119 U/L (17-59); Bilirubin,Total 8.9 mg/dL (0.2-1.3); Blood Urea Nitrogen 6 mg/dL (9-20); Carbon Dioxide 24 mmol/L (22-30); Chloride 105 mmol/L (98-107); Estimated CRCL calculation 122 ml/min; Estimated Glomerular Filt Rate > 60; Glucose 130 mg/dL (65-110); Magnesium 1.5 mg/dL (1.6-2.3); Potassium 4.2 mmol/L (3.4-5.0); Sodium 135 mmol/L (137-145)
[2021-08-27 07:55] LABS: Glucose Point of Care 119 mg/dl (65-105)
[2021-08-27] MEDS: FOLIC ACID 1 MG TABLET PO (08:15)
[2021-08-27] MEDS: FLUCONAZOLE 100 MG TABLET PO (08:15)
[2021-08-27] MEDS: PANTOPRAZOLE 40 MG TABLET PO (08:15)
[2021-08-27] MEDS: MAGNESIUM OXIDE 400 MG TABLET PO (08:15)
[2021-08-27] MEDS: THIAMINE HCL 100 MG TABLET PO (08:15)
[2021-08-27] MEDS: ENOXAPARIN 40 MG/0.4 ML SYRINGE SUB-Q (08:18)
[2021-08-27] MEDS: MAGNESIUM SULF 4 GM/WATER100ML 4 GM/100 ML BAG IVPB (08:24)
[2021-08-27 11:34] LABS: Glucose Point of Care 168 mg/dl (65-105)
[2021-08-27 13:10] VITALS: BP 123/67; PULSE 91; RESP 20; TEMP 36.3; O2SAT 99
[2021-08-27 16:34] LABS: Glucose Point of Care 175 mg/dl (65-105)
[2021-08-27 20:09] LABS: Glucose Point of Care 159 mg/dl (65-105)
[2021-08-27 21:00] VITALS: BP 139/74; PULSE 88; RESP 19; TEMP 36.4; O2SAT 99
[2021-08-28 05:00] VITALS: BP 130/80; PULSE 84; RESP 18; TEMP 36.2; O2SAT 100
[2021-08-28 05:14] LABS: Hematocrit 26.1 % (42.0-52.0); Hemoglobin 8.7 g/dL (14.0-18.0); Mean Corpuscular HGB Conc 33.3 g/dl (32-36); Mean Corpuscular Hemoglobin 37.2 pg (26-34); Mean Corpuscular Volume 111.5 fl (80-100); Platelet Count Result 191 k/mm3 (150-375); Red Blood Count 2.34 M/mm3 (4.6-6.20); Red Cell Distribution Width 16.3 % (11.5-14.5); White Blood Count 7.7 K/mm3 (4.5-10.0)
[2021-08-28 05:29] LABS: Alanine Aminotransferase 62 U/L (4-50); Albumin Level 2.7 g/dL (3.5-5.1); Alkaline Phosphatase 330 U/L (38-126); Anion Gap 4 mmol/L (8-16); Aspartate Amino Transferase 104 U/L (17-59); Bilirubin,Total 6.9 mg/dL (0.2-1.3); Blood Urea Nitrogen 7 mg/dL (9-20); Calcium 8.1 mg/dL (8.4-10.2); Carbon Dioxide 28 mmol/L (22-30); Chloride 102 mmol/L (98-107); Estimated CRCL calculation 122 ml/min; Estimated Glomerular Filt Rate > 60; Glucose 133 mg/dL (65-110); Magnesium 1.4 mg/dL (1.6-2.3); Potassium 4.1 mmol/L (3.4-5.0); Sodium 134 mmol/L (137-145)
[2021-08-28 07:36] LABS: Glucose Point of Care 157 mg/dl (65-105)
[2021-08-28] MEDS: FOLIC ACID 1 MG TABLET PO (09:22)
[2021-08-28] MEDS: THIAMINE HCL 100 MG TABLET PO (09:22)
[2021-08-28] MEDS: FLUCONAZOLE 100 MG TABLET PO (09:22)
[2021-08-28] MEDS: PANTOPRAZOLE 40 MG TABLET PO (09:22)
[2021-08-28] MEDS: MAGNESIUM SULF 4 GM/WATER100ML 4 GM/100 ML BAG IVPB (09:22)
[2021-08-28] MEDS: MAGNESIUM OXIDE 400 MG TABLET PO (09:22)
[2021-08-28] MEDS: ENOXAPARIN 40 MG/0.4 ML SYRINGE SUB-Q (09:22)
--- NOTE | 2021-08-28 09:52 | PCOTNOTE ---
Attempted to see patient, patient stated he participated with PT and declined at this time. Patient asked therapist to attempt later.
--- NOTE | 2021-08-28 12:10 | PC.NURSE ---
sugar was checked and is 99. glucometer glitched and is not uploading.
--- NOTE | 2021-08-28 12:44 | PM.PNGS ---
Progress Note: A&P Assessment and Plan (1) Abdominal wall abscess: Code(s): L02.211 - Cutaneous abscess of abdominal wall Status: Acute Assessment and Plan: Remaining mushroom catheter removed at bedside. Wound looks good and will continue to require dressing until it heals. Instructed patient to take daily shower, wash wound with soap, rinse dry off and replace dressing daily. I will see him in 2 weeks. Will need colonoscopy in 3-4 weeks (2) Cholelithiasis: Code(s): K80.20 - Calculus of gallbladder without cholecystitis without obstruction Status: Chronic Assessment and Plan: Stones noted but no evidence cholecystitis. Cholecystectomy would be very high risk in patient with severe cirrhosis and jaundice. (3) Catherine esophagitis: Code(s): B37.81 - Candidal esophagitis Status: Acute Assessment and Plan: Noted on EGD. Will go home on Diflucan. (4) Cirrhosis, alcoholic: Code(s): K70.30 - Alcoholic cirrhosis of liver without ascites Status: Chronic Assessment and Plan: Strongly expressed the need to abstain from all alcohol. Patient voices that he plans to do so. Subjective Subjective Date/Time Seen: 08/28/21 12:44 Patient reports: pain is less, tolerating a regular diet, bowel movement, afebrile and other (Having urinary incontinence) Review of Systems Review of Systems: All systems reviewed & are unremarkable except as noted in HPI and below (HPI and those noted below) Constitutional: Constitutional: Denies body ache(s), Denies chills, Reports fatigue, Denies fever(s) and Denies night sweats Gastrointestinal: Gastrointestinal: Denies abdominal pain, Denies bloating, Denies nausea and Denies vomiting Genitourinary: Genitourinary: Reports as per HPI, Reports erectile dysfunction and Reports urinary incontinence Exam GI: Inspection: non-distended and incision (Mushroom catheter removed, no purulence) GI Palp: Yes Soft to palpation, No Tenderness to palpation present (GI), No Palpable mass present and No Ascites present Percussion: No Fluid wave present Auscultation: normal bowel sounds Skin: General skin exam: jaundice (Less pronounced) Objective Data Vital Signs Vital Signs: Vital Signs - 24 hr 08/27/21 13:10 08/27/21 21:00 08/28/21 05:00 Temperature 36.3 C L 36.4 C 36.2 C L Pulse Rate 91 88 84 Respiratory Rate 20 19 18 Blood Pressure 123/67 139/74 130/80 Pulse Oximetry 99 99 100 Intake/Output Intake/Output: Intake & Output 08/25/21 08/26/21 08/27/21 08/28/21 23:59 23:59 23:59 23:59 Intake Total 1090 1120 1256 220 Output Total 1300 1950 300 200 Balance -210 -830 956 20 Meds/Results Medications: Active Medications Generic Name Dose Route Start Last Admin Trade Name Freq PRN Reason Stop Dose Admin Acetaminophen 500 mg 08/16/21 19:04 Acetaminophen 500 Mg Tablet PO Q6H PRN Mild Pain (1-3) or Fever Dextrose 12.5 gm 08/17/21 07:44 Dextrose 50% 25 Gm/50 Ml Syringe IV PUSH PRN PRN Hypoglycemia Protocol Enoxaparin Sodium 40 mg 08/17/21 09:00 08/28/21 09:22 Enoxaparin 40 Mg/0.4 Ml Syringe SUB-Q 40 mg DAILY RYANN Administration Fluconazole 100 mg 08/25/21 12:40 08/28/21 09:22 Fluconazole 100 Mg Tablet PO 100 mg QAM RYANN Administration Folic Acid 1 mg 08/17/21 09:00 08/28/21 09:22 Folic Acid 1 Mg Tablet PO 1 mg DAILY RYANN Administration Glucagon 1 mg 08/17/21 07:44 Glucagon For Inj 1 Mg Vial IM PRN PRN Hypoglycemia Protocol Glucose 15 gm 08/17/21 07:44 Glucose Oral Gel 15 Gm Of Glucse In 37.5 Gm Tube PO PRN PRN Hypoglycemia Protocol Dextrose 1,000 mls @ 100 mls/hr 08/17/21 07:44 Dextrose 5% 1,000 Ml IVPB PRN PRN Hypoglycemia Protocol Ibuprofen 600 mg 08/25/21 14:46 Ibuprofen 600 Mg Tablet PO Q6H PRN Pain Rated 4-6 Insulin Aspart 3 - 6 units 08/17/21 08:00 08/28/21
[2021-08-28 13:00] VITALS: BP 111/65; PULSE 101; RESP 18; TEMP 36.5; O2SAT 100
[2021-08-28 14:05] VITALS: BP 115/62; PULSE 100; RESP 18; TEMP 36.4; O2SAT 100
[2021-08-28 15:39] LABS: Add Urine Microscopic? YES; Appearance Urine Clear (Clear); Bilirubin Urine Negative (Negative); Blood Urine Negative (Negative); Color Urine Amber (Yellow); Glucose Urine UA Negative (Negative); Ketones Urine Negative (Negative); Leukocyte Esterase Ur Negative LEU/UL (Negative); Mucus Urine Rare /lpf; Nitrate Urine Negative (Negative); Protein Urine Negative (Negative); Specific Grav Ur 1.016 (1.001-1.035)
--- NOTE | 2021-08-28 16:47 | WPDURCON ---
Assessment and Plan Assessment and plan (1) Urinary incontinence: Code(s): R32 - Unspecified urinary incontinence Status: Acute Assessment and Plan: We will do a bladder scan to ensure proper emptying, if normal we can start Oxybutynin 5mg IR BID at home to help temporarily. I suspect this is caused from a UTI and may not be needed shelter, but will help in the meantime. (2) Microhematuria: Code(s): R31.29 - Other microscopic hematuria Status: Acute Assessment and Plan: CT abdomen/pelvis with contrast on 08/21/2021 showing normal upper tracts. Urine culture is pending. I suggest he start Nitrofurantoin at home after discharge and we will watch for his culture to tailor antibiotics to sensitivity report. I suspect a UTI may be the cause of his acute onset of urinary symptoms. He should f/u for a cystoscopy in the office with Dr. Gaona or Dr. Monzon. No further evaluation while admitted, ok to discharge home. (3) Urgency of urination: Code(s): R39.15 - Urgency of urination Status: Acute Urology Consult Note HPI Date Seen: 08/28/21 Requesting Physician: Gokul Saavedra MD Primary Care Provider: TITLE CLERK [employer]IC[employer] Consult Narrative Narrative: Garrison Pierson is a 60 year old male who presented intially for abdominal pain which was found to be caused from a complicated intra-abdominal abscess. He had this abscess drained by Dr. Victor on 08/16/2021 and a drain was placed. He has been hospitalized since. There was thought to have been a fistula involved initially, however a repeat CT scan after the I&D doesn't appear to support this finding. Since being hospitalized he has developed urinary urgency, incontinence and frequency. He denies hematuria, dysuria or flank pain. He states that this was not a problem for him at home. He had nocturia 2x/night and urinated q 3-4 hours at home prior to this stay without any difficulty. He had no straining or hesitancy. His WBC is 7.7 and Creatinine is 0.60. UA is 3-5 RBC's and leukocytes are also present. A urine culture was sent today and is pending. He is not currently on antibiotics but is taking diflucan. Review of Systems Cardiovascular: Cardiovascular: Denies chest pain Respiratory: Respiratory: Reports no additional respiratory complaints Gastrointestinal: Gastrointestinal: Denies abdominal pain, Denies nausea and Denies vomiting Genitourinary: Genitourinary: Denies hematuria, Denies dysuria, Denies flank pain, Reports urinary frequency, Denies urinary hesitancy, Reports urinary incontinence and Reports urinary urgency PMFSH Past Medical History Medical History Alcohol abuse Cholelithiasis Cirrhosis Cirrhosis, alcoholic Diarrhea Tobacco abuse Surgical History Surgical History History of open reduction and internal fixation (ORIF) procedure Internal fixation right leg fracture. Family History Family History Other Hypertension No pertinent family history Social History Social History Social History: Surrogate decision-maker: Campbell Gimenez, friend. CODE STATUS: Full code. Smoking packs per day: 1 Smoking cigarettes per day: 20.0 Years smoked: 40 Smoking pack-years: 40.00 Smoking status: Current every day smoker Tobacco type: cigarettes Second hand tobacco smoke exposure: Yes Alcohol intake: current Alcohol use details: 06/28 vodka daily Substance use: never Substance use type: does not use Other substance usage details: pt drinks a bottle of vodka a day Last use: 08/13/21 Additional living arrangements comments: The patient was in [place]. Originally from [facility]. Gender identity (if verbalized by the patient): Male Spiritual care concerns: No M
[2021-08-28 17:07] LABS: Glucose Point of Care 113 mg/dl (65-105)
--- NOTE | 2021-08-28 17:25 | P.DS_ITS ---
DS: Admitting Diagnosis Discharge Date 08/28/2021 Admitting Diagnosis abdominal pain DS: Discharge Diagnosis Discharge Diagnosis (1) Sepsis: Qualifiers: Sepsis acute organ dysfunction status: unspecified Sepsis type: sepsis due to unspecified organism Qualified Code(s): A41.9 - Sepsis, unspecified organism Code(s): A41.9 - Sepsis, unspecified organism Status: Acute Assessment and Plan: RESOLVED Present on admission and supported by fever, leukocytosis with bandemia, and lactic acidosis in the setting of infection. Lactic acid level has improved with IV fluid rehydration. -08/16 Blood cultures with no growth so far -08/16: Abscess cultures with E coli. Streptococcus anginosus. E coli is pansensitive. currently on Zosyn start date 08/17/2021 May change to Augmentin for continue treatment. 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 Drain in place further management per surgery drain cavity without significant residual drainable fluid. Removal of drain per General surgery will await their recommendations (3) Electrolyte abnormality: Code(s): E87.8 - Other disorders of electrolyte and fluid balance, not elsewhere classified Status: Acute Assessment and Plan: potassium and magnesium replaced, -mild hyponatremia at with sodium levels of 132, continue to monitor Recheck labs and monitor Replace magnesium with magnesium sulfate 2 g today (4) Hyperglycemia: Code(s): R73.9 - Hyperglycemia, unspecified Status: Acute Assessment and Plan: Added sliding scale insulin and Accu-Cheks -hemoglobin A1c this admission is 5.8 Likely due to underlying infection (5) Hepatitis: Code(s): K75.9 - Inflammatory liver disease, unspecified Status: Acute Assessment and Plan: Etiology not entirely clear. May be related to sepsis, alcoholic hepatitis, or other. Possible cholecystitis on CT though that seems less likely by exam. -hepatitis panel is negative -continue to monitor (6) Cirrhosis: Qualifiers: Ascites presence: unspecified Hepatic cirrhosis type: alcoholic cirrhosis Qualified Code(s): K70.30 - Alcoholic cirrhosis of liver without ascites Code(s): K74.60 - Unspecified cirrhosis of liver Status: Chronic Assessment and Plan: Likely related to his ongoing alcohol abuse. Counseled on stopping alcohol use He will need to follow up with liver closely as an outpatient basis CT abdomen with minimal ascites Will need EGD to assess for versus Hepatitis profile is negative Ferritin is 964 Alpha fetoprotein ordered which is pending INR is 1.4, AST more than ALT, macrocytosis suggestive of alcoholic liver disease Ammonia level is normal Add lactulose p.r.n. (7) Macrocytic anemia: Code(s): D53.9 - Nutritional anemia, unspecified Status: Chronic Assessment and Plan: B12 folate normal iron studies with anemia of chronic disease -could be related to alcohol abuse (8) Tobacco abuse: Code(s): Z72.0 - Tobacco use
== END 2021-08-28 18:45 | disposition home or self-care (01) | DRG 720 ==
LOC: ANHED 14:47 → ANHICU 23:33 → ANH2MED 08-23 15:38 → ANHICU 08-29 10:59
PROVIDERS: Emergency Medicine; Internal Medicine; Internal Medicine Gastroenterology; Physician Assistant; Surgery; Admitting Provider Internal Medicine; Emergency Provider Emergency Medicine; Visit Provider Family Medicine
PROC: 0W9G30Z Drainage of Peritoneal Cavity with Drainage Device, Percutaneous Approach (ICD-10-PCS; principal; 2021-08-16 17:00)
PROC: 0DJ08ZZ Inspection of Upper Intestinal Tract, Via Natural or Artificial Opening Endoscopic (ICD-10-PCS; CPT 43235; principal; 2021-08-24 12:30)
DX: A41.9 Sepsis, unspecified organism (principal); K57.20 Diverticulitis of large intestine with perforation and abscess without bleeding; K65.1 Peritoneal abscess; F10.10 Alcohol abuse, uncomplicated; Y90.9 Presence of alcohol in blood, level not specified; I48.91 Unspecified atrial fibrillation; J18.9 Pneumonia, unspecified organism; F17.210 Nicotine dependence, cigarettes, uncomplicated; E87.8 Other disorders of electrolyte and fluid balance, not elsewhere classified; E87.1 Hypo-osmolality and hyponatremia; E87.6 Hypokalemia; E83.51 Hypocalcemia; E83.42 Hypomagnesemia; R73.9 Hyperglycemia, unspecified; K75.9 Inflammatory liver disease, unspecified; K70.30 Alcoholic cirrhosis of liver without ascites; D53.9 Nutritional anemia, unspecified; E87.2 Acidosis; L02.211 Cutaneous abscess of abdominal wall; B96.20 Unspecified Escherichia coli [E. coli] as the cause of diseases classified elsewhere; B95.4 Other streptococcus as the cause of diseases classified elsewhere; K80.20 Calculus of gallbladder without cholecystitis without obstruction; K52.1 Toxic gastroenteritis and colitis; T36.95XA Adverse effect of unspecified systemic antibiotic, initial encounter; Y92.230 Patient room in hospital as the place of occurrence of the external cause; B37.81 Candidal esophagitis; R31.29 Other microscopic hematuria; N39.0 Urinary tract infection, site not specified; E66.9 Obesity, unspecified; Z68.27 Body mass index [BMI] 27.0-27.9, adult
CPT/HCPCS: 36415; 51600; 51702; 71045; 74177; 74430; 80048; 80053; 80074; 81001; 82105; 82140; 82607; 82728; 82746; 82948; 83036; 83540; 83550; 83605; 83615; 83690; 83735; 84443; 85025; 85027; 85055; 85610; 85730; 86850; 86900; 86901; 87040; 87070; 87075; 87077; 87086; 87186; 87205; 88305; 88312; 93005; 96361; 96365; 96375; 97110; 97116; 97161; 97165; 97530; 97535; 99215; 99285; A9270; C1729; C9803; G0463; J0330; J0610; J1100; J1650; J1815; J2060; J2250; J2270; J2405; J2543; J2704; J3010; J3411; J3475; J3480; J7040; J7070; J7120; Q9967; U0003; U0005

== ENCOUNTER 2021-10-06 14:03 | Outpatient (CLI) | payer OTHER, SELFPAY ==
--- NOTE | ~2021-10-06 | CT_ITS ---
EXAMINATION: CT abdomen pelvis wo con EXAM DATE: 10/06/2021 14:21 INDICATION: L02.211 - Cutaneous abscess of abdominal wall. TECHNIQUE: Spiral CT of the abdomen and pelvis was performed without contrast. Axial, coronal and s agittal images of the abdomen and pelvis were reviewed. The dose-length product (DLP) for this exami [employer] was 440.95 mGy-cm. The exposure was tailored according to patient size (auto mA exposure cont rol), and iterative reconstruction (ASIR) was used as additional dose reduction technique. Comparison is made to prior examination from 08/21/2021. FINDINGS: Small amount of dense material in the infraumbilical surgical tract probably packing, exten ds to an infraumbilical pocket of fluid and gas, small abscess or seroma measuring about 4 x 3 x 1 cm . The abdominal wall appears have closed, now contiguous. No abscess within the abdominal cavity. The re is tract of scarring along the previously seen large tube extending toward the bladder dome. There is thickening of the superior aspect of the bladder as previously seen which could be from chronic i nflammation although cancer can also cause bladder wall thickening. Also reidentification multiple fi stulous tracts between sigmoid, appendix and small bowel. Previously seen hepatic steatosis has improved. Nodular liver contour, possible cirrhosis. Again ther e is distended gallbladder with small cholelithiasis. Small amount of pericholecystic fluid which was present on previous examination. Small choledocholithiasis identified near the ampulla (axial image 81), several of the gallstones have migrated. Common bile duct measures 9 mm. No nephrolithiasis. Pro state normal in size. Moderate amount of colonic diverticulosis. No free intraperitoneal air. Mild to moderate scattered arteriosclerotic disease. Adrenal glands, spleen, pancreas are unremarkable. No r etroperitoneal lymphadenopathy. IMPRESSION: 1. Persistently distended gallbladder, but interval migration of small gallstones to the ampulla dev elopment of mild biliary dilation. No pericholecystic inflammation. 2. Status post removal of low abdominal drain. 3. Small subcutaneous fluid collection, contiguous to foreign body probably packing. 4. Abdominal wall appears to have closed, healed. 5. Colonic diverticulosis. Multiple lower pelvic fistulous communications. 6. Chronic bladder wall thickening superiorly. 7. Cirrhosis. Reviewed, dictated and finalized at location B. IMPRESSION: 1. Persistently distended gallbladder, but interval migration of small gallsto cornell to the ampulla development of mild biliary dilation. No pericholecystic inf lammation. 2. Status post removal of low abdominal drain. 3. Small subcutaneous fluid collection, contiguous to foreign body probably pa cking. 4. Abdominal wall appears to have closed, healed. 5. Colonic diverticulosis. Multiple lower pelvic fistulous communications. 6. Chronic bladder wall thickening superiorly. 7. Cirrhosis.
== END 2021-10-06 14:04 | disposition home or self-care (01) ==
PROVIDERS: Visit Provider Surgery
DX: L02.211 Cutaneous abscess of abdominal wall (principal); K82.8 Other specified diseases of gallbladder; K80.20 Calculus of gallbladder without cholecystitis without obstruction; Z98.890 Other specified postprocedural states; K57.90 Diverticulosis of intestine, part unspecified, without perforation or abscess without bleeding; R93.41 Abnormal radiologic findings on diagnostic imaging of renal pelvis, ureter, or bladder; K74.60 Unspecified cirrhosis of liver
CPT/HCPCS: 74176

== ENCOUNTER 2021-11-08 00:13 | Day surgery (SDC) | payer OTHER, SELFPAY ==
[2021-11-08] VITALS (8 sets, daily range): BP systolic 131–159; BP diastolic 70–86; PULSE 73–87; RESP 16–23; TEMP 36.6–36.7; O2SAT 98–100; BMI 25.8
[2021-11-08] MEDS: LACTATED RINGERS 1,000 ML 30 ML IV CONT (12:05)
--- NOTE | 2021-11-08 12:16 | WPDHPUPDATE1 ---
History and Physical Update Update Date/Time: 11/08/21 12:16 History and Physical has been reviewed, including an updated exam of the patient. There are NO changes in the patient's condition. Risks, benefits, and alternatives have been discussed and questions answered. Patient agrees to proceed with procedure.
--- NOTE | 2021-11-08 12:22 | WPDANESEPPF ---
Anes - Initial Pre Proc Eval Procedure: Operation Date: 11/08/21 14:00 Proposed Procedures p Incision and Drainage Abdominal Wall Abscess - Luis Alberto Victor MD Date/Time: 11/08/21 12:22 Surgeon: Luis Alberto Victor MD Pre Op Diagnosis: Abd Wall Abscess Patient Data Age: 60 Gender: M Height: 1.83 m Weight: 86.4 kg Last Vital Signs Temp 36.6 C 11/08/21 11:10 Pulse 87 11/08/21 11:10 Resp 20 11/08/21 11:10 BP 136/82 11/08/21 11:10 Pulse Ox 100 11/08/21 11:10 Allergies Allergy/AdvReac Type Severity Reaction Status Date / Time No Known Allergies Allergy Verified 11/08/21 11:15 Home Medications Medication Instructions Recorded Confirmed Type alfuzosin 10 mg PO DAILY 11/08/21 11/08/21 History atorvastatin 40 mg PO DAILY 11/08/21 11/08/21 History cholecalciferol (vitamin D3) 25 mcg PO DAILY 11/08/21 11/08/21 History [Vitamin D3] ketorolac 1 drp LEFT EYE TID 11/08/21 11/08/21 History multivitamin with minerals [Men's 1 tablet PO DAILY 11/08/21 11/08/21 History One Daily] ofloxacin 1 drp LEFT EYE TID 11/08/21 11/08/21 History prednisolone acetate 1 drp EACH EYE TID 11/08/21 11/08/21 History Patient hx anesthesia problems: none Family hx anesthesia problems: none Results Review: All pre-operative results and documents have been reviewed as part of the pre-operative evaluation. [facility] Past Medical History Medical History Alcohol abuse Cholelithiasis Cirrhosis Cirrhosis, alcoholic Diarrhea Tobacco abuse Surgical History Surgical History History of incision and drainage complicated abdominal wall abscess 08/16/21 History of open reduction and internal fixation (ORIF) procedure Internal fixation right leg fracture. Family History Family History Other Hypertension No pertinent family history Social History Social History Social History: Surrogate decision-maker: Campbell Gimenez, friend. CODE STATUS: Full code. Smoking packs per day: 1 Smoking cigarettes per day: 20.0 Years smoked: 40 Smoking pack-years: 40.00 Smoking status: Current every day smoker Tobacco type: cigarettes Second hand tobacco smoke exposure: Yes Alcohol intake: former Alcohol use details: 06/28 VODKA DAILY FOR YEARS-LAST 06/2021 Substance use: never Substance use type: does not use Other substance usage details: pt drinks a bottle of vodka a day Last use: 08/13/21 Living arrangements: alone Additional living arrangements comments: The patient was in [place]. Originally from [facility]. Gender identity (if verbalized by the patient): Male Spiritual care concerns: No Anes - Eval Final PreProcedure Day of Procedure 11/08/21 12:22 Patient weight: normal Heart: regular rate and rhythm Lungs: clear to auscultation Airway: Mallampati scale class II Neurological: alert and oriented Last oral intake: >/= 8 hours ASA classification: IV Emergent: no Anesthetic plan: proceed Anesthesia type and monitoring: general ETT and standard monitoring Results Review: All pre-operative results and documents have been reviewed as part of the pre-operative evaluation. Informed Consent: The patient's anesthetic plan and its attendant risks and benefits were discussed with the patient/family/POA. Questions were solicited and answers provided to the satisfaction of the patient/family/POA.
--- NOTE | 2021-11-08 12:25 | WPDHPUPDATE1 ---
History and Physical Update Update Date/Time: 11/08/21 12:25 History and Physical has been reviewed, including an updated exam of the patient. There are NO changes in the patient's condition. Risks, benefits, and alternatives have been discussed and questions answered. Patient agrees to proceed with procedure.
[2021-11-08] MEDS: LIDO 1%/EPINEPHRINE/PF 1:200,000 30 ML VIAL XX (13:28)
--- NOTE | 2021-11-08 13:40 | W.PM.PROC2 ---
Procedure Note - Detailed Date of Procedure 11/08/21 Pre-op Diagnosis Abd Wall Abscess Post-op Diagnosis Same Procedure Performed Incision and drainage complicated abdominal wall abscess Surgeon Luis Alberto Victor MD [employer] Lakisha Meade [facility] Anesthesia General and Local (1% lidocaine with epinephrine) Indications Patient presented several months ago with a complex abdominal wall abscess that opened into the lower abdomen just below the umbilicus but actually extended through into the abdomen and just over the urinary bladder. This was treated with a long mushroom catheter used as a drain. After the drain was removed the patient was much better but continued to have purulent drainage from the exit site of the drain in the lower abdomen just below the umbilicus. He had a CT scan of the abdomen and pelvis which showed the intra-abdominal portion of the abscess had resolved but a subcutaneous collection persisted. We have been trying to treat this as an outpatient but it does track up to the umbilicus and appears to have a large subcutaneous pocket. He is taken to the operating room now for incision and drainage of this residual abdominal wall abscess. Findings As noted above, the abscess did track from the opening below the umbilicus to just below the umbilical margin. Once the skin and subcutaneous was opened, this was a large deep abscess the did penetrate some of the abdominal wall fascia but did not appear to communicate with the abdominal cavity. There was a tremendous amount of inflammatory granulation tissue within a well-formed subcutaneous cavity there was some purulent fluid associated with this as well. No suggestion of enteric content was seen throughout the drainage procedure. The residual pocket measured 7 cm in length, 3.5 cm in width, and 5.5 cm in depth. Description of Procedure Patient was taken to surgery and induced into general anesthesia per LMA. The abdomen is prepped and draped. Cultures for aerobes anaerobes and Gram stain were obtained from the depths of the abscess cavity. I then infiltrated local into the tract that was bleeding from the opening to the umbilicus. I then placed a clamp in this tract and opened the skin subcutaneous tissue down to the abscess cavity. When I opened this there was a large amount of inflammatory granulation tissue and minimal amounts of pus in the cavity. We suctioned away as much of the granulation tissue as possible. There was a well-formed fibrous capsule around the cavity. We continued to suction and remove granulation tissue. There was a spot in the fascia that was full of granulation tissue and I continued to remove it from this area. This seemed to track a bit caudal but not beyond the limits of the abdominal wall fascia. I did open this fascial tract about 6 or 7 mm to expose it better. We then used a curette to remove the remainder of the inflammatory tissue from the fibrous capsule subcutaneous and skin. We irrigated the wound with dilute peroxide saline mixture. I used cautery to achieve some degree of hemostasis. I then packed the wound with 2 in iodoform Nu Gauze. It was dressed with fluffs and ABDs. Medipore tape was used. The patient was then awakened and taken to recovery in good condition. Sponge and needle counts were correct x2. Estimated Blood Loss -5 Drains No Packing Yes (2 in iodoform Nu Gauze) Pathology Other (Gram stain aerobic and anaerobic cultures were sent) Complications No immediate complications Condition Stable Disposition PACU [facility] Billing Surgery - Charge Forward: Surgery Billing (Incision and drainage complex abdominal wall abscess)
== END 2021-11-08 15:24 | disposition home or self-care (01) ==
PROVIDERS: Visit Provider Surgery
PROC: (CPT 10061; principal; 2021-11-08 14:00)
DX: L02.211 Cutaneous abscess of abdominal wall (principal); K70.30 Alcoholic cirrhosis of liver without ascites; F17.210 Nicotine dependence, cigarettes, uncomplicated
CPT/HCPCS: 10061; 87070; 87075; 87076; 87205; A9270; J0330; J1100; J2250; J2370; J2405; J2704; J3010; J7120

== ENCOUNTER 2021-12-28 07:46 | Outpatient (RCR) | payer OTHER, SELFPAY ==
[2021-11-16 09:15] VITALS: BMI 25.8
--- NOTE | 2021-11-30 17:11 | WPDWOUNDNOTE ---
Wound Care Note Date/Time: 11/30/21 17:11 History: Patient had complex abscess extending from the skin into the abdominal cavity. This was treated with a long mushroom catheter which was removed after approximately 3 weeks. The intra-abdominal portion of the abscess healed but the portion at the skin and subcutaneous level persisted despite wound care. This persistent abscess required outpatient incision and drainage on 11/08/2021. After the incision and drainage of the abdominal wound abscess, patient has been treated with wound VAC therapy. Wound history: Wound VAC therapy started on 11/16/21. Due to foul order and possible fungal involvement, crushed Flagyl was placed at the base of the wound when seen in wound clinic 11/21/2021. He has continued wound VAC therapy and is seen today in follow-up. He continues to have his VAC changed twice a week in the Wound Clinic and the crushed Flagyl as been placed at the base for fungal and odor control. Wound approximation: No Wound width: 1.7 cm Wound length: 2.5 cm Wound depth: 5.5 cm with deeper pocket noted Drainage: Serosanguineous Surrounding tissue appearance: Dry normal Tunneling: Possibly deep aspect Percentage granulation tissue: 100% beefy red Treatment/Procedures: None Dressings: Crushed Flagyl then black foam wound VAC applied. Assessment and Plan Assessment and plan (1) Open wound anterior abdominal wall: Code(s): S31.109A - Unspecified open wound of abdominal wall, unspecified quadrant without penetration into peritoneal cavity, initial encounter Status: Chronic Assessment and Plan: Improving. Beefy red and amelie in all dimensions. Continue crushed Flagyl to base of wound as well as black foam wound VAC negative pressure wound therapy. (2) Abdominal wall abscess: Code(s): L02.211 - Cutaneous abscess of abdominal wall Status: Resolved Assessment and Plan: No sign of persistent abscess or purulent material (3) Cirrhosis, alcoholic: Code(s): K70.30 - Alcoholic cirrhosis of liver without ascites Status: Chronic Assessment and Plan: Patient has stopped drinking entirely since his hospital admission. (4) Smoker: Code(s): F17.200 - Nicotine dependence, unspecified, uncomplicated Status: Chronic Assessment and Plan: Trying to cut back and stop smoking. Encouraged. Review of Systems Review of Systems: All systems reviewed & are unremarkable except as noted in HPI and below (Wound care note) Exam GI: Inspection: other (Lower abdominal midline wound beefy red and obviously smaller, looks good)
--- NOTE | 2021-12-19 12:30 | P.PNWOUND_ITS ---
Wound Care Note Date/Time: 12/14/21 09:30 History: Complicated abdominal wall abscess extending into the abdomen and pelvis. Drained with long mallet cot catheter. When catheter removed, patient developed subcutaneous wound abscess at exit site. Wound history: Patient had incision and drainage of subcutaneous abscess on November 09, 2019. This was done in the operating room. He then had wound VAC therapy and is seen now in the wound clinic. Length and width of the wound have been decreasing significantly but the depth has been slow to improve. Wound approximation: No Wound width: 0.8 cm Wound length: 1.7 cm Wound depth: 5.0 cm Drainage: serosanguineous Surrounding tissue appearance: dry with no rash Tunneling: none Percentage granulation tissue: 100 Treatment/Procedures: none Dressings: wound VAC discontinued. Will start mupirocin and Aquacel Silver rope with gauze and ABD. Assessment and Plan Assessment and plan (1) Open wound anterior abdominal wall: Code(s): S31.109A - Unspecified open wound of abdominal wall, unspecified quadrant wi thout penetration into peritoneal cavity, initial encounter Status: Chronic Assessment and Plan: getting smaller but depth has been slow to improve. Will stop wound VAC for a time and use mupirocin with Aquacel Silver rope gauze and ABD. Recheck in the wound clinic in 2 weeks. Review of Systems Review of Systems: All systems reviewed & are unremarkable except as noted in HPI and below ( Wound care note) Exam Skin: Wounds: wounds noted ( developing a tract to the fascia with with an length decreasing,)
== END 2022-02-14 23:59 | disposition home or self-care (01) ==
LOC: ANHWOC 07:46
PROVIDERS: Visit Provider Surgery
DX: T81.31XD Disruption of external operation (surgical) wound, not elsewhere classified, subsequent encounter (principal)
CPT/HCPCS: 97605; 99212; 99213; A9270; G0463

== ENCOUNTER 2022-01-05 15:24 | Outpatient (CLI) | payer OTHER, SELFPAY ==
--- NOTE | ~2022-01-05 | CT_ITS ---
EXAMINATION: CT abdomen pelvis w con DATE: 01/05/2022 15:54 INDICATION: Recurrent umbilical hernia. TECHNIQUE: Computed tomography (CT) of the abdomen and pelvis was performed with 100 cc Omnipaque 300 intravenous contrast. The dose-length product was 504.96 mGy-cm. Automated exposure control and iter ative reconstruction technique were employed. COMPARISON: CT dated 10/06/2021. FINDINGS: Lung bases are unremarkable. Heart size normal. No significant pleural or pericardial effus ion. There is cirrhosis of the liver. There is splenomegaly, likely due to portal hypertension. Galls tones. Mild gallbladder distention. There is thickening of the sigmoid colon with multiple colonic di verticula. Mild acute diverticulitis not excluded. There is bladder wall thickening with a urachal re mnant. The remnant appears to be contiguous with a fistula extending to the umbilicus. No ureteral st one or hydronephrosis. Mild osteoarthritis of the hips. Moderate lumbar spondylosis. IMPRESSION: 1. 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 2: Abnormally thickened sigmoid colon with mild surrounding inflammatory changes and multiple divert icula, suspicious for acute diverticulitis. No evidence for perforation or abscess. 3: Gallbladder distention with gallstones. Cannot exclude cholecystitis. 4: Cirrhosis with portal hypertension. Reviewed, dictated and finalized at location A. IMPRESSION: 1. Abnormally thickened bladder with thickened irregular remnant and probable v esicocutaneous fistula to the umbilicus. 2: Abnormally thickened sigmoid colon with mild surrounding inflammatory patterson es and multiple diverticula, suspicious for acute diverticulitis. No evidence f or perforation or abscess. 3: Gallbladder distention with gallstones. Cannot exclude cholecystitis. 4: Cirrhosis with portal hypertension.
[2022-01-05 15:47] LABS: Estimated Glomerular Filt Rate > 60
== END 2022-01-05 15:25 | disposition home or self-care (01) ==
PROVIDERS: Visit Provider Surgery
DX: K42.9 Umbilical hernia without obstruction or gangrene (principal); R93.41 Abnormal radiologic findings on diagnostic imaging of renal pelvis, ureter, or bladder; R93.3 Abnormal findings on diagnostic imaging of other parts of digestive tract; K80.20 Calculus of gallbladder without cholecystitis without obstruction; K74.69 Other cirrhosis of liver; K76.6 Portal hypertension
CPT/HCPCS: 74177; Q9967

== ENCOUNTER 2022-01-25 11:41 | Outpatient (CLI) | payer OTHER, SELFPAY ==
--- NOTE | ~2022-01-25 | XR_ITS ---
EXAMINATION: XR chest 2V DATE: 01/25/2022 12:51 INDICATION: Fistula of intestines TECHNIQUE: PA and lateral views of the chest were obtained. COMPARISON: Chest radiograph dated 08/16/2021 FINDINGS: The lungs are clear with no focal airspace opacities, pulmonary edema, pleural effusion or pneumothor ax. The cardiomediastinal silhouette is normal. There are few bilateral old rib fractures. IMPRESSION: 1. No acute cardiopulmonary disease. Reviewed, dictated and finalized at location A.
--- NOTE | 2022-01-25 12:35 | ECG_ITS ---
Measurements Intervals [place] Rate: 69 P: 46 MI: 186 QRS: -22 QRSD: 113 T: 31 QT: 407 QTc: 437 Interpretive Statements SINUS RHYTHM BASELINE ARTIFACT INCOMPLETE RIGHT BUNDLE-BRANCH BLOCK MODERATE VOLTAGE CRITERIA FOR LVH, CONSIDER NORMAL VARIANT CANNOT RULE OUT ANTERIOR MYOCARDIAL INFARCTION, AGE INDETERMINATE ABNORMAL ECG COMPARED TO ECG 08/16/2021 11:34:57 HEART RATE HAS DECREASED, CANNOT RULE OUT ANTERIOR INFARCTION, INCOMPLETE RIGHT BUNDLE- BRANCH BLOCK PRESENT Electronically Signed On 01-25-2022 15:42:10 CDT by Milo Baez M.D.
[2022-01-25 13:14] LABS: Basophils Absolute Auto 0.1 K/mm3 (0.0-0.1); Basophils Percent Auto 1.6 % (0.2-1.2); Eosinophils Absolute Auto 0.1 K/mm3 (0-0.3); Hematocrit 37.8 % (42.0-52.0); Hemoglobin 12.3 g/dL (14.0-18.0); Immature Granulocyte Absolute 0.01 K/mm3 (0.00-0.031); Immature Granulocyte Percent A 0.2 % (0-0.5); Immature Platelet Fraction Pct 5.2 % (0.9-11.2); Lymphocytes Absolute Auto 1.81 K/mm3 (0.9-3.2); Lymphocytes Percent Auto 28.2 % (18.3-44.2); Mean Corpuscular HGB Conc 32.5 g/dl (32-36); Mean Corpuscular Hemoglobin 32.5 pg (26-34); Mean Corpuscular Volume 99.7 fl (80-100); Mean Platelet Volume 10.4 fl (7.4-10.4); Monocytes Absolute Auto 0.6 K/mm3 (0.1-0.6); Monocytes Percent Auto 9.7 % (2.6-8.5); Neutrophils Absolute Auto 3.7 K/mm3 (1.3-6.7); Neutrophils Percent Auto 58.3 % (45.5-73.1); Platelet Count Result 132 k/mm3 (150-375); Red Blood Count 3.79 M/mm3 (4.6-6.20); Red Cell Distribution Width 13.9 % (11.5-14.5); White Blood Count 6.4 K/mm3 (4.5-10.0)
[2022-01-25 13:17] LABS: Add Urine Microscopic? YES; Appearance Urine Clear (Clear); Bilirubin Urine Negative (Negative); Blood Urine Negative (Negative); Color Urine Yellow (Yellow); Glucose Urine UA Negative (Negative); Ketones Urine Negative (Negative); Leukocyte Esterase Ur Trace LEU/UL (Negative); Nitrate Urine Negative (Negative); Protein Urine Negative (Negative); Urobilinogen Urine 0.2 mg/dL (<2.0)
[2022-01-25 13:26] LABS: Mucus Urine Rare /lpf; RBC Urine 0-2 /hpf (0-2)
[2022-01-25 13:26] LABS: Anion Gap 10 mmol/L (8-16); Blood Urea Nitrogen 10 mg/dL (9-20); Carbon Dioxide 28 mmol/L (22-30); Chloride 101 mmol/L (98-107); Estimated Glomerular Filt Rate > 60; Glucose 76 mg/dL (65-110); Potassium 4.4 mmol/L (3.4-5.0); Sodium 139 mmol/L (137-145)
== END 2022-01-25 11:42 | disposition home or self-care (01) ==
LOC: ANHSURGERY 11:47
PROVIDERS: Visit Provider Surgery
DX: K63.2 Fistula of intestine (principal); K57.20 Diverticulitis of large intestine with perforation and abscess without bleeding; I45.10 Unspecified right bundle-branch block
CPT/HCPCS: 36415; 71046; 80048; 81001; 85025; 85055; 86850; 86900; 86901; 93005

== ENCOUNTER 2022-02-07 15:06 | Inpatient (IN) | payer OTHER, SELFPAY ==
--- NOTE | 2022-01-25 11:43 | PC.NURSE ---
Addendum entered by Jamee Sutherland RN 01/25/22 13:19: PT AWARE OF [employer]IB[employer] SHOWER DAY BEFORE SURGERY AND AM OF SURGERY - UNDERSTANDING VOICED Original Note: PRE-OP INSTRUCTIONS, PLEASE READ CAREFULLY Report to the Outpatient Waiting Room, entrance under the green pavilion located off [facility], at time _0630_ on date _02/07/22_. OR Time: _0830_. - You and your visitor will be asked a series of questions to screen for COVID 19 for your protection. - A mask is required within the hospital. - Only one visitor is allowed at this time. - The patient visitor is requested to leave or wait in car when not with patient. - PACK A SMALL OVERNIGHT BAG. VISITING HOURS ARE 10AM-8PM PARK IN FRONT PARKING LOT AND USE MAIN HOSPITAL ENTRANCE Patients may have clear liquids (water, carbonated beverages, clear teas, apple juice) until 3 hours prior to surgery (0530 AM) with a maximum of 20 ounces. - No food from midnight until time of surgery Take the following medications with a SIP of water the morning of surgery: _NONE_ Medications to discontinue per ANESTHESIA - _VITAMINS 3 DAYS PRIOR TO SURGERY, Date to take last dose 02/03/22_ Please no make-up, nail beninese, hairspray, perfume, deodorant, or body powder the day of surgery. No jewelry (including any body piercings) or valuables the day of surgery, leave them at home. Please take a shower or bath the night before, or the morning of, surgery with an antibacterial soap. Wear comfortable, loose fitting clothing. - Jewelry must be removed prior to entering the operating room. Rings and piercings that are not removed may be cut off. - The hospital will not accept responsibility for valuables. - Please leave all valuables, including medications, at home the day of surgery. If you are going home after surgery, a licensed stock driver must drive you home. - NO public transportation without another adult. - We recommend that an adult stay with you for 24 hours following discharge. - We also recommend that you do not drive, make important decision, drink alcoholic beverages, or take any drugs that were not prescribed by your health care provider for at least 24 hours after your discharge time. Follow any additional instructions given to you from your surgeon. If you or anyone in your household have experienced Covid symptoms in the past week, please notify your surgeon or the nurse liaison at the phone number below for possible testing. Instructions given to ____PT and asked if any additional questions and then verbalized understanding. Patient advised to call surgeon office or pre surgery nurse liaison [phone] if any additional questions.
[2022-01-25 11:58] VITALS: BP 134/68; PULSE 82; RESP 20; TEMP 36.8; O2SAT 99; BMI 26.9
[2022-02-07] VITALS (19 sets, daily range): BP systolic 118–167; BP diastolic 71–94; PULSE 72–90; RESP 12–18; TEMP 36.2–36.9; O2SAT 96–100
--- NOTE | 2022-02-07 07:02 | WPDANESEPPF ---
Anes - Initial Pre Proc Eval Procedure: Operation Date: 02/07/22 08:00 Proposed Procedures p Sigmoidectomy with Closure Colocutaneous Fistula - Luis Alberto Victor MD Date/Time: 02/07/22 07:02 Surgeon: Luis Alberto Victor MD Pre Op Diagnosis: Colocutaneous Fistula Diverticulitis with Abscess Patient Data Age: 61 Gender: M Height: 1.83 m Weight: 90.2 kg Last Vital Signs Temp 36.8 C 01/25/22 11:58 Pulse 82 01/25/22 11:58 Resp 20 01/25/22 11:58 BP 134/68 01/25/22 11:58 Pulse Ox 99 01/25/22 11:58 O2 Del Method Room Air 01/25/22 11:58 Allergies Allergy/AdvReac Type Severity Reaction Status Date / Time No Known Allergies Allergy Verified 01/25/22 11:55 Home Medications Medication Instructions Recorded Confirmed Type alfuzosin 10 mg tablet,extended 10 mg PO DAILY 11/08/21 01/25/22 History release 24 hr atorvastatin 40 mg tablet 40 mg PO DAILY 11/08/21 01/25/22 History cholecalciferol (vitamin D3) 25 25 mcg PO DAILY 11/08/21 01/25/22 History mcg (1,000 unit) tablet (Vitamin D3) multivitamin with minerals (Men's 1 tablet PO DAILY 11/08/21 01/25/22 History One Daily tablet) erythromycin 500 mg tablet 1 g PO .COMPLEX #6 tabs 02/05/22 Rx neomycin 500 mg tablet 1 g PO .COMPLEX #6 tabs 02/05/22 Rx Patient hx anesthesia problems: none Family hx anesthesia problems: none Results Review: All pre-operative results and documents have been reviewed as part of the pre-operative evaluation. [facility] Past Medical History Medical History Alcohol abuse Cholelithiasis Cirrhosis Cirrhosis, alcoholic Diarrhea Tobacco abuse Surgical History Surgical History History of incision and drainage complicated abdominal wall abscess 08/16/21 History of open reduction and internal fixation (ORIF) procedure Internal fixation right leg fracture. Status post incision and drainage abdominal wall abscess 11/08/21 Family History Family History Other Hypertension No pertinent family history Social History Social History Social History: Surrogate decision-maker: Campbell Gimenez, friend. CODE STATUS: Full code. Smoking packs per day: 1 Smoking cigarettes per day: 20.0 Years smoked: 40 Smoking pack-years: 40.00 Smoking status: Current every day smoker Tobacco type: cigarettes Second hand tobacco smoke exposure: Yes Alcohol intake: former Alcohol use details: 06/28 VODKA DAILY - STOPPED JUN/JUL 2021 Substance use: never Substance use type: does not use Other substance usage details: pt drinks a bottle of vodka a day Last use: 08/13/21 Living arrangements: alone Additional living arrangements comments: The patient was in [place]. Originally from [facility]. Gender identity (if verbalized by the patient): Male Spiritual care concerns: No Anes - Eval Final PreProcedure Day of Procedure 02/07/22 07:02 Patient weight: overweight Heart: regular rate and rhythm Lungs: decreased breath sounds Airway: Mallampati scale class II Neurological: alert and oriented Last oral intake: >/= 8 hours Emergent: no Anesthetic plan: proceed Anesthesia type and monitoring: general ETT and standard monitoring Results Review: All pre-operative results and documents have been reviewed as part of the pre-operative evaluation. Informed Consent: The patient's anesthetic plan and its attendant risks and benefits were discussed with the patient/family/POA. Questions were solicited and answers provided to the satisfaction of the patient/family/POA.
[2022-02-07] MEDS: ACETAMINOPHEN 500 MG TABLET 1000 MG PO (07:28)
[2022-02-07] MEDS: KETOROLAC 15 MG/ML VIAL (*BKC) IV PUSH (07:28)
[2022-02-07] MEDS: LACTATED RINGERS 1,000 ML 30 ML IV CONT ×2 (07:30→11:03)
[2022-02-07] MEDS: ALVIMOPAN 12 MG CAPSULE PO (07:37)
--- NOTE | 2022-02-07 07:43 | WPDHPUPDATE1 ---
History and Physical Update Update Date/Time: 02/07/22 07:43 History and Physical has been reviewed, including an updated exam of the patient. There are NO changes in the patient's condition. Risks, benefits, and alternatives have been discussed and questions answered. Patient agrees to proceed with procedure.
[2022-02-07] MEDS: ceFAZolin 2 GM/D5W 50 ML 2 GM/50 ML BAG IVPB (07:48)
[2022-02-07] MEDS: metroNIDAZOLE 500 MG/ISO 100ML 500 MG/100 ML BAG 100 MG IVPB (08:00)
--- NOTE | 2022-02-07 11:28 | SUR.PHASEI ---
1125: Simple mask removed.
--- NOTE | 2022-02-07 13:19 | W.PM.PROC2 ---
Procedure Note - Detailed Date of Procedure 02/07/22 Pre-op Diagnosis Colocutaneous Fistula, Diverticulitis with Abscess Post-op Diagnosis Same Procedure Performed Sigmoidectomy with partial urinary bladder resection, appendectomy, repair colocutaneous fistula Surgeon Luis Alberto Victor MD House Officer Lakisha Meade [facility] Anesthesia General Indications Patient is a 61-year-old man with a history of alcoholism cirrhosis portal hypertension and heavy smoker. He presented quite sometime ago with an abscess in the pelvis that extended up to the abdominal wall just under the umbilicus. This was drained with a large mushroom catheter and appeared to work well. However the skin and subcutaneous portion of the abscess did not heal. Multiple wound healing therapies were attempted but none were successful. Recent CT scan showed evidence of a fistula most likely from the sigmoid colon to the skin with adherent urinary bladder and the appendix. Patient has had a small mushroom catheter in the abscess keeping it from forming a new abscess prior to surgery. He has stopped drinking entirely since July. He is still a heavy smoker. He is taken to surgery now for repair of the colocutaneous fistula and likely sigmoid resection. Findings Patient appeared to have a diverticular stricture with abscess in the mid sigmoid as the source of the inflammatory process and fistula. The urinary bladder was densely adherent to the caudal side of the inflammatory process. Some of the wall of the urinary bladder was left attached although a full-thickness resection of the bladder wall was not required. The appendix also was densely adherent to the process and was resected although it had been dissected free of the inflammatory process prior to appendectomy. The skin and fistula opening that were in the midline below the umbilicus were left intact and attached to the sigmoid colon to be given off as the final specimen. Hand-sewn colorectal anastomosis in end-to-end fashion was performed. Description of Procedure The patient was taken to surgery and induced into general anesthesia. Leo catheter was placed. Patient was placed in Andrzej stirrups in lithotomy. Rectal tube in rectal irrigation were then carried out. The abdomen was prepped and draped. A midline incision was made. With the incision, the cutaneous portion of the colo cutaneous fistula was excised with the surrounding skin. The umbilicus was left in place even though it was directly above the opening of the fistula. We then dissected through the subcutaneous. Cautery was used for hemostasis. There was more oozing than usual most likely due to the inflammation. The dissection was carried down to the midline fascia just above the umbilicus. The fascia was opened in the midline and eventually we dissected through into the peritoneal cavity. Placing a hand in the abdomen I was able to feel some bowel attachments in the area of the fistula. I was also able to feel some open area below the fistula where the abdominal wall skin and fascia could be opened without visceral injury. I extended the dissection through the subcutaneous on caudal to the fistula. I then went back to the fistula carefully dissected this inflammatory process and tract from the subcutaneous and the abdominal wall fascia. Was careful to leave nearly all the fascia in place. Eventually we dissected down to the peritoneum. I then continued the dissection in the lower most aspect of the wound. Eventually I was able to free the fistula tract from the right side of the abdominal wound. This allowed visualization of the inflammatory process. When the right-sided been dissected, I then went back to the left side and similarly disconnected the fistula tract from the fascia and the peritoneum so that it was completely free of the abdominal wall. It was at this point evident that the urinary bladder was connected to the inflammatory process on its caudal asp
[2022-02-07] MEDS: FAMOTIDINE 20 MG/2 ML VIAL IV PUSH (20:29)
[2022-02-08 01:21] VITALS: BP 137/68; PULSE 82; RESP 16; TEMP 36.7; O2SAT 95
--- NOTE | 2022-02-08 02:45 | PC.NURSE ---
02/07/22 2100 PT UP IN ROOM WITH ASSIST, WITHOUT DIFFICULTY. PT THEN PROCEEDED TO GET DOWN ON KNEES AND THEN HANDS AND CRAWLED ON FLOOR...STATES YES I CAN DO IT...GOT UP ONTO FEET PER SELF. STATES I HAVE TO CRAWL FOR MY JOB AND I NEEDED TO MAKE SURE I COULD DO IT
[2022-02-08 05:51] LABS: Hematocrit 37.5 % (42.0-52.0); Hemoglobin 12.6 g/dL (14.0-18.0); Immature Platelet Fraction Pct 5.2 % (0.9-11.2); Mean Corpuscular HGB Conc 33.6 g/dl (32-36); Mean Corpuscular Hemoglobin 32.2 pg (26-34); Mean Corpuscular Volume 95.9 fl (80-100); Platelet Count Result 129 k/mm3 (150-375); Red Blood Count 3.91 M/mm3 (4.6-6.20); Red Cell Distribution Width 12.8 % (11.5-14.5); White Blood Count 11.8 K/mm3 (4.5-10.0)
[2022-02-08 06:07] LABS: Anion Gap 8 mmol/L (8-16); Blood Urea Nitrogen 9 mg/dL (9-20); Calcium 9.4 mg/dL (8.4-10.2); Carbon Dioxide 27 mmol/L (22-30); Chloride 100 mmol/L (98-107); Estimated CRCL calculation 105 ml/min; Estimated Glomerular Filt Rate > 60; Glucose 149 mg/dL (65-110); Potassium 4.2 mmol/L (3.4-5.0); Sodium 135 mmol/L (137-145)
[2022-02-08 06:45] VITALS: BP 137/67; PULSE 81; RESP 16; TEMP 36.4; O2SAT 97
--- NOTE | 2022-02-08 07:55 | PM.PNGS ---
Progress Note: A&P Assessment and Plan (1) Diverticulitis of large intestine with abscess without bleeding: Code(s): K57.20 - Diverticulitis of large intestine with perforation and abscess without bleeding Status: Chronic Assessment and Plan: doing well postop day 1. Status post sigmoid resection. Colocutaneous fistula removed with the specimen. Partial urinary bladder resection and appendectomy also necessary for resection. Will advance diet to low fiber. Up today. Start dressing changes. Continue IV fluids for now. 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 Bladder repair was performed and patient will need to continue Leo catheter until has negative cystogram. (4) Smoker: Code(s): F17.200 - Nicotine dependence, unspecified, uncomplicated Status: Chronic Assessment and Plan: Patient not having problems with nicotine withdrawal. Does not want nicotine patch. (5) Cirrhosis, alcoholic: Code(s): K70.30 - Alcoholic cirrhosis of liver without ascites Status: Chronic Assessment and Plan: Stop drinking in July. Tremendous improvement since that time. Subjective Subjective Date/Time Seen: 02/08/22 07:55 Post Op day: 1 Patient reports: no new complaints, no flatus, no bowel movement and afebrile Exam Const: General: comfortable and no acute distress; No confusion Orientation/consciousness: patient oriented x3 and No confusion GI: Inspection: non-distended and incision ( Serosanguineous drainage, looks okay.) GI Palp: Yes Soft to palpation, Yes Tenderness to palpation present (GI), No Guarding due to palpation present (GI) and No Rebound tenderness present Auscultation: Hypoactive bowel sounds present Neuro: General: patient oriented x3, no focal motor deficits and No confusion Extrem: General: no calf tenderness and no edema Psych: Affect: normal affect Insight: Good insight present (Psych) Judgement: Good judgement present (Psych) Objective Data Vital Signs Vital Signs: Vital Signs - 24 hr 02/07/22 11:03 02/07/22 11:15 02/07/22 11:30 Temperature 36.8 C Pulse Rate 86 72 72 Respiratory Rate 14 12 14 Blood Pressure 161/94 H 154/85 H 147/86 H Pulse Oximetry 100 100 96 Oxygen Delivery Simple Face Mask Simple Face Mask Room Air Oxygen Flow Rate 8 8 02/07/22 11:45 02/07/22 12:05 02/07/22 12:20 Temperature Pulse Rate 74 73 78 Respiratory Rate 13 13 12 Blood Pressure 138/72 155/82 H 157/86 H Pulse Oximetry 96 96 96 Oxygen Delivery Room Air Room Air Room Air Oxygen Flow Rate 02/07/22 12:28 02/07/22 12:55 02/07/22 13:25 Temperature Pulse Rate 75 78 72 Respiratory Rate 12 14 14 Blood Pressure 159/85 H 141/71 H 142/71 H Pulse Oximetry Oxygen Delivery Room Air Room Air Room Air Oxygen Flow Rate 02/07/22 13:55 02/07/22 14:25 02/07/22 14:55 Temperature 36.9 C Pulse Rate 86 85 87 Respiratory Rate 16 16 16 Blood Pressure 141/72 H 147/84 H 151/86 H Pulse Oximetry Oxygen Delivery Room Air Room Air Room Air Oxygen Flow Rate 02/07/22 15:40 02/07/22 16:46 02/07/22 15:45 Temperature 36.4 C Pulse Rate 86 Respiratory Rate 16 Blood Pressure 167/79 H Pulse Oximetry 97 98 Oxygen Delivery Room Air Room Air Oxygen Flow Rate 02/07/22 16:00 02/07/22 16:30 02/07/22 17:30 Temperature 36.3 C L 36.4 C L 36.4 C Pulse Rate 88 88 90 Respiratory Rate 14 14 14 Blood Pressure 167/92 H 130/81 157/78 H Pulse Oximetry 100 99 97 Oxygen Delivery Oxygen Flow Rate 02/07/22 20:30 02/08/22 01:21 02/08/22 06:45 Temperature 36.4 C 36.7 C 36.4 C L Pulse Rate 8
[2022-02-08] MEDS: DEXTROSE 5%/LACTATED RINGERS 1,000 ML 80 ML IV CONT ×2 (08:28→20:38)
[2022-02-08] MEDS: ATORVASTATIN 40 MG TABLET PO (08:30)
[2022-02-08] MEDS: FAMOTIDINE 20 MG TABLET PO ×2 (08:31→20:35)
[2022-02-08 11:56] VITALS: BP 139/63; PULSE 82; RESP 18; TEMP 36.6; O2SAT 96
--- NOTE | 2022-02-08 12:09 | WPDANESPN ---
Anes - Prog Note Post-Op Date/Time: 02/08/22 12:09 Vital Signs: Last Vital Signs Temp 36.6 C 02/08/22 11:56 Pulse 82 02/08/22 11:56 Resp 18 02/08/22 11:56 BP 139/63 02/08/22 11:56 Pulse Ox 96 02/08/22 11:56 O2 Del Method Room Air 02/08/22 08:45 O2 Flow Rate 8 02/07/22 11:15 Pain Score (VAS): 0 I/O: Intake & Output 02/07/22 02/08/22 02/08/22 23:59 07:59 15:59 Intake Total 730 1100 Output Total 4200 1500 Balance 730 -3100 -1500 Laboratory Tests 02/08/22 05:17 02/08/22 05:17 02/08/22 02/08/22 05:17 05:17 WBC 11.8 H RBC 3.91 L Hgb 12.6 L Hct 37.5 L MCV 95.9 MCH 32.2 MCHC 33.6 RDW 12.8 Plt Count 129 L MPV 11.0 H % Immature Plt Fraction 5.2 Sodium 135 L Potassium 4.2 Chloride 100 Carbon Dioxide 27 Anion Gap 8 BUN 9 Creatinine 0.70 Estim Creat Clear Calc 105 Estimated GFR > 60 Glucose 149 H Calcium 9.4 Patient Feedback: Patient satisfied with anesthetic care.
[2022-02-08 18:24] VITALS: BP 124/74; PULSE 82; RESP 18; TEMP 36.7; O2SAT 97
[2022-02-08] MEDS: ALVIMOPAN 12 MG CAPSULE PO (20:35)
[2022-02-08 22:01] VITALS: BP 147/77; PULSE 94; RESP 16; TEMP 36.4; O2SAT 98
[2022-02-09 03:36] VITALS: BP 149/87; PULSE 86; RESP 16; TEMP 36.6; O2SAT 97
[2022-02-09 05:45] LABS: Anion Gap 6 mmol/L (8-16); Blood Urea Nitrogen 12 mg/dL (9-20); Calcium 8.5 mg/dL (8.4-10.2); Carbon Dioxide 29 mmol/L (22-30); Chloride 102 mmol/L (98-107); Estimated CRCL calculation 105 ml/min; Estimated Glomerular Filt Rate > 60; Glucose 148 mg/dL (65-110); Potassium 3.7 mmol/L (3.4-5.0); Sodium 137 mmol/L (137-145)
[2022-02-09 05:52] LABS: Hematocrit 33.9 % (42.0-52.0); Hemoglobin 11.1 g/dL (14.0-18.0); Immature Platelet Fraction Pct 4.3 % (0.9-11.2); Mean Corpuscular HGB Conc 32.7 g/dl (32-36); Mean Corpuscular Hemoglobin 32.2 pg (26-34); Mean Corpuscular Volume 98.3 fl (80-100); Mean Platelet Volume 11.1 fl (7.4-10.4); Platelet Count Result 98 k/mm3 (150-375); Red Blood Count 3.45 M/mm3 (4.6-6.20); Red Cell Distribution Width 13.1 % (11.5-14.5); White Blood Count 6.4 K/mm3 (4.5-10.0)
[2022-02-09 08:10] VITALS: BP 137/71; PULSE 63; RESP 18; TEMP 36.6; O2SAT 98
[2022-02-09] MEDS: ATORVASTATIN 40 MG TABLET PO (08:13)
[2022-02-09] MEDS: FAMOTIDINE 20 MG TABLET PO ×2 (08:13→21:04)
[2022-02-09] MEDS: ALVIMOPAN 12 MG CAPSULE PO (08:13)
[2022-02-09] MEDS: ENOXAPARIN 40 MG/0.4 ML SYRINGE SUB-Q (08:57)
[2022-02-09] MEDS: DEXTROSE 5%/LACTATED RINGERS 1,000 ML 80 ML IV CONT ×2 (08:58→21:04)
--- NOTE | 2022-02-09 12:38 | PM.PNGS ---
Progress Note: A&P Assessment and Plan (1) Diverticulitis of large intestine with abscess without bleeding: Code(s): K57.20 - Diverticulitis of large intestine with perforation and abscess without bleeding Status: Chronic Assessment and Plan: Doing very well. Less pain today than yesterday. Tolerating solid food. Does not appear patient is having bleeding although there was some blood with bowel movement. Will recheck CBC and BMP again tomorrow. Ambulate today and teach patient to use leg bag. Doing quite well. 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 Pathology pending (3) History of bladder surgery: Code(s): Z98.890 - Other specified postprocedural states Status: Acute Assessment and Plan: Leave Leo catheter in after discharge. Will need cystogram (4) Smoker: Code(s): F17.200 - Nicotine dependence, unspecified, uncomplicated Status: Chronic Assessment and Plan: No complaints from nicotine withdrawal. Subjective Subjective Date/Time Seen: 02/09/22 12:38 Post Op day: 2 Patient reports: feels better, pain is less, tolerating a regular diet, bowel movement and blood in stool Interval history: Patient had large bowel movement about 4:00 a.m. today that did have blood in it. No other bloody bowel movements no passage of aman blood from the rectum. Exam Const: General: comfortable, no acute distress, alert and awake Nutritional Appearance: well nourished Orientation/consciousness: patient oriented x3 GI: Inspection: non-distended and incision (Dressing dry and intact) GI Palp: Yes Soft to palpation, Yes Tenderness to palpation present (GI), No Hernia present and No Palpable mass present Auscultation: Hypoactive bowel sounds present Objective Data Vital Signs Vital Signs: Vital Signs - 24 hr 02/08/22 18:24 02/08/22 22:01 02/09/22 03:36 Temperature 36.7 C 36.4 C L 36.6 C Pulse Rate 82 94 86 Respiratory Rate 18 16 16 Blood Pressure 124/74 147/77 H 149/87 H Pulse Oximetry 97 98 97 02/09/22 08:10 Temperature 36.6 C Pulse Rate 63 Respiratory Rate 18 Blood Pressure 137/71 Pulse Oximetry 98 Intake/Output Intake/Output: Intake & Output 02/06/22 02/07/22 02/08/22 02/09/22 23:59 23:59 23:59 23:59 Intake Total 1755 4022 1440 Output Total 100 5420 1700 Balance 6055 -9956 -179 Meds/Results Medications: Active Medications Generic Name Dose Route Start Last Admin Trade Name Freq PRN Reason Stop Dose Admin Acetaminophen 500 mg 02/07/22 15:06 Acetaminophen 500 Mg Tablet PO Q6H PRN Mild Pain (1-3) or Fever Hydrocodone Bitart/Acetaminophen 1 tab 02/07/22 15:06 Hydrocodone/Acetaminophen (*Crx) 5-325 Mg Tablet PO Q4H PRN Pain Rated 4-6 Hydrocodone Bitart/Acetaminophen 1 tab 02/07/22 15:06 Hydrocodone/Acetaminophen (*Crx) 10-325 Mg Tablet PO Q4H PRN Pain Rated 7-10 Alfuzosin HCl 10 mg 02/08/22 09:00 02/09/22 08:13 Alfuzosin 10 Mg Er Tablet PO 10 mg DAILY RYANN Administration Atorvastatin Calcium 40 mg 02/08/22 09:00 02/09/22 08:13 Atorvastatin 40 Mg Tablet PO 40 mg DAILY RYANN Administration Enoxaparin Sodium 40 mg 02/08/22 09:00 02/09/22 08:57 Enoxaparin 40 Mg/0.4 Ml Syringe SUB-Q 40 mg DAILY RYANN Administration Famotidine 20 mg 02/08/22 09:00 02/09/22 08:13 Famotidine 20 Mg Tablet PO 20 mg Q12HR RYANN Administration Ibuprofen 800 mg in 200 mls @ 400 mls/hr 02/07/22 15:06 Caldolor 800 Mg/200 Ml IVPB Q6H PRN Pain Rated 1-3 Dextrose/Lactated Ringer's 1,000 mls @ 80 mls/hr 02/08/22 07:55 02/09/22 08:58 Dextrose 5%/Lactated Ringers IV CONT 80 mls/hr .[id number] RYANN Administration Morphine Sulfate 2 mg 02/07/22 15:06 Morphine Sulfate (*Crx) 2 Mg/Ml Inj IV PUSH Q2H PRN Pain Rated 4-6 Morphine Sulfate 4 mg
[2022-02-09 12:50] VITALS: BP 127/60; PULSE 76; RESP 18; TEMP 36.5; O2SAT 100
[2022-02-09 20:24] VITALS: BP 155/84; PULSE 67; RESP 12; TEMP 36.6; O2SAT 99
[2022-02-10 00:25] VITALS: BP 138/74; PULSE 70; RESP 16; TEMP 36.5; O2SAT 98
[2022-02-10 04:17] VITALS: BP 132/78; PULSE 70; RESP 16; TEMP 36.5; O2SAT 96
[2022-02-10 05:33] LABS: Hematocrit 33.3 % (42.0-52.0); Hemoglobin 11.1 g/dL (14.0-18.0); Immature Platelet Fraction Pct 5.4 % (0.9-11.2); Mean Corpuscular HGB Conc 33.3 g/dl (32-36); Mean Corpuscular Hemoglobin 32.3 pg (26-34); Mean Corpuscular Volume 96.8 fl (80-100); Mean Platelet Volume 11.2 fl (7.4-10.4); Platelet Count Result 93 k/mm3 (150-375); Red Blood Count 3.44 M/mm3 (4.6-6.20); Red Cell Distribution Width 12.9 % (11.5-14.5); White Blood Count 4.9 K/mm3 (4.5-10.0)
[2022-02-10 05:34] LABS: Anion Gap 6 mmol/L (8-16); Blood Urea Nitrogen 8 mg/dL (9-20); Calcium 8.8 mg/dL (8.4-10.2); Carbon Dioxide 30 mmol/L (22-30); Chloride 98 mmol/L (98-107); Estimated CRCL calculation 105 ml/min; Estimated Glomerular Filt Rate > 60; Glucose 121 mg/dL (65-110); Potassium 3.6 mmol/L (3.4-5.0); Sodium 134 mmol/L (137-145)
[2022-02-10 08:15] VITALS: BP 134/69; PULSE 70; RESP 16; TEMP 36.1; O2SAT 99
[2022-02-10] MEDS: ATORVASTATIN 40 MG TABLET PO (09:00)
[2022-02-10] MEDS: FAMOTIDINE 20 MG TABLET PO (09:00)
[2022-02-10] MEDS: ENOXAPARIN 40 MG/0.4 ML SYRINGE SUB-Q (09:00)
--- NOTE | 2022-02-10 12:45 | PM.DS ---
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 He had a cystogram at that time which did not show any communication with the urinary bladder. This was drained with a long, large diameter, mushroom catheter. The catheter was gradually removed over time with outpatient follow-up. The intra-abdominal portion of the infection healed however the skin and subcutaneous aspect of the abscess failed to heal. He was taken back to surgery and this was debrided and wound VAC therapy was used. None the less, this would not heal and he continued with a small skin opening. This is been managed with a very small mushroom catheter that was keeping drainage facilitated without forming an additional abscess. Recent CT scan prior to surgery did show evidence of a colocutaneous fistula, most likely due to diverticular disease from sigmoid diverticulitis. After discussion, the patient was prepared for surgery and taken to the operating room on 02/07/2022. The patient had been a heavy drinker prior to our initial evaluation last July. He had been abstaining from alcohol but still had evidence of cirrhosis and portal hypertension on imaging. Fortunately at surgery, there was no evidence of portal hypertension and the inflammatory process was really all the issue that had to be managed. The colocutaneous fistula was attached to sigmoid colon. The urinary bladder was also attached to the sigmoid colon as was the appendix. The specimen was removed taking a partial-thickness of the urinary bladder. The appendix was removed separately and sent as a separate specimen. Pathology is pending at the time of this dictation. Patient underwent sigmoidectomy with hand-sewn colorectal anastomosis. The surgery went well. The patient tolerated liquids the night of surgery. He was gradually advanced to soft diet and then regular food. He was comfortable with little were no analgesics and no narcotic analgesics. Due to his partial cystectomy, his bladder was repaired at surgery and he will go home with a Leo catheter in place. He will have a follow-up cystogram this week. Catheter can likely be removed in about 1 week. His wound is healing well and he is discharged today in good condition. Status at Discharge Functional status at discharge: independent ambulation Overall status at discharge: patient is progressing back to baseline Time Spent with Patient Time attestation: Total time spent providing and/or coordinating discharge services: Time spent: Less than 30 minutes Exam Const: General: comfortable and no acute distress; No confusion Orientation/consciousness: patient oriented x3 and No confusion GI: Inspection: non-distended and incision ( Dry and healing well) GI Palp: Yes Soft to palpation, Yes Tenderness to palpation present (GI) ( mild appropriate tenderness), No Guarding due to palpation present (GI) and No Rebound tenderness present Auscultation: normal bowel sounds Neuro: General: patient oriented
[2022-02-10 14:16] VITALS: BP 118/66; PULSE 85; RESP 16; TEMP 36.4; O2SAT 98
== END 2022-02-10 14:00 | disposition home or self-care (01) | DRG 231 ==
LOC: ANH2MED 15:11
PROVIDERS: Admitting Provider Surgery; PCP Physician Assistant; Visit Provider Surgery
PROC: 0DTN0ZZ Resection of Sigmoid Colon, Open Approach (ICD-10-PCS; CPT 44143; principal; 2022-02-07 08:00)
DX: K57.20 Diverticulitis of large intestine with perforation and abscess without bleeding (principal); K63.2 Fistula of intestine; K38.8 Other specified diseases of appendix; K70.30 Alcoholic cirrhosis of liver without ascites; F10.11 Alcohol abuse, in remission; E66.3 Overweight; F17.210 Nicotine dependence, cigarettes, uncomplicated; Z79.899 Other long term (current) drug therapy
CPT/HCPCS: 36415; 80048; 85027; 85055; 88304; 88309; A9270; C1713; C1729; J0690; J1170; J1650; J1885; J2250; J3010; J7120; J7121

== ENCOUNTER 2022-06-23 09:38 | Emergency (ER) | payer OTHER, SELFPAY ==
--- NOTE | ~2022-06-23 | XR_ITS ---
EXAMINATION: XR shoulder RT min 2V DATE: 06/23/2022 11:45 INDICATION: Right shoulder deformity. TECHNIQUE: 2 views of right shoulder were obtained. COMPARISON: Chest 2 views 01/25/2022 FINDINGS: There is chronic inferior dislocation of acromion with respect to distal clavicle. There is chronic widening of coracoclavicular interval. No acute fracture. There are multiple old healed righ t rib fractures. Glenohumeral joint is normal. IMPRESSION: 1. Old type III acromioclavicular separation. Reviewed, dictated and finalized at location A. WRAPPER MACHINE OPERATOR
[2022-06-23 09:49] VITALS: BP 132/54; PULSE 96; RESP 20; TEMP 36.7; O2SAT 99
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
== END 2022-06-23 12:25 | disposition home or self-care (01) ==
PROVIDERS: Emergency Provider Nurse Practitioner Family
DX: S43.141A Inferior dislocation of right acromioclavicular joint, initial encounter (principal); V79.50XA Passenger on bus injured in collision with unspecified motor vehicles in traffic accident, initial encounter; K70.30 Alcoholic cirrhosis of liver without ascites; F17.210 Nicotine dependence, cigarettes, uncomplicated
CPT/HCPCS: 73030; 99213; A4565; G0463

== ENCOUNTER 2022-10-03 15:01 | Outpatient (CLI) | payer OTHER, SELFPAY ==
--- NOTE | ~2022-10-03 | US_ITS ---
EXAMINATION: US carotid duplex BI DATE: 10/03/2022 16:14 INDICATION: Atherosclerosis. TECHNIQUE: Grayscale, color Doppler, and pulsed Doppler images of the cervical carotid arteries were obtained. The degree of vessel stenosis is placed in one of the following categories: normal, <50%, 5 0-69%, >=70% but less than near-occlusion, near-occlusion, or total occlusion. Note that percent sten osis relative to normal distal artery lumen diameter is indirectly measured from velocity measurement s as described by Bhupendra, et al. Radiology 2003; 229:340-346. Notes: Normal: Peak systolic velocity <125 centimeters/sec and no plaque <50%. Peak systolic velocity <125 ( EDV <40; ICA/CCA PSV ratio <2.0; used these factors only a tandem lesions or low cardiac output or co ntralateral disease) 50-69 %: PSV 125-230 (EDV 40-100; ratio 2-4) >= 70% but less than near occlusion: PSV greater than 230 (EDV > 100; ratio> 4.0) Near Occlusion: PSV that is variable; markedly narrowed lumen Occlusion: Absent flow on color/spectral Doppler and no lumen on miller scale. COMPARISON: None. FINDINGS: RIGHT: The right common carotid artery (CCA) peak systolic velocity (PSV) is 83 cm/s. The right internal car otid artery (ICA) PSV is 153 cm/s. The right ICA end-diastolic velocity (EDV) is 55 cm/s. The right I CA/CCA PSV ratio is 1.8. The external carotid artery (ECA) PSV is 247 cm/s. There is antegrade flow i n the right vertebral artery. LEFT: The left CCA PSV is 117 cm/s. The left ICA PSV is 98 cm/s. The left ICA EDV is 31 cm/s. The left ICA/ CCA PSV ratio is 0.8. The ECA PSV is 113 cm/s. There is antegrade flow in the left vertebral artery. IMPRESSION: 1. 50-69% stenosis in the right internal carotid artery by sonographic criteria. 2. Less than 50% stenosis in the left internal carotid artery by sonographic criteria. Reviewed, dictated and finalized at location B. IMPRESSION: 1. 50-69% stenosis in the right internal carotid artery by sonographic criteria . 2. Less than 50% stenosis in the left internal carotid artery by sonographic cr iteria.
== END 2022-10-03 15:02 | disposition home or self-care (01) ==
PROVIDERS: PCP Physician Assistant; Visit Provider Physician Assistant
DX: I65.23 Occlusion and stenosis of bilateral carotid arteries (principal)
CPT/HCPCS: 93880

== ENCOUNTER 2022-11-08 07:05 | Outpatient (CLI) | payer OTHER, SELFPAY ==
--- NOTE | ~2022-11-08 | US_ITS ---
Limited Abdominal Sonogram: Real-time sonographic imaging of the right upper quadrant was performed. Clinical History: Alcoholic cirrhosis of liver Findings: The liver appears heterogeneous, with no evidence of mass lesion or bile duct dilatation. Main portal vein demonstrates normal direction of flow. The gallbladder is well distended, and appear s normal with no evidence of gallstone or wall thickening. The common bile duct measures 6 mm. The v isualized pancreas, aorta, and IVC are unremarkable. Impression: Heterogeneous hepatic echotexture. Correlate for fatty infiltration or other chronic liver disease. Reviewed, dictated and finalized at location M. Impression: Heterogeneous hepatic echotexture. Correlate for fatty infiltration or other ch ronic liver disease.
== END 2022-11-08 07:06 | disposition home or self-care (01) ==
PROVIDERS: PCP Physician Assistant
DX: K70.30 Alcoholic cirrhosis of liver without ascites (principal)
CPT/HCPCS: 76705